=== PATIENT | male | born 1970 | race Caucasian/White ===

== ENCOUNTER 2020-10-07 15:10 | Outpatient (CLI) | payer MEDICARE, MEDICAID, SELFPAY ==
--- NOTE | 2020-10-07 15:31 | XRR_ITS ---
PROCEDURE INFORMATION: Exam: XR Right Hand Exam date and time: 10/07/2020 3:35 PM Age: 49 years old Clinical indication: Pain; Hand; Right; Additional info: Pain RT. Hand TECHNIQUE: Imaging protocol: XR Right hand. Views: 3 or more views. COMPARISON: CR Hand 3 views, RIGHT* [id number] 08/31/2015 8:26 AM FINDINGS: Bones/joints: Negative for acute bony abnormality. Soft tissues: Normal. XR/XR hand RT min 3V* [id number] IMPRESSION: No acute findings.
== END 2020-10-07 15:11 | disposition home or self-care (01) ==
LOC: RAD 15:19
PROVIDERS: PCP Registered Nurse; Visit Provider Registered Nurse
DX: M25.541 Pain in joints of right hand (principal)
CPT/HCPCS: 73130

== ENCOUNTER 2023-01-22 23:33 | Emergency (ER) | payer MEDICARE, MEDICAID, SELFPAY ==
[2023-01-22 23:38] VITALS: BP 165/70; PULSE 87; RESP 18; TEMP 36.6; O2SAT 97; BMI 30.4
--- NOTE | 2023-01-23 00:21 | ED_ITS ---
HPI - Extremity Problem General: Chief complaint: Extremity Injury, Lower Stated complaint: FOOT PAIN Time Seen by Provider: 01/22/23 23:40 History of Present Illness: 52-year-old male patient who is deaf and mute. He is brought in by ambulance due to bilateral foot pain. Police found him around a closed business, and called EMS. He states that he has bilateral foot pain, because he has walked since he got off the [employer] bus in [place] all the way to [place]. No injury. No fever. No chest pain or shortness of breath. No vomiting. MD Complaint: extremity pain and joint pain Onset (ago): hour(s) Pain Consistency: constant Associated symptoms: Deny chest pain or fever(s) Review of Systems Const: Denies: fever(s) Card: Denies: chest pain Resp: Denies: dyspnea or productive cough GI: Denies: abdominal pain or vomiting Physical Exam Const: COMMON NORMALS: no acute distress GENERAL APPEARANCE: cooperative; not ill appearing and not frail appearing HENMT: COMMON NORMALS: normocephalic, atraumatic and Normal external nose present HEAD & SCALP: normocephalic and atraumatic FACE & SINUS: normal facial exam and face symmetric NOSE: Normal external nose present Eye: COMMON NORMALS: Equal, round and reactive pupils present and EOMs intact bilaterally PUPIL: Yes Equal, round and reactive pupils present Neck/C-Spine: GENERAL: Yes trachea midline Chest: CHEST: Yes Symmetrical chest wall rise Resp: COMMON NORMALS: normal respiratory effort, No retractions, No use of acc essory muscles and clear to auscultation bilaterally AUSCULTATION: clear to auscultation bilaterally Cardio: COMMON NORMALS: regular rate and regular rhythm RATE: regular rate RHYTHM: regular rhythm GI: COMMON NORMALS: Normal to inspection, nondistended, normoactive bowel sounds present Extremity: COMMON NORMALS: no pedal edema NARRATIVE EXTREMITY EXAM: Examination of bilateral feet reveals bilateral feet tenderness diffusely. No deformities. Skin changes related to moisture on the plantar surfaces. No significant ulcerations. Neuro: BRITTNEE COMA SCALE: document GCS findings [place] coma scale eye opening: Spontaneous Brittnee coma scale verbal response: Orientated [place] coma scale motor response: Obey commands [place] coma scale total score: 15 SENSORY EXAM: Yes extremities (intact) Psych: COMMON NORMALS: speech normal SPEECH: Yes normal speech Skin: COMMON NORMALS: no rashes or lesions noted GENERAL SKIN EXAM: no rashes or lesions noted Course Vital Signs: Vital signs: Vital Signs Temperature 98 F 01/22/23 23:38 Pulse Rate 72 01/23/23 01:52 Respiratory Rate 18 01/23/23 01:52 Blood Pressure 145/74 01/23/23 01:52 Pulse Oximetry 95 01/23/23 01:52 Oxygen Delivery Me thod Room Air 01/23/23 01:11 MDM - Extremity (Nontraumatic) Medical Decision Making This gentleman's only complaint is bilateral foot pain. There is no significant swelling or deformity to the bilateral feet. He states that his feet hurt because he walked from [place], approximately 80 miles or so. He apparently has family in the area that could come get him. He will be allowed discharge. Discharge Plan Discharge Patient Disposition: Home Clinical Impression: Bilateral foot pain Condition: Stable Prescriptions: New ketorolac 10 mg tablet 10 mg PO TID PRN (Reason: pain) Qty: 10 0RF Discharge Orders: Discharge ED (Routine); Ordered 01/23/23 Ordered By: Mayo Mcmahon Referrals: Kaila Franz FNP [Primary Care Provider] - 4-7 days Patient Instructions: Metatarsalgia (DC), Pain Management Activity Restrictions/Additional Instructions: Rest with your feet elevated. Keep them clean and dry. Ice will help with pain as well. See your doctor next week. Coding Level of Care Code ED Executive Associate for Eugenio Stone
[2023-01-23] MEDS: oxyCODONE-APAP 5-325 mg Tablet 1 TAB PO (01:09)
[2023-01-23 01:11] VITALS: BP 147/70; PULSE 83; RESP 16; O2SAT 97
[2023-01-23 01:52] VITALS: BP 145/74; PULSE 72; RESP 18; O2SAT 95
== END 2023-01-23 01:51 | disposition home or self-care (01) ==
PROVIDERS: Emergency Provider Emergency Medicine; PCP Registered Nurse
DX: M79.672 Pain in left foot (principal); M79.671 Pain in right foot
CPT/HCPCS: 99283

== ENCOUNTER → 2023-03-10 08:39 | Outpatient (BNVA) | payer MEDICARE, MEDICAID, SELFPAY | PROVIDERS: PCP Registered Nurse; Visit Provider Clinical Nurse Specialist Adult Health | DX: E11.9 Type 2 diabetes mellitus without complications (principal) | CPT/HCPCS: 80053; 80061; 83036; 85025 ==

== ENCOUNTER → 2023-06-11 09:39 | Outpatient (BNVA) | payer MEDICARE, MEDICAID, SELFPAY | PROVIDERS: PCP Clinical Nurse Specialist Adult Health; Visit Provider Clinical Nurse Specialist Adult Health | DX: E11.9 Type 2 diabetes mellitus without complications (principal); Z79.4 Long term (current) use of insulin | CPT/HCPCS: 83036 ==

== ENCOUNTER 2023-08-06 17:00 | Emergency (ER) | payer MEDICARE, MEDICAID, SELFPAY ==
--- NOTE | 2023-08-06 17:09 | XRR_ITS ---
PROCEDURE INFORMATION: Exam: XR Left Hand Exam date and time: 08/06/2023 5:28 PM Age: 52 years old Clinical indication: Injury or trauma; Fall; Other: Swelling; Patient HX: PT arrives via EMS with chief complaint of left hand injury. EMS states PT tripped over a stick in the yard and fell forward, attempted to catch self with hands. Obvious deformity to 3 fingers on left hand. TECHNIQUE: Imaging protocol: Radiologic exam of the left hand. Views: 3 or more views. COMPARISON: No relevant prior studies available. FINDINGS: Bones/joints: No fracture. Dislocation of the 3rd 4th and 5th digits at the PIP joint Soft tissues: No acute findings. XR/XR hand LT min 3V* [id number] IMPRESSION: 3-5 digits PIP joint dislocations. No fracture.
--- NOTE | 2023-08-06 17:11 | ED_ITS ---
HPI - Extremity Injury (Upper) General: Chief Complaint: Extremity Injury, Upper Stated Complaint: fall Time Seen by Provider: 08/06/23 17:05 Source: patient Mode of arrival: ambulatory Limitations: no limitations History of Present Illness: 52-year-old male who was walking tripped and fell he landed on his left hand and injured his pinky ring and middle finger on the left hand appears to dislocated all 3 fingers. No lacerations he did receive pain medicine and route his pain is currently a 5 out of 10. Associated symptoms: Denies neck pain Review of Systems Const: Denies: fever(s), chills, body aches or change in appetite ENMT: Denies: throat pain or dental pain Card: Denies: chest pain Resp: Denies: dyspnea GI: Denies: abdominal pain, nausea, vomiting or diarrhea Musc: Reports: extremity pain; Denies: neck pain or back pain Skin/Breast: Denies: rash Neuro: Denies: headache(s) PFS ED PFSH: Medical History Muteness Bilateral hearing loss Generalized anxiety disorder Mild intermittent asthma Essential hypertension Type 2 diabetes mellitus without complications Surgical History Hx of tonsillectomy 2004 History of cochlear implant lost his device. follows with someone in [facility]. History of surgical procedure on mouth reports history of tongue surgery Family History Mother Diabetes Social History Smoking and tobacco/nicotine status: former use of tobacco/nicotine Alcohol intake: never Substance/Drug Use: never Additional social history: living in homeless usp Marital status: Single Highest education level completed: 12th Grade, No Diploma Current occupational status: disabled Physical Exam Const: COMMON NORMALS: no acute distress, patient oriented x3 and healthy appearing HENMT: COMMON NORMALS: normocephalic HEAD & SCALP: normocephalic Neck/C-Spine: COMMON NORMALS: full ROM and supple Chest: COMMONS NORMALS: normal inspection of the chest Resp: COMMON NORMALS: normal respiratory effort Cardio: COMMON NORMALS: regular rate, regular rhythm and No murmurs present (Cardio) RATE: regular rate RHYTHM: regular rhythm Extremity: COMMON NORMALS: full ROM NARRATIVE EXTREMITY EXAM: Dislocations noted to pinky ring and middle finger on the left hand Neuro: COMMON NORMALS: patient oriented x3, moves all extremities and no focal motor deficits Psych: COMMON NORMALS: mental status grossly normal, Normal thought process present and cooperative THOUGHT PROCESS: Normal thought process present Skin: COMMON NORMALS: no rashes or lesions noted and no wounds GENERAL SKIN EXAM: no rashes or lesions noted Procedures Orthopedic Joint Reduction Joint #1: Time Out Performed: Yes Side: left Joint Reduction Location: finger Technique used: traction/counter-traction Post-reduction neuro exam: intact Post-reduction vascular: intact Post Reduction X-Ray Obtained: Yes Post Reduction X-Ray Results: reduced Course Vital Signs: Vital signs: Vital Signs Pulse Rate 83 08/06/23 17:27 Respiratory Rate 15 08/06/23 17:27 Blood Pressure 121/62 08/06/23 17:27 Pulse Oximetry 92 08/06/23 17:27 Oxygen Delivery Me thod Room Air 08/06/23 17:27 MDM - Extremity Injury (Upper) Medical Decision Making Patient presents here with dislocation to left ring pinky and middle fingers was able to successfully reduce the fingers he is stable for discharge follow-up return if worsening. Medical Records I reviewed the patient's medical records. XR interpretation done by ED provider, pending radiology final review ED provider radiology interpretation(s): xr l hand: finger dislocation of 3-5 fingers Discharge Plan Discharge Patient Disposition: Home Clinical Impression: Dislocation, fingers Qualifiers: Encounter type: initial encounter Qualified Code(s): S63.259A - Unspecified dislocation of unspecified finger, initial encounter Condition: Stable Prescriptions: New Naprosyn 500 mg tablet 500 mg PO BID PRN (Reason: pain) Qty: 20 0RF No Action atorvastatin 10 mg tablet 10 mg PO DAILY Qty: 90 3RF albuterol sulfate 90 mcg/actuation HFA aerosol inhaler 2 puff inhalation Q6H PRN (Reason: shortness of breath or wheezing) Qty: 8.5 5RF metformin 1,000 mg tablet 1,000 mg PO BID Qty: 180 3RF Januvia 100 mg tablet 100 mg PO DAILY Qty: 90 3RF insulin glargine [Lantus Solostar U-100 Insulin] 100 unit/mL (3 mL) insulin pen 11 unit SUBCUT BID Qty: 15 11RF (DME) pen needle, diabetic [TechLITE Pen Needle] 31 gauge x 3/16 needle See Rx Instructions .ROUTE .MEDSUPPLY Qty: 100 5RF Rx Instructions: As directed glipizide 10 mg tablet 10 mg PO DAILY Qty: 90 3RF (DME) Blood Glucose Test Strip See Rx Instructions .MEDSUPPLY Qty: 200 12RF Rx Instructions: Use TID as directed with glucometer to check blood sugar (DME) lancets Misc See Rx Instructions .MEDSUPPLY Qty: 200 12RF Rx Instructions: Use as directed to prick skin for blood sugar checks alcohol swabs Pads, Medicated 1 pad topical DIRECTED Qty: 200 12RF Rx Instructions: Use as directed to clean skin prior to finger stick or medication injection (DME) OneTouch Verio test strips Strip See Rx Instructions .ROUTE .MEDSUPPLY Qty: 100 3RF Rx Instructions: As directed (DME) 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 meter Misc See Rx Instructions .MEDSUPPLY Qty: 1 0RF Rx Instructions: Use as directed for checking blood sugar fluticasone propionate [Flovent HFA] 110 mcg/actuation HFA aerosol inhaler 1 puff inhalation BID Qty: 12 11RF olmesartan 20 mg tablet 20 mg PO DAILY Qty: 90 3RF Discharge Orders: Discharge ED (Routine); Ordered 08/06/23 Ordered By: Cheli Marinelli Referrals: Emma Huitron MD [Physician] - 1-3 days Goerge Gupta NP [Primary Care Provider] - 1-3 days Discharge Diet: Advance as tolerated Discharge Activity: Resume usual activity Patient Instructions: Finger Dislocation (ED) Coding Level of Care Code ED Search Specialist for Eugenio Stone
[2023-08-06 17:12] VITALS: BP 121/62; PULSE 85; RESP 16; O2SAT 94
[2023-08-06 17:22] VITALS: RESP 16; O2SAT 93
[2023-08-06] MEDS: morphine 4 mg/mL SDV 1 mL IVP (17:22)
[2023-08-06] MEDS: lidocaine 1% INJ 10 mL (per mL) INJECTION (17:23)
[2023-08-06 17:27] VITALS: BP 121/62; PULSE 83; RESP 15; O2SAT 92
--- NOTE | 2023-08-06 17:39 | XRR_ITS ---
PROCEDURE INFORMATION: Exam: XR Left Hand Exam date and time: 08/06/2023 5:44 PM Age: 52 years old Clinical indication: Patient HX: Lt hand post reduction TECHNIQUE: Imaging protocol: Radiologic exam of the left hand. Views: 3 or more views. COMPARISON: CR (UP EXM, ) 08/06/2023 5:28 PM FINDINGS: Bones/joints: Third, 4th and 5th proximal interphalangeal joints demonstrate normal anatomic alignment. Soft tissues: Normal. XR/XR hand LT 2V [id number] IMPRESSION: Third, 4th and 5th proximal interphalangeal joints demonstrate normal anatomic alignment.
--- NOTE | 2023-08-06 18:16 | PC.NURSE ---
discharge delayed d/t medicaid ride
[2023-08-06 19:58] VITALS: BP 121/62; PULSE 83; RESP 15; O2SAT 92
--- NOTE | 2023-08-09 08:12 | DCPLANNER ---
Message was sent to ortho on 08/06/23 at 0812. Clinic to contact patient.
== END 2023-08-06 19:30 | disposition home or self-care (01) ==
PROVIDERS: Emergency Provider Emergency Medicine; PCP Clinical Nurse Specialist Adult Health
DX: S63.287A Dislocation of proximal interphalangeal joint of left little finger, initial encounter (principal); S63.283A Dislocation of proximal interphalangeal joint of left middle finger, initial encounter; S63.285A Dislocation of proximal interphalangeal joint of left ring finger, initial encounter; W01.0XXA Fall on same level from slipping, tripping and stumbling without subsequent striking against object, initial encounter; I10 Essential (primary) hypertension; E11.9 Type 2 diabetes mellitus without complications; Z87.891 Personal history of nicotine dependence
CPT/HCPCS: 26770; 73120; 73130; 96374; 99284; J2270

== ENCOUNTER 2024-04-09 09:13 | Emergency (ER) | payer MEDICARE, MEDICAID, SELFPAY ==
[2024-04-09 10:11] VITALS: BP 127/62; PULSE 100; RESP 17; TEMP 37.5; O2SAT 97
--- NOTE | 2024-04-09 12:18 | W.ED.SKABFB ---
HPI - Skin/Abscess/Foreign Bdy General: Chief complaint: Skin/Abscess/Foreign Body Stated complaint: spider bite lt arm Time Seen by Provider: 04/09/24 12:18 History of Present Illness: This patient is a deaf gentleman who presents with what he suspects is a spider bite on his left arm. He is homeless and says that [place] in the park when he felt a bite. He is diabetic and is on oral treatment for that. He does have a primary care doctor here in [place]. The bite occurred about 4 days ago. It has gotten more red and painful. He denies fever. He does not feel well in general. Related Data Previous Rx's Medication Instructions Recorded albuterol sulfate 90 mcg/actuation 2 puff inhalation Q6H PRN 03/10/23 aerosol inhaler shortness of breath or wheezing #8.5 grams atorvastatin 10 mg tablet 10 mg PO DAILY #90 tabs 03/10/23 metformin 1,000 mg tablet 1,000 mg PO BID #180 tabs 03/10/23 sitagliptin phosphate 100 mg 100 mg PO DAILY #90 tabs 03/10/23 tablet (Januvia) blood sugar diagnostic (Blood #200 ea 06/11/23 Glucose Test strips) glipizide 10 mg tablet 10 mg PO DAILY #90 tabs 06/11/23 insulin glargine 100 unit/mL (3 11 unit (0.11 mL) SUBCUT BID #15 mL 06/11/23 mL) subcutaneous pen (Lantus Solostar U-100 Insulin) lancets #200 ea 06/11/23 pen needle, diabetic 31 gauge x #100 ea 06/11/23 3/16 (TechLITE Pen Needle) alcohol swabs 1 pad topical DIRECTED #200 ea 07/06/23 blood sugar diagnostic (OneTouch #100 ea 07/06/23 Verio test strips) 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 meter #1 ea 07/06/23 fluticasone propionate 110 1 puff inhalation BID #12 grams 07/06/23 mcg/actuation HFA aerosol inhaler (Flovent HFA) olmesartan 20 mg tablet 20 mg PO DAILY #90 tabs 07/06/23 naproxen 500 mg tablet (Naprosyn) 500 mg PO BID PRN pain #20 tabs 08/06/23 doxycycline hyclate 100 mg capsule 100 mg PO BID 10 days #20 caps 04/09/24 hydrocodone 5 mg-acetaminophen 325 1 tab PO Q6H PRN pain #10 tabs 04/09/24 mg tablet Allergies Allergy/AdvReac Type Severity Reaction Status Date / Time insulin glargine Allergy Unknown Verified 08/06/23 17:20 [From Lantus U-100 Insulin] metformin Allergy Unknown Verified 08/06/23 17:20 sitagliptin [From Januvia] Allergy Unknown Verified 08/06/23 17:20 PFSH ED PFSH: Medical History Muteness Bilateral hearing loss Generalized anxiety disorder Mild intermittent asthma Essential hypertension Type 2 diabetes mellitus without complications Surgical History Hx of tonsillectomy 2004 History of cochlear implant lost his device. follows with someone in [facility]. History of surgical procedure on mouth reports history of tongue surgery Family History Mother Diabetes Social History Smoking and tobacco/nicotine status: former use of tobacco/nicotine Alcohol intake: never Substance/Drug Use: never Additional social history: living in homeless halfway Marital status: Single Highest education level completed: 12th Grade, No Diploma Current occupational status: disabled Physical Exam Const: COMMON NORMALS: no acute distress, no limitations and alert GENERAL APPEARANCE: cooperative and comfortable HENMT: HEAD & SCALP: normal to inspection FACE & SINUS: normal facial exam Eye: GENERAL EYE: appearance normal, both eyes and all related structures Neck/C-Spine: COMMON NORMALS: supple, no meningeal signs and no JVD Chest: COMMONS NORMALS: normal inspection of the chest Resp: COMMON NORMALS: normal respiratory effort, No use of accessory muscles and clear to auscultation bilaterally AUSCULTATION: clear to auscultation bilaterally Cardio: COMMON NORMALS: no JVD, regular rate, regular rhythm and No murmurs present (Cardio) RATE: regular rate RHYTHM: regular rhythm Extremity: COMMON NORMALS: normal to inspection Neuro: COMMON NORMALS: no focal motor deficits SENSORIUM/ORIENTATION: Yes alert MENINGEAL SIGNS: Yes no meningeal signs Psych: COMMON NORMALS: mental status grossly normal, cooperative and normal affect Skin: COMMON NORMALS: turgor normal NARRATIVE SKIN EXAM: On the left upper arm just proximal to the olecranon there is a approximately 1 cm eschar. There is surrounding erythema. No fluctuance. No involvement of the joint. Distal neurovascular function is normal. GENERAL SKIN EXAM: turgor normal Course Vital Signs: Vital signs: Vital Signs Temperature 99.5 F 04/09/24 10:11 Pulse Rate 98 04/09/24 12:55 Respiratory Rate 17 04/09/24 10:11 Blood Pressure 131/72 04/09/24 12:55 Pulse Oximetry 99 04/09/24 12:55 Oxygen Delivery Me thod Room Air 04/09/24 10:11 MDM - Skin/Abscess/Foreign Bdy Medicial Decision Making It is entirely possible that this could be a brown recluse bite. It does appear to be infected with cellulitis and will be treated with doxycycline. The patient does have a low-grade fever of 99.5. He is diabetic but seems to control his blood sugars quite well. He understands the need for follow-up. He understands return precautions. No radiology studies performed this visit Discharge Plan Discharge Patient Disposition: Home Clinical Impression: Muteness, Cellulitis Type 2 diabetes mellitus without complications Qualifiers: Diabetes mellitus penitentiary insulin use: with electronic warfare technical use Qualified Code(s): E11.9 - Type 2 diabetes mellitus without complications Bilateral hearing loss Qualifiers: Hearing loss type: unspecified Qualified Code(s): H91.93 - Unspecified hearing loss, bilateral Brown recluse spider bite Qualifiers: Encounter type: initial encounter Condition: Stable Prescriptions: New hydrocodone-acetaminophen 5-325 mg tablet 1 tab PO Q6H PRN (Reason: pain) Qty: 10 0RF doxycycline hyclate 100 mg capsule 100 mg PO BID 10 Days Qty: 20 0RF No Action atorvastatin 10 mg tablet 10 mg PO DAILY Qty: 90 3RF albuterol sulfate 90 mcg/actuation HFA aerosol inhaler 2 puff inhalation Q6H PRN (Reason: shortness of breath or wheezing) Qty: 8.5 5RF metformin 1,000 mg tablet 1,000 mg PO BID Qty: 180 3RF Januvia 100 mg tablet 100 mg PO DAILY Qty: 90 3RF insulin glargine [Lantus Solostar U-100 Insulin] 100 unit/mL (3 mL) insulin pen 11 unit SUBCUT BID Qty: 15 11RF (DME) pen needle, diabetic [TechLITE Pen Needle] 31 gauge x 3/16 needle See Rx Instructions .ROUTE .MEDSUPPLY Qty: 100 5RF Rx Instructions: As directed glipizide 10 mg tablet 10 mg PO DAILY Qty: 90 3RF (DME) Blood Glucose Test Strip See Rx Instructions .MEDSUPPLY Qty: 200 12RF Rx Instructions: Use TID as directed with glucometer to check blood sugar (DME) lancets Misc See Rx Instructions .MEDSUPPLY Qty: 200 12RF Rx Instructions: Use as directed to prick skin for blood sugar checks alcohol swabs Pads, Medicated 1 pad topical DIRECTED Qty: 200 12RF Rx Instructions: Use as directed to clean skin prior to finger stick or medication injection (DME) OneTouch Verio test strips Strip See Rx Instructions .ROUTE .MEDSUPPLY Qty: 100 3RF Rx Instructions: As directed (DME) 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 meter Misc See Rx Instructions .MEDSUPPLY Qty: 1 0RF Rx Instructions: Use as directed for checking blood sugar fluticasone propionate [Flovent HFA] 110 mcg/actuation HFA aerosol inhaler 1 puff inhalation BID Qty: 12 11RF olmesartan 20 mg tablet 20 mg PO DAILY Qty: 90 3RF Naprosyn 500 mg tablet 500 mg PO BID PRN (Reason: pain) Qty: 20 0RF Discharge Orders: Discharge ED (Routine); Ordered 04/09/24 Ordered By: Gema Pastrana Referrals: George Gupta WAISTBAND SETTER LOCKSTITCH [Primary Care Provider] - Discharge Diet: Usual diet Discharge Activity: Resume usual activity Patient Instructions: Opioid Safety, Pain Management Coding Level of Care Code ED Outdoor Adventure Guides for Eugenio Stone
[2024-04-09 12:55] VITALS: BP 131/72; PULSE 98; O2SAT 99
[2024-04-09] MEDS: doxycycline 100 mg Tablet PO (12:56)
[2024-04-09] MEDS: HYDROcodone-acetaminophen 5-325 mg Tablet 1 TAB PO (12:56)
== END 2024-04-09 12:56 | disposition home or self-care (01) ==
PROVIDERS: Emergency Provider Emergency Medicine; PCP Clinical Nurse Specialist Adult Health
DX: T63.331A Toxic effect of venom of brown recluse spider, accidental (unintentional), initial encounter (principal); H91.93 Unspecified hearing loss, bilateral; E11.9 Type 2 diabetes mellitus without complications; R47.01 Aphasia; Z79.84 Long term (current) use of oral hypoglycemic drugs; Z79.4 Long term (current) use of insulin; L03.114 Cellulitis of left upper limb; Z59.02 Unsheltered homelessness
CPT/HCPCS: 99283

== ENCOUNTER → 2024-05-10 11:53 | Outpatient (BNVA) | payer MEDICARE, MEDICAID, SELFPAY | PROVIDERS: PCP Clinical Nurse Specialist Adult Health; Visit Provider Family Medicine | DX: Z13.220 Encounter for screening for lipoid disorders (principal); Z51.81 Encounter for therapeutic drug level monitoring; E53.8 Deficiency of other specified B group vitamins; E11.9 Type 2 diabetes mellitus without complications; E55.9 Vitamin D deficiency, unspecified | CPT/HCPCS: 80053; 80061; 82306; 82607; 83036; 85025 ==

== ENCOUNTER 2024-07-17 08:56 | Outpatient (CLI) | payer MEDICARE, MEDICAID, SELFPAY ==
[2024-07-17 09:03] VITALS: BMI 33.7
--- NOTE | 2024-07-17 09:04 | ECG_ITS ---
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 Interpretive Statements Lung unchanged pre/post procedure; Intraprocedure shortess of breath; Symptoms resoled by discharge PROCEDURE: At the baseline, the EKG revealed normal sinus rhythm with a poor R wave progression. Diffuse nonspecific T wave changes. Minimal left axis deviation.. The baseline heart was 76 bpm with a blood pressue of 98/69 mm of Hg Lexiscan was infused over a period of 20 seconds. A total of 0.4 milligrams of Lexiscan was infused. The stress phase was continued for a total of 5 minutes. Heart rate at the end of the stress phase was 82 bpm with a blood pressure 96/64 mm of Hg. The EKG at the peak infusion revealed no significant changes. Sestamibi was injected 20 seconds after the Lexiscan infusion. Heart rate at the end of the recovery phase was 80 bpm with a blood pressure of 95/65 mm of Hg. CONCLUSION: 1. No significant EKG changes with the LexiScan infusion 2. No LexiScan induced chest pain or cardiac arrhythmia 3. Normal blood pressure and heart rate response 4. Sestamibi/sestamibi perfusion scan pending; see separate report. Electronically Signed On 07-17-2024 17:49:11 INVENTORY ASSISTANT by He Knight M.D. [email or web address]
--- NOTE | 2024-07-17 09:04 | NMCV_ITS ---
NM bry perf SPECT r/s* [id number] Cristian Kowalski Age: 53 Gender: M : 1970 Exam Date: 07/17/2024 10:17 Ordering Phys: Braulio Hollins MD Technologist: ROME De Leon Exam Location: [facility] Indications: cp STRESS TEST Please see separate stress test report in [facility] for full findings IMAGE PROTOCOL Rest/Stress 1 Lexiscan Day Radiopharmaceutical Dose (mCi) Administration Site Administered by Rest: Tc-99m 10.8 IV ROME De Leon Sestamibi Stress:Tc-99m 33 IV ROME Mcdonald Sestamibi Rest: 17-Jul-2024 60 Discovery 630 Stress: 17-Jul-2024 30 Discovery 630 0.4mg Lexiscan. Images obtained in supine and prone position. SPECT RESULTS Technical Quality: Good Raw Data Analysis: Normal Image Corrections: No attenuation or motion correction applied Summed Stress Score: 22 Summed Rest Score: 17 Summed Difference Score: 5 PERFUSION FINDINGS Moderate to large area of moderate to severely decreased tracer uptake were noted involving all apical segments, basal and mid inferior, mid inferolateral, mid anterior and mid anteroseptal segments. Some reversibility was noted in the apical, inferior and anterior segments FUNCTIONAL RESULTS (calculated via Gated SPECT) Stress Image LV EF (%): 54 Stress EDV (mL):127 TID: 1.06 Stress ESV (mL):59 FUNCTIONAL FINDINGS: Segmental wall motion analysis revealed mild hypokinesis of the LV apex. IMPRESSIONS 1. Myocardial perfusion imaging revealing moderate to large area of moderate to severely decreased tracer uptake involving the anterior, anteroseptal, inferior, inferolateral and all the apical segments with some reversibility suggesting myocardial scarring with ischemia in the distribution of the left anterior descending artery and right coronary artery. The summed stress score was 22 with a difference score of 5 2. Normal LV ejection fraction 54%. 3. Wall motion abnormality as mentioned above. 4. Mildly dilated LV cavity. No similar previous studies are available for comparison Dr He Knight MD FAC (Electronically Signed) Final Date: 17 July 2024 14:03 S
[2024-07-17] MEDS: regadenoson 0.4 Mg/5 ml Syringe IVP (11:28)
[2024-07-17 11:50] VITALS: BP 96/65; PULSE 84
== END 2024-07-17 08:57 | disposition home or self-care (01) ==
PROVIDERS: PCP Family Medicine; Visit Provider Family Medicine
DX: R07.9 Chest pain, unspecified (principal); R94.39 Abnormal result of other cardiovascular function study; I51.7 Cardiomegaly
CPT/HCPCS: 36415; 78452; 93017; 96374; A9500; J2785

== ENCOUNTER → 2024-08-03 12:02 | Outpatient (BNVA) | payer MEDICARE, MEDICAID, SELFPAY | PROVIDERS: PCP Family Medicine; Referring Provider Family Medicine; Visit Provider Internal Medicine Cardiovascular Disease | DX: R07.9 Chest pain, unspecified (principal); R94.39 Abnormal result of other cardiovascular function study | CPT/HCPCS: 99204 ==

== ENCOUNTER 2024-08-17 07:14 | Outpatient (CLI) | payer MEDICARE, MEDICAID, SELFPAY ==
[2024-08-17] VITALS (18 sets, daily range): BP systolic 98–134; BP diastolic 61–80; PULSE 60–74; RESP 10–16; TEMP 37; O2SAT 94–98; BMI 37.0
[2024-08-17 08:16] LABS: Basophils # 0.1 10^3/uL (0.0-0.1); Basophils % 0.8 %; Eosinophils # 0.3 10^3/uL (0.0-0.8); Eosinophils % 3.5 %; Hematocrit 41.3 % (37-53); Lymphocytes # 2.1 10^3/uL (0.8-4.8); Lymphocytes % 27.7 %; Mean Corpuscular HGB Conc 33.9 g/dL (30-55); Mean Corpuscular Hemoglobin 29.2 pg (27-33); Mean Platelet Volume 10.4 fL (7.4-10.4); Monocytes # 0.8 10^3/uL (0.2-0.9); Monocytes % 10.2 %; Neutrophils # 4.43 10^3/uL (1.8-7.7); Neutrophils % 57.4 %; Nucleated Red Blood Cells % 0 %; Platelet Count 196 10^3/cmm (157-399); Red Cell Distribution Width 12.6 % (12.1-15.1); White Blood Count 7.72 10^3/uL (3.29-11.43)
[2024-08-17] MEDS: diphenhydrAMINE 50 mg Capsule PO (08:25)
[2024-08-17] MEDS: aspirin 325 mg Tablet PO (08:25)
[2024-08-17 08:26] LABS: Anion Gap 16.1 (5-19); Blood Urea Nitrogen 20 mg/dL (6-20); Calcium 8.7 mg/dL (8.5-10.5); Carbon Dioxide 26 mmol/L (22-29); Chloride 103 mmol/L (98-107); Glomerular Filtration Rate 100.7 mL/min (90-130); Glucose 163 mg/dL (65-115); Osmolality Calculated 298 mOsm/kg (285-295); Potassium 4.1 mmol/L (3.5-5.1); Sodium 141 mmol/L (136-145)
--- NOTE | 2024-08-17 08:30 | XACV_ITS ---
Exam Room: 2 Ht: 173 cm Wt: 111 kg BSA: 2.35 m2 Gender: Male : 1970 Any Known Allergies: No known allergies Exam Priority: Routine Procedure(s): Procedure Description: Diagnostic procedure Procedure Description: PCI procedure Procedure Description: Left Heart Catheterization Procedure Description: Drug Eluting Coronary Stent Procedure Description: PTCA Procedure Description: Miscellaneous Procedure Description: ACT [facility] Cath Status: Elective Diagnostic Findings * Left Main has no disease. * Circumflex has no disease. * Mid Left Anterior Descending to Distal Left Anterior Descending: subtotal occlusion, MARINO: 1 flow. * Distal Left Anterior Descending: severe 90% stenosis, MARINO: 3 flow. * Mid Right Coronary Artery to Distal Right Coronary Artery: severe 90% stenosis, MARINO: 3 flow. * Distal Right Coronary Artery: severe 90% stenosis, MARINO: 3 flow. * 1st Diagonal: significant 80% stenosis, MARINO: 3 flow. * Coronary angiography shows right dominance. PCI Status: Elective PCI Indication: New Onset Angina <= 2 months Interventional Findings * Mid Left Anterior Descending to Distal Left Anterior Descendin% stenosis treated with a AB MINI TREK 2.00X30 RX BALLOON, MDT R BERNARDO 2.25X30 KENISHA, and MDT NC EUPHORA RX [id number] BALLOON. 0% residual stenosis, MARINO: 3 flow. * Distal Left Anterior Descendin% stenosis treated with a AB MINI TREK 2.00X30 RX BALLOON. 20% residual stenosis, MARINO: 3 flow. * Mid Right Coronary Artery to Distal Right Coronary Artery: 90% stenosis treated with a MDT R BERNARDO 3.0X38 KENISHA, MDT NC EUPHORA RX 3.00Y79FE BALLOON, and MDT NC EUPHORA RX [id number] BALLOON. 0% residual stenosis, MARINO: 3 flow. * Distal Right Coronary Artery: 90% stenosis treated with a AB MINI TREK 2.00X25 RX BALLOON, and MDT R BERNARDO 2.5X30 KENISHA. 0% residual stenosis, MARINO: 3 flow. Conclusions 1. Mid Left Anterior Descending to Distal Left Anterior Descending was treated with a Balloon, Drug Eluting Stent, and Balloon. 2. Distal Left Anterior Descending was treated with a Balloon. 3. Mid Right Coronary Artery to Distal Right Coronary Artery was treated with a Drug Eluting Stent, Balloon, and Balloon. 4. Distal Right Coronary Artery was treated with a Balloon, and Drug Eluting Stent. 5. There is subtotal occlusion coronary artery disease with two vessel disease. Recommendations * 1-Return to inpatient for close monitoring and routine cath care 2-Risk factor modification for secondary prevention 3-Statin and aspirin 81 mg life-long, if tolerated 4-Patient was pre-loaded with 600 mg of Plavix, continue Plavix 75mg p.o. daily for at least one year. We will assess at the end of one year again to continue if further or not 5-Continue optimal medical management 6-Follow up with Dr. Christopher in four weeks and your primary care in 10 days. Interventional RX Recommendation: PCI w/o planned CABG Diagnostic RX Recommendation: PCI w/o planned CABG Pressures Phase:Rest AO : 119 / 72 ( 92 ) @ 11:10:00 AM 117 / 70 ( 92 ) @ 11:10:00 AM 115 / 69 ( 89 ) @ 11:25:00 AM 111 / 67 ( 86 ) @ 11:38:00 AM 105 / 74 ( 89 ) @ 11:47:00 AM 118 / 72 ( 93 ) @ 12:18:00 PM LV : 123 / 6 / 23 @ 11:10:00 AM 124 / 3 / 21 @ 11:10:00 AM Valves Phase:DefaultPhase AV : 0.0 @ 12:41:00 PM 0.0 @ 12:41:00 PM AV Mean Gradient: 0.0 @ 12:41:00 PM Clinical Evaluation EBL: 5mL-10mL Procedural Details Procedure Consent Obtained. Pre-Procedure Time Out. Identified patient by full name and date of as verbalized by the patient/guarantor. Does the consent match the physician's order: Yes. Accurate & Complete Informed Consent: Yes. Inpatient/Outpatient History & Physical on Chart: Yes. If H&P is completed, is and addenduem needed: No. Visualize and Verify Site with Patient/Guarantor: N/A. Relevant Radiology Images available: Yes. The risks, benefits, and alternatives of sedation and/or procedure were discussed by physician. The patient agrees to continue. Procedure started. [facility] Clinical Fraility Score: 3: Managing Well. Vet Tech Indications: Worsening Angina/Unstable angina/Abnormal stress test. Chest Pain Symptom Assessment: Typical Angina Symptoms. Cardiovascular Instability: No. Correct patient, site and procedure confirmed by cath team. PERRLA. Strong, equal hand supervisor plate forming bilaterally. Lungs clear x 5 lobes. IV Site on Arrival: 20 gauge in the left anticubital. IV Fluids: 0.9% NaCl at KVO. 0 mL infused prior to cardiac cath rn. Pre Procedural Pulses: bilateral dorsalis pedis was 1+. Pre Procedural Pulses: bilateral posterior tibial was 1+. Pre Procedural Pulses: bilateral radial was 3+. Oxygen started at 2liters/min via nasal canula. right groin was prepped with chloroprep then draped in the usual sterile fashion. right radial was prepped with chloroprep then draped in the usual sterile fashion. Physician notified. Baseline sample Acquired. HR: 63 BPM. Patient's family unavailable. Equipment: 6F - Radial. Cardiac Cath Pack. ACIST Manifold Kit Model BT 2000. Heparinized Saline (2 units/mL), 1000 mL bag. Physician arrived. Physician scrubbed in. Immediate Pre-Procedure Time Out. Correct Patient: Yes; Correct Procedure: Yes; Correct Site: Yes; Correct Patient Position: Yes; Correct Supplies: Yes; Dried Flammable Prep: Yes; Blood Products Available: N/A;. Lidocaine 1% infiltrated to the right radial. Arterial access obtained. A 5 new zealander Mane catheter in over the exchange J wire. EDP Sample taken: LV 123/6,23; HR: 56 BPM; SpO2: 100%. Pullback taken: LV 124/3,21; AO 119/72(92); Mean: 0mmHg, Peak to Peak: 0mmHg, SEP: 4sec/min; HR: 62 BPM; SpO2: 100%. Catheter removed over the exchange J wire. A 5 new zealander JR4 catheter in over the exchange J wire. Exchange J wire out. 0.035 x 260cm stiff angled glidewire in. Glidewire out. Multiple views taken of right coronary artery. A 5 new zealander JL4 catheter in over the exchange J wire. Catheter removed over the exchange J wire. 6 new zealander XB 3.5 guide catheter was inserted over the exchange J wire. Multiple views taken of left coronary artery. Runthrough guidewire was advanced through the guide catheter to lesion in the mid LAD. ACT drawn. Results 261 seconds. Therapeutic limits - pre-heparin administration 90-150 seconds and monitoring heparin during a vascular procedure >250 seconds. Inflation number : 1 A AB MINI TREK 2.00X30 RX BALLOON was prepped and advanced across the Dist LAD , then inflated to 8 MIGUEL for 0:14 seconds. Inflation number: 1 The AB MINI TREK 2.00X30 RX BALLOON was reinflated across the Mid LAD, to 10 MIGUEL for 0:21 seconds. Inflation number: 2 The AB MINI TREK 2.00X30 RX BALLOON was reinflated across the Mid LAD, to 12 MIGUEL for 0:22 seconds. Inflation number: 3 The AB MINI TREK 2.00X30 RX BALLOON was reinflated across the Mid LAD, to 14 MIGUEL for 0:28 seconds. Inflation number: 4 The AB MINI TREK 2.00X30 RX BALLOON was reinflated across the Mid LAD, to 14 MIGUEL for 0:13 seconds. Balloon out. Results checked. Inflation Number : 5 A MDT R BERNARDO 2.25X30 KENISHA -Lot Number #[id number] prepped and advanced across the Mid LAD. The stent was deployed at 14 MIGUEL for 0:23 seconds. Exp. 2026.11.26. Stent balloon out over wire. Inflation number : 6 A MDT NC EUPHORA RX 2.31Y81PO BALLOON was prepped and advanced across the Mid LAD , then inflated to 12 MIGUEL for 0:16 seconds. Inflation number: 7 The MDT NC EUPHORA RX 2.60Y43DR BALLOON was reinflated across the Mid LAD, to 16 MIGUEL for 0:18 seconds. Inflation number: 8 The MDT NC EUPHORA RX 2.67J44PL BALLOON was reinflated across the Mid LAD, to 14 MIGUEL for 0:21 seconds. Balloon out. Results checked. Wire out. Guide catheter out over the exchange J wire. 6 new zealander AL 0.75 SH guide catheter was inserted over the exchange J wire. ACT drawn. Results 370 seconds. Therapeutic limits - pre-heparin administration 90-150 seconds and monitoring heparin during a vascular procedure >250 seconds. Runthrough guidewire was advanced through the guide catheter to lesion in the distal RCA. Inflation number : 1 A AB MINI TREK 2.00X25 RX BALLOON was prepped and advanced across the Dist RCA , then inflated to 12 MIGUEL for 0:14 seconds. Inflation number: 2 The AB MINI TREK 2.00X25 RX BALLOON was reinflated across the Dist RCA, to 16 MIGUEL for 0:12 seconds. Inflation number: 3 The AB MINI TREK 2.00X25 RX BALLOON was reinflated across the Dist RCA, to 18 MIGUEL for 0:15 seconds. Inflation number: 4 The AB MINI TREK 2.00X25 RX BALLOON was reinflated across the Dist RCA, to 18 MIGUEL for 0:00 seconds. Inflation number: 5 The AB MINI TREK 2.00X25 RX BALLOON was reinflated across the Dist RCA, to 18 MIGUEL for 0:15 seconds. Inflation number: 6 The AB MINI TREK 2.00X25 RX BALLOON was reinflated across the Dist RCA, to 18 MIGUEL for 0:18 seconds. Balloon out. Inflation Number : 7 A MDT R BERNARDO 2.5X30 KENISHA -Lot Number# [id number] was prepped and advanced across the Dist RCA. The stent was deployed at 14 MIGUEL for 0:21 seconds. Exp. . Stent balloon out over wire. Inflation Number : 1 A MDT R BERNARDO 3.0X38 KENISHA -Lot Number# [id number] prepped and advanced across the Mid RCA. The stent was deployed at 14 MIGUEL for 0:19 seconds. Exp. . Stent balloon out over wire. Inflation number : 2 A MDT NC EUPHORA RX [id number] BALLOON was prepped and advanced across the Mid RCA , then inflated to 14 MIGUEL for 0:22 seconds. Inflation number: 3 The MDT NC EUPHORA RX 3.55J05IK BALLOON was reinflated across the Mid RCA, to 14 MIGUEL for 0:22 seconds. Inflation number: 4 The MDT NC EUPHORA RX 3.80O71WM BALLOON was reinflated across the Mid RCA, to 14 MIGUEL for 0:17 seconds. Balloon out. Inflation number : 5 A MDT NC EUPHORA RX 3.61G97VL BALLOON was prepped and advanced across the Mid RCA , then inflated to 12 MIGUEL for 0:08 seconds. Balloon out. ACT drawn. Results 315 seconds. Therapeutic limits - pre-heparin administration 90-150 seconds and monitoring heparin during a vascular procedure >250 seconds. Results checked. Wire out. Guide catheter out. Dr. Christopher scrubbed out. A TR Band was successful obtaining hemostatsis at the Right Radial artery insertion site. Post Procedure: Pulses reassessed and unchanged. PERRLA. Strong, equal hand supervisor plate forming bilaterally. No VTE prophylaxis required. Medication's Wasted: Lidocaine 1% = 18 mL. Medication's Wasted: Nitro = 49.0 mg. Medication's Wasted: Other = Versed 1 mg. Medication's Wasted: Other = Aggrastat 45 mL. Total IV fluids: 150 mL. PCI Indication: CAD (without ischemic symptoms). Post-op diagnosis: PCI of the mid and distal LAD x 1 KENISHA/PCI of the mid and distal RCA x 2 KENISHA. Complications: none. Estimated blood loss: 5mL-10mL. Responsiveness - Normal response to verbal stimuli; alert and oriented, PERRLA. Airway - Unaffected, no intervention required; spontaneous ventilation. Circulation: W/N/L, pulses unchanged. Procedure completed. Nausea/Vomiting: No. Patient transferred by wheelchair to CPRU. Vital chart was stopped. Access Site Site: Right Radial artery Sheath Size: 6 Fr Hemostasis Method: TR Band Hemostasis Success: Successful Procedure Medications Start: 11:01 AM Stop: : AM Medication: Versed Amount: 1 mg Route: I.V. Start: 11:01 AM Stop: : AM Medication: Fentanyl Amount: 50 mcg Route: I.V. Start: 11:03 AM Stop: :03 AM Medication: Nitrogylcerin Amount: 200 mcg Route: I.A. Start: 11:04 AM Stop: :04 AM Medication: Versed Amount: 1 mg Route: I.V. Start: 11:09 AM Stop: 11:09 AM Medication: Heparin Amount: 5000 units Route: I.V. Start: 11:36 AM Stop: 11:36 AM Medication: Heparin Amount: 3000 units Route: I.V. Start: 11:38 AM Stop: 11:38 AM Medication: Nitrogylcerin Amount: 200 mcg Route: I.C. Start: 11:45 AM Stop: 11:45 AM Medication: Aggrastat 12.5 mg/250 mL Amount: 55 ml Route: I.V. bolus Start: 11:47 AM Stop: 11:47 AM Medication: Nitrogylcerin Amount: 200 mcg Route: I.C. Start: 11:50 AM Stop: 11:50 AM Medication: Versed Amount: 1 mg Route: I.V. Start: 11:50 AM Stop: 11:50 AM Medication: Fentanyl Amount: 25 mcg Route: I.V. Start: 12:21 PM Stop: 12:21 PM Medication: Nitrogylcerin Amount: 200 mcg Route: I.C. Start: 12:29 PM Stop: 12:29 PM Medication: Plavix Amount: 600 mg Route: P.O. I, the attending physician, have reviewed and verified all procedure medications. Yes, all medications given per verbal order History/Risk Factors Hypertension: Yes Dyslipidemia: No Peripheral Arterial Disease (PAD): No Myocardial Infarction (DC): No Obesity: Yes Renal Disease: No Tobacco Use: Former Prior Interventions PCI: No CABG: No Valve Surgery: No Report Signatures Interventional Workflow Finalized by Deon Christopher MD on 08/26/2024 06:15 PM Diagnostic Workflow Finalized by Deon Christopher MD on 08/26/2024 06:15 PM
--- NOTE | 2024-08-17 10:24 | P.HP_ITS ---
Same Day Surgery H&P Indication for Procedure/HPI DATE OF PROCEDURE: August 17, 2024 CHIEF COMPLAINT/INDICATIONFOR SURGICAL PROCEDURE: Abnormal stress test Chest pain suggestive of angina pectoris PREOP DIAGNOSIS: Abnormal stress test chest PLANNED PROCEDURE: Operation Date: 08/17/24 08:30 Proposed Procedures p Cardiac Catheterization - [facility] w/wo LV & Coros(Left) - Deon Christopher MD 53-year-old male with hearing deficiency was seen by me in the clinic on 03 August 2024. Patient was complaining of worsening of chest pain along with shortness of breath. Stress test was performed which showed ischemia in LAD and RCA territory patient never had any angiogram or invasive test before. He was started on guideline medical therapy for ischemia. Since he continues to have chest pressure and because of fact stress test was abnormal we decided to bring patient to the Equal Opportunity Counselor. Informed consent was obtained all risk-benefit and alternative for the procedure including 2% risk of stroke major bleed urgent emergent bypass surgery vascular surgery contrast induced nephropathy hematoma were discussed with the patient he would like to proceed with it. Medications/Allergies* Allergies/Adverse Reactions Allergy/AdvReac Type Severity Reaction Status Date / Time No Known Allergies Allergy Verified 08/17/24 08:34 Current Medications: Generic Name Dose Route Start Last Admin Trade Name Freq PRN Reason Stop Dose Admin Sodium Chloride 1,000 mls @ 50 mls/hr 08/17/24 07:30 08/17/24 08:33 Sodium Chloride 0.9% IV 08/18/24 03:29 Not Given .Q20H ONE Pertinent History/Comorbid Conditions* Medical History (Updated 07/31/24 @ 21:01 by Braulio Hollins MD) Muteness Bilateral hearing loss Generalized anxiety disorder Mild intermittent asthma Essential hypertension Type 2 diabetes mellitus without complications Surgical History (Updated 03/10/23 @ 13:12 by George Gupta NP) Hx of tonsillectomy 2003 History of cochlear implant lost his device. follows with someone in [facility]. History of surgical procedure on mouth reports history of tongue surgery Family History (Updated 03/10/23 @ 13:13 by George Gupta NP) Mother, etoh Diabetes Mother Social History Smoking and tobacco/nicotine status: former use of tobacco/nicotine Quit status (tobacco/nicotine): has quit using Year quit tobacco: 1998 Former quit date comment: 03/1999 Alcohol intake: former Year of sobriety/quit date alcohol: 2021 Former alcohol use details: He quit 2 years after his mom Substance/Drug Use: never Additional social history: living in homeless snf Marital status: Single Highest education level completed: 12th Grade, No Diploma Current occupational status: disabled Pertinent Exam Findings alert, oriented x 3, clear to auscultation bilaterally, regular rate & rhythm and operative site marked Conscious Sedation Assessment PATIENT ASSESSED PRIOR TO SEDATION, WITH NO CHANGE NOTED: Yes AIRWAY EVAL/ANESTHESIA PLAN: ASA II, Risks, benefits & alternatives of sedation and/or procedure discussed and Patient agrees to continue as planned Recommendations Surgery/Procedure today Coding Level of Care Code Acute Code for [facility] Fwd
--- NOTE | 2024-08-17 12:32 | P.PCN_ITS ---
Procedure Note: Date of procedure: 08/17/24 Pre-procedure diagnosis: Abnormal stress test/status post PCI to mid LAD and mid and distal RCA Procedure: Left heart catheterization: Subtotally occluded mid and distal LAD with MARINO I flow, high-grade mid and distal RCA long stenosis Status post balloon angioplasty followed by PCI postdilated with noncompliant balloon to mid LAD with excellent angiographic result and tenriism of MARINO-3 flow. Status post balloon angioplasty and 2 overlapping stent placement in mid and distal RCA postdilated noncompliant balloon. Excellent angiographic result with MARINO-3 flow was noted. Due to extreme tortuosity of the right subclavian vessel were not able to perform the LV gram however LVEDP was 26 mmHg (using Mane catheter) Plan: Admit patient for overnight observation Continue aspirin statin Plavix. Patient was loaded with 60 mg Plavix in the Nut Tightener. Cardiac diet. IV fluid 100 mL/h for next 10 hours Radial band as per protocol Full note to be dictated Coding Level of Care Code Acute Code for Eugen[facility] Stone
--- NOTE | 2024-08-17 12:44 | SUR.PHASEI ---
POST CATH NOTE Received patient from mill laborer. Status post peripheral angiogram via the right radial approach.TR Band in place to the radial access site. They are hemostatic and free of hematoma formation or s/s of active bleeding. Verbal post cath instructions went over with the patient. He understood well. Call light in reach. Informed to call for needs. Vitals and assessments per flowsheet.
--- NOTE | 2024-08-17 12:47 | SUR.PHASEI ---
IV FLUIDS IV fluids set at 100 ml/hr post cath as per verbal order from DR Christopher.
--- NOTE | 2024-08-17 15:21 | PC.NURSE ---
Patient transferred to CSU from clinical laboratory medical director with a right radial TR-Band at 1515.
[2024-08-17 17:12] LABS: Glucose Point of Care 172 mg/dL (70-110)
--- NOTE | 2024-08-17 19:21 | PC.NURSE ---
Patient's right radial TR-band is removed. Air is removed slowly 2ml's at a time. A dressing of 2x2 and tegaderm is applied. Patient is reeducated to not use his right hand/wrist for the next 24 hours. Patient wrote understanding.
[2024-08-17] MEDS: atorvastatin 40 mg Tablet PO (20:06)
[2024-08-17 20:52] LABS: Glucose Point of Care 141 mg/dL (70-110)
[2024-08-18 04:13] VITALS: BP 110/64; PULSE 68; RESP 15; O2SAT 95
[2024-08-18 05:34] LABS: Basophils # 0.1 10^3/uL (0.0-0.1); Basophils % 0.7 %; Eosinophils # 0.3 10^3/uL (0.0-0.8); Eosinophils % 2.8 %; Hematocrit 42.3 % (37-53); Lymphocytes # 2.3 10^3/uL (0.8-4.8); Lymphocytes % 22.8 %; Mean Corpuscular HGB Conc 33.1 g/dL (30-55); Mean Corpuscular Hemoglobin 29.2 pg (27-33); Mean Corpuscular Volume 88.1 fl (82-101); Mean Platelet Volume 10.2 fL (7.4-10.4); Monocytes # 0.9 10^3/uL (0.2-0.9); Monocytes % 9.1 %; Neutrophils # 6.33 10^3/uL (1.8-7.7); Neutrophils % 64.1 %; Nucleated Red Blood Cells % 0 %; Platelet Count 176 10^3/cmm (157-399); Red Cell Distribution Width 12.7 % (12.1-15.1); White Blood Count 9.88 10^3/uL (3.29-11.43)
[2024-08-18 06:00] VITALS: PULSE 66
[2024-08-18 06:01] LABS: Anion Gap 14.2 (5-19); Blood Urea Nitrogen 16 mg/dL (6-20); Calcium 8.3 mg/dL (8.5-10.5); Carbon Dioxide 27 mmol/L (22-29); Chloride 102 mmol/L (98-107); Glomerular Filtration Rate 117.5 mL/min (90-130); Glucose 111 mg/dL (65-115); Osmolality Calculated 290 mOsm/kg (285-295); Potassium 4.2 mmol/L (3.5-5.1); Sodium 139 mmol/L (136-145)
[2024-08-18 06:25] LABS: Glucose Point of Care 111 mg/dL (70-110)
[2024-08-18 08:17] VITALS: BP 134/73; PULSE 70; RESP 12; TEMP 36.6; O2SAT 96
[2024-08-18] MEDS: aspirin 81 mg EC Tablet PO (08:44)
[2024-08-18] MEDS: clopidogrel 75 mg Tablet PO (08:44)
--- NOTE | 2024-08-18 09:34 | USCV_ITS ---
Cristian Kowalski Age: 53 Gender: M : 1970 Exam Date: 08/18/2024 10:59 Ordering Phys: Stephanie Samson NP Technologist: Luis Daniel Steve [place] [facility] [place]: nstemi BP: 134 / 73 HR: 72 Rhythm: Sinus Technical Quality: Adequate MEASUREMENTS (Male / Female) Normal Values 2D ECHO LV Diastolic Diameter PLAX 5.4 cm 4.2 - 5.9 / 3.9 - 5.3 cm IVS Diastolic Thickness 1.2 cm 0.6 - 1.0 / 0.6 - 0.9 cm IVS Systolic Thickness 1.6 cm LVPW Diastolic Thickness 1.5 cm 0.6 - 1.0 / 0.6 - 0.9 cm LVPW Systolic Thickness 2.1 cm LVOT Diameter 2.0 cm LV Ejection Fraction 2D Teich 59.1 % LV Ejection Fraction MOD 4C 62.7 % LV Ejection Fraction MOD 2C 60.9 % LV Ejection Fraction 2C AL 61.7 % LA Diameter 3.0 cm RA Systolic Volume 4C AL 42.4 ml RA Systolic Volume 4C MOD 41.2 ml LA Sys Volume AL 49.1 cm cubed LA Sys Volume Index AL 20.8 cm cubed/m squared Aorta at Sinotubular Diameter 2.8 cm IVC Diameter 1.7 cm M-MODE LA Ao Ratio MM 1.2 AV Cusp Separation MM 1.3 cm DOPPLER AV Peak Velocity 127.7 cm/s LVOT Peak Velocity 107.0 cm/s AV Area Cont Eq vti 3.4 cm squared AV Area Cont Eq pk 2.7 cm squared MV Peak Velocity 96.0 cm/s MV Area PHT 5.2 cm squared Mitral E to A Ratio 0.9 TV Peak Velocity 266.0 cm/s TR Peak Velocity 281.0 cm/s TR Peak Gradient 31.6 mmHg TR Mean Velocity 240.0 cm/s TR Mean Gradient 24.7 mmHg TR Velocity Time Integral 67.9 cm PV Peak Velocity 118.0 cm/s RV Ejection Time 0.3 s FINDINGS Left Ventricle Normal left ventricular size, systolic function and wall thickness, with no regional wall motion abnormalities. Left ventricular ejection fraction is estimated at 60 %. Grade I/IV diastolic dysfunction (abnormal relaxation filling pattern), normal to mildly elevated filling pressures. Right Ventricle The right ventricle is normal in size and function. Right Atrium The right atrium is normal in size. Left Atrium The left atrium is normal in size. Mitral Valve Mildly thickened mitral valve. No mitral valve stenosis. Mild mitral valve regurgitation. Aortic Valve Mild aortic valve calcification. No aortic valve stenosis. Trace aortic valve regurgitation. Tricuspid Valve Structurally normal tricuspid valve without significant stenosis or regurgitation. Pulmonic Valve Structurally normal pulmonic valve without significant stenosis. There is no pulmonic regurgitation. Pericardium Normal pericardium without effusion. Aorta Normal ascending aorta dimension. IVC The inferior vena cava appears normal. CONCLUSIONS Normal left ventricular size, systolic function and wall thickness, with no regional wall motion abnormalities. Left ventricular ejection fraction is estimated at 60 %. Grade I/IV diastolic dysfunction (abnormal relaxation filling pattern), normal to mildly elevated filling pressures. There is no pericardial effusion. No significant valve abnormalities. Right atrial pressure is around 5 mm of mercury. Deon Christopher MD (Electronically Signed) Final Date: 19 August 2024 19:49 S
[2024-08-18 11:30] LABS: Glucose Point of Care 174 mg/dL (70-110)
[2024-08-18 12:21] VITALS: BP 137/76; PULSE 72; RESP 15; TEMP 36.6; O2SAT 96
--- NOTE | 2024-08-18 13:12 | P.DS_ITS ---
<Statement entered by Deon Christopher MD - 08/18/24 19:06> Patient was evaluated and cared for in conjunction with an advanced practice practitioner. I personally examined the patient and reviewed the chart and all pertinent data including imaging, telemetry, and laboratory results. I discussed the patient in detail with the advanced practice practitioner. Please see their note for complete H&P testing result and agreed upon plan of care for the patient. Patient denies any complaint. All conversation was performed with the patient in writing in order for comprehension GENERAL: Patient is alert, awake and oriented x3. HEART: Regular S1 and S2. No murmur, rub or gallop. LUNGS: Clear to auscultate bilaterally. CENTRAL NERVOUS SYSTEM: Grossly nonfocal. EXTREMITIES: Lower extremities with out edema bilaterally. Assessment and plan Coronary artery disease status post drug-eluting stent to mid LAD and mid to distal RCA for abnormal stress test Hypertension Hyperlipidemia Continue dual antiplatelet therapy statin beta-katharina. Patient has been explained in detail necessity of using dual antiplatelet therapy for at least 1 year preferably 2. Patient has been advised to follow-up in the clinic Discharge Providers Date of Admission: 08/17/2024 Date of Discharge: August 18, 2024 Attending Provider at Admission: Dr. Christopher Attending Provider at Discharge: Deon Christopher MD Primary Care Provider: Braulio Hollins MD Reason for Visit Reason for Visit: I20.0 Brief History: This is a 53-year-old male with hearing deficiency was seen by Dr. Christopher in the clinic on 03 August 2024. Patient was complaining of worsening of chest pain along with shortness of breath. Stress test was performed which showed ischemia in LAD and RCA territory patient never had any angiogram or invasive test before. He was started on guideline medical therapy for ischemia. Since he continues to have chest pressure and because of fact stress test was abnormal we decided to bring patient to the [facility]. Informed consent was obtained all risk-benefit and alternative for the procedure including 2% risk of stroke major bleed urgent emergent bypass surgery vascular surgery contrast induced nephropathy hematoma were discussed with the patient he would like to proceed Hospital Course Hospital Course Status post balloon angioplasty followed by PCI postdilated with noncompliant balloon to mid LAD with excellent angiographic result and mormon of MARINO-3 flow. Status post balloon angioplasty and 2 overlapping stent placement in mid and distal RCA postdilated noncompliant balloon. Excellent angiographic result with MARINO-3 flow was noted. Patient tolerated procedure well w/o complications. Post cath echo preliminary showed good ejection fraction. Physical Exam Narrative: General: No apparent distress, healthy appearing, well nourished HENMT: chronic hearing deficit noted Muskuloskeletal: Full ROM Lymphatic: no lymphedema noted Respiratory: Normal respiratory effort, clear to auscultation bilaterally throughout all lung patrick, no use of accessory muscles Cardio: No JVD, regular rate, regular rhythm, S1 S2 normal, no murmurs, pe ripheral pulses 2+ radial palpated bilatearlly GI: Normal to inspection, nondistended Extremities: Full ROM, normal, normal capillary refill, no cyanosis or edema Neuro: Alert and oriented x4, no focal motor deficits Psych: Affect normal, denies suicidal ideation, mental status grossly normal Skin: right wrist cath site clean, dry, intact no s/s of hematoma, no bruising, full function Discharge Data Studies Completed and Pending Pending at discharge Category Date Time Status 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 echo complete* [id number] Routine Ultrasound 08/18/24 09:34 Taken Laboratory Results WBC 9.88 10^3/uL (3.29-11.43) 08/18/24 04:39 RBC 4.80 10^6/uL (3.85-5.65) 08/18/24 04:39 Hgb 14.00 g/dL (11.27-16.99) 08/18/24 04:39 Hct 42.3 % (37-53) 08/18/24 04:39 MCV 88.1 fl (82-101) 08/18/24 04:39 MCH 29.2 pg (27-33) 08/18/24 04:39 MCHC 33.1 g/dL (30-55) 08/18/24 04:39 RDW 12.7 % (12.1-15.1) 08/18/24 04:39 Plt Count 176 10^3/cmm (157-399) 08/18/24 04:39 MPV 10.2 fL (7.4-10.4) 08/18/24 04:39 Neut % (Auto) 64.1 % 08/18/24 04:39 Lymph % (Auto) 22.8 % 08/18/24 04:39 [place] % (Auto) 9.1 % 08/18/24 04:39 Eos % (Auto) 2.8 % 08/18/24 04:39 Baso % (Auto) 0.7 % 08/18/24 04:39 Neut # (Auto) 6.33 10^3/uL (1.8-7.7) 08/18/24 04:39 Lymph # (Auto) 2.3 10^3/uL (0.8-4.8) 08/18/24 04:39 [place] # (Auto) 0.9 10^3/uL (0.2-0.9) 08/18/24 04:39 Eos # (Auto) 0.3 10^3/uL (0.0-0.8) 08/18/24 04:39 Baso # (Auto) 0.1 10^3/uL (0.0-0.1) 08/18/24 04:39 Nucleated RBC % (auto) 0 % 08/18/24 04:39 Nucleated RBCs # 0.0 /100WBC 08/18/24 04:39 Sodium 139 mmol/L (136-145) 08/18/24 04:39 Potassium 4.2 mmol/L (3.5-5.1) 08/18/24 04:39 Chloride 102 mmol/L (98-107) 08/18/24 04:39 Carbon Dioxide 27 mmol/L (22-29) 08/18/24 04:39 Anion Gap 14.2 (5-19) 08/18/24 04:39 BUN 16 mg/dL (6-20) 08/18/24 04:39 Creatinine 0.7 mg/dL (0.7-1.2) 08/18/24 04:39 GFR Calculation 117.5 mL/min (90-130) 08/18/24 04:39 Glucose 111 mg/dL (65-115) 08/18/24 04:39 POC Glucose 174 mg/dL (70-110) H 08/18/24 11:05 Calculated Osmolality 290 mOsm/kg (285-295) 08/18/24 04:39 Calcium 8.3 mg/dL (8.5-10.5) L 08/18/24 04:39 Procedures Performed Status post balloon angioplasty followed by PCI postdilated with noncompliant balloon to mid LAD with excellent angiographic result and mormon of MARINO-3 flow. Status post balloon angioplasty and 2 overlapping stent placement in mid and distal RCA postdilated noncompliant balloon. Excellent angiographic result with MARINO-3 flow was noted. Vitals Last Vital Signs Temp 97.8 F 08/18/24 12:21 Pulse 72 08/18/24 12:21 Resp 15 08/18/24 12:21 BP 137/76 08/18/24 12:21 Pulse Ox 96 08/18/24 12:21 O2 Del Method Room Air 08/18/24 12:21 Discharge Plan Discharge Patient Disposition: Home Prescriptions: New clopidogrel [Plavix] 75 mg tablet 75 mg PO DAILY Qty: 90 3RF aspirin 81 mg capsule 81 mg PO DAILY 90 Days Qty: 90 3RF atorvastatin [Lipitor] 80 mg tablet 80 mg PO DAILY 30 Days Qty: 30 0RF Continued albuterol sulfate 90 mcg/actuation HFA aerosol inhaler 2 puff inhalation Q6H PRN (Reason: shortness of breath or wheezing) Qty: 8.5 5RF (DME) lancets Misc See Rx Instructions .MEDSUPPLY Qty: 200 12RF Rx Instructions: Use as directed to prick skin for blood sugar checks fluticasone propionate 110 mcg/actuation HFA aerosol inhaler 1 puff inhalation BID Qty: 12 11RF glipizide 10 mg tablet 10 mg PO DAILY Qty: 90 3RF hydrocodone-acetaminophen 5-325 mg tablet 1 tab PO Q6H PRN (Reason: pain) 5 Days Qty: 10 0RF Naprosyn 500 mg tablet 500 mg PO BID PRN (Reason: pain) Qty: 20 0RF Januvia 100 mg tablet 100 mg PO DAILY Qty: 90 3RF olmesartan 20 mg tablet 20 mg PO DAILY Qty: 90 3RF (DME) Dexcom G6 Sensor Device See Rx Instructions .ROUTE .MEDSUPPLY Qty: 3 6RF Rx Instructions: As directed (DME) Dexcom G6 Digital Court Reporter Misc See Rx Instructions .ROUTE .MEDSUPPLY Qty: 1 0RF Rx Instructions: As directed (DME) Dexcom G6 Transmitter Device See Rx Instructions .ROUTE .MEDSUPPLY Qty: 1 2RF Rx Instructions: As directed (DME) pen needle, diabetic [TechLITE Pen Needle] 31 gauge x 3/16 needle See Rx Instructions .ROUTE .MEDSUPPLY Qty: 100 5RF Rx Instructions: As directed nitroglycerin 0.4 mg tablet, sublingual 0.4 mg sublingual Q5M PRN (Reason: chest pain) Qty: 25 2RF Rx Instructions: do not exceed 3 doses per episode metoprolol succinate 25 mg tablet extended release 24 hr 12.5 mg PO DAILY Qty: 90 3RF alcohol swabs Pads, Medicated 1 pad topical DIRECTED Qty: 200 12RF Rx Instructions: Use as directed to clean skin prior to finger stick or medication injection (DME) OneTouch Verio test strips Strip See Rx Instructions .ROUTE .MEDSUPPLY Qty: 100 3RF Rx Instructions: As directed (DME) Blood Glucose Test Strip See Rx Instructions .MEDSUPPLY Qty: 200 12RF Rx Instructions: Use TID as directed with glucometer to check blood sugar (DME) 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 meter Misc See Rx Instructions .MEDSUPPLY Qty: 1 0RF Rx Instructions: Use as directed for checking blood sugar (DME) FreeStyle Surekha 2 Sensor Kit See Rx Instructions .ROUTE .MEDSUPPLY Qty: 1 6RF Rx Instructions: As directed (DME) FreeStyle Surekha 2 [place] Misc See Rx Instructions .ROUTE .MEDSUPPLY Qty: 1 2RF Rx Instructions: As directed cholecalciferol (vitamin D3) 50 mcg (2,000 unit) capsule 50 mcg PO DAILY Qty: 30 6RF insulin glargine [Lantus Solostar U-100 Insulin] 100 unit/mL (3 mL) insulin pen 15 unit SUBCUT BID Qty: 15 11RF (DME) Diabetic shoes See Rx Instructions .Route .MEDSUPPLY Qty: 2 2RF Rx Instructions: As directed Held metformin 1,000 mg tablet 1,000 mg PO BID Qty: 180 3RF Hold Instructions: Resume on 08/21/24. Discontinued atorvastatin 40 mg tablet 40 mg PO DAILY Qty: 30 6RF Discharge Orders: Discharge Order (Routine); Ordered 08/18/24 Ordered By: Stephanie Samson Referrals: Noy Moreno FNP [Nurse Practitioner] - 7-10 days (We have notified your physician's clinic of the need for a follow-up appointment to be scheduled. If you have not heard from them within the next 2 business days, please call them directly. ) Diet: Advance as tolerated and Diabetic Activity: Resume usual activity Patient Instructions: Aspirin (By mouth), Atorvastatin (By mouth), Clopidogrel (By mouth) (Plavix), Coronary Angioplasty (DC), Post Angiogram Home Care Instructions Activity Restrictions/Additional Instructions: Discussed with patient no heavy lifting more than a gallon of milk. No driving for 3 days. Monitor for and report signs or symptoms of bleeding. Monitor for and report s/s of infection such as fever 101 or greater, swelling, redness or pain to the wrist. Continue dual antiplatelet therapy for 1 year will increase statin to 80 mg as previous LDL was above 100 follow-up with the clinic in 1 week for site check as well as labs Print Language: Moldovan Discharge Attestations Time Spent in Discharge Care*: less than 30 min Quality Metrics Clinical Quality Measures [ No reported AMI, CVA or VTE this stay] Coding Level of Care Code Acute Code for Eugenio Fwchandni
--- NOTE | 2024-08-18 14:20 | PC.NURSE ---
Patient is educated about his discharge paperwork, writing back and forth. Patient writes understanding about his discharge paperwork. Patient is wheeled out of the hospital and SMT picked him up to take him home.
== END 2024-08-18 14:17 | disposition home or self-care (01) ==
LOC: CCL 07:16 → CSU 20:34
PROVIDERS: PCP Family Medicine; Visit Provider Internal Medicine Cardiovascular Disease
DX: I25.110 Atherosclerotic heart disease of native coronary artery with unstable angina pectoris (principal); I25.84 Coronary atherosclerosis due to calcified coronary lesion; I10 Essential (primary) hypertension; E66.9 Obesity, unspecified; Z68.37 Body mass index [BMI] 37.0-37.9, adult; Z87.891 Personal history of nicotine dependence; E11.9 Type 2 diabetes mellitus without complications
CPT/HCPCS: 36415; 36416; 80048; 82962; 85025; 85347; 93306; 93458; 96374; 96375; 96376; 99152; 99153; C1725; C1769; C1874; C1887; C1894; C9600; C9601; J1644; J2250; J3010; J3490; J7030; Q0163; Q9967

== ENCOUNTER 2024-09-01 09:10 | Emergency (ER) | payer MEDICARE, MEDICAID, SELFPAY ==
[2024-09-01 09:27] VITALS: BP 110/66; PULSE 80; RESP 18; TEMP 36.6; O2SAT 98
--- NOTE | 2024-09-01 09:35 | PC.PHAR ---
trace koch [employer]DER - changed atorvastatin dosage to 80mg daily
--- NOTE | 2024-09-01 11:25 | W.ED.EYEPROB ---
HPI - Eye Problem General: Chief complaint: Eye Problems Stated complaint: eyes painful,crusty Time Seen by Provider: 09/01/24 09:39 Source: patient Mode of arrival: ambulatory Limitations: language barrier History of Present Illness: Patient is a 53-year-old male here for bilateral eye redness, crusting, discharge. Patient is deaf and communicates via writing board. He tells me he began noticing drainage from the right eye approximately 3 days ago. He states yesterday he began having drainage from the left eye. He states his eyes are matted in the morning. He states they are red and uncomfortable. No foreign body sensations. No injury or trauma. No visual loss. No severe headache or fevers. He arrives in no acute distress with stable vital signs. He does wear reading glasses. No contacts. chief complaint: eye redness and other (eye discharge) Onset (ago): day(s) Onset description: gradual Duration: constant Location: both eyes Eye Symptoms: burning, redness and discharge Place: home Mechanism: none Severity: moderate Associated symptoms: Reports no associated symptoms; Denies fever(s), headache(s), nausea, neck pain or vomiting Treatments Prior to Arrival: none Related Data Home Medications ?Medication ?Instructions ?Recorded ?Confirmed insulin glargine 100 unit/mL (3 11 unit SUBCUT BID 09/01/24 09/01/24 mL) subcutaneous pen (Lantus Solostar U-100 Insulin) Previous Rx's ?Medication ?Instructions ?Recorded albuterol sulfate 90 mcg/actuation 2 puff inhalation Q6H PRN 03/10/23 aerosol inhaler shortness of breath or wheezing #8.5 grams fluticasone propionate 110 1 puff inhalation BID #12 grams 05/10/24 mcg/actuation HFA aerosol inhaler glipizide 10 mg tablet 10 mg PO DAILY #90 tabs 05/10/24 metformin 1,000 mg tablet 1,000 mg PO BID #180 tabs 05/10/24 Held on 08/18/24. Instructions: Resume on 08/21/24. olmesartan 20 mg tablet 20 mg PO DAILY #90 tabs 05/10/24 sitagliptin phosphate 100 mg 100 mg PO DAILY #90 tabs 05/10/24 tablet (Januvia) cholecalciferol (vitamin D3) 50 50 mcg PO DAILY #30 caps 06/05/24 mcg (2,000 unit) capsule metoprolol succinate 25 mg 12.5 mg (1/2 x 25 mg) PO DAILY #90 08/03/24 tablet,extended release 24 hr tabs nitroglycerin 0.4 mg sublingual 0.4 mg sublingual Q5M PRN chest 08/03/24 tablet pain #25 tabs aspirin 81 mg capsule 81 mg PO DAILY 90 days #90 caps 08/18/24 atorvastatin 80 mg tablet (Lipitor) 80 mg PO DAILY 30 days #30 tabs 08/18/24 clopidogrel 75 mg tablet (Plavix) 75 mg PO DAILY #90 tabs 08/18/24 polymyxin B sulfate 10,000 1 drp ophthalmic (eye) Q3H 7 days 09/01/24 unit-trimethoprim 1 mg/mL eye drops #10 mL Allergies Allergy/AdvReac Type Severity Reaction Status Date / Time No Known Allergies Allergy Verified 08/17/24 08:34 Review of Systems Const: Denies: fever(s), chills, body aches, fatigue or malaise Eyes: Reports: eye discomfort, eye discharge and eye redness; Denies: change in vision, floaters or seeing flashes ENMT: Denies: throat pain, odynophagia, nasal discharge, nasal congestion or sinus pain GI: Denies: nausea or vomiting Musc: Denies: neck pain Skin/Breast: Denies: rash Neuro: Denies: headache(s) [facility] PFSH: Medical History Muteness Bilateral hearing loss Generalized anxiety disorder Mild intermittent asthma Essential hypertension Type 2 diabetes mellitus without complications Surgical History Hx of tonsillectomy 2004 History of cochlear implant lost his device. follows with someone in [facility]. History of surgical procedure on mouth reports history of tongue surgery Family History Mother , etoh Diabetes Social History Smoking and tobacco/nicotine status: former use of tobacco/nicotine Quit status (tobacco/nicotine): has quit using Year quit tobacco: 1998 Former quit date comment: 03/1999 Alcohol intake: former Year of sobriety/quit date alcohol: 2021 Former alcohol use details: He quit 2 years after his mom Substance/Drug Use: never Additional social history: living in homeless nursing home Marital status: Single Highest education level completed: 12th Grade, No Diploma Current occupational status: disabled Physical Exam Const: COMMON NORMALS: no acute distress, average body habitus, no limitations, healthy appearing, alert and well nourished GENERAL APPEARANCE: cooperative HENMT: COMMON NORMALS: normocephalic, atraumatic, external ears normal and Normal external nose present HEAD & SCALP: normal to inspection, normocephalic and atraumatic FACE & SINUS: normal facial exam, sinuses nontender and face symmetric NOSE: Normal external nose present EXTERNAL EAR: Yes external ears normal MOUTH: Normal oral and palatal mucosa present and lip normal THROAT: posterior oropharynx normal and tonsils normal Eye: COMMON NORMALS: Equal, round and reactive pupils present, EOMs intact bilaterally and no scleral icterus GENERAL EYE: normal light reflex VISUAL ACUITY: Yes acuity normal CONJUNCTIVA: Yes conjunctival abnormal positive bilateral conjunctival injection and discharge purulent SCLERA: sclerae normal CORNEA: Yes corneas normal PUPIL: Yes Equal, round and reactive pupils present DIRECT OPHTHALMOSCOPY: Yes normal light reflex OTHER: bilateral purulent discharge/crusting Neck/C-Spine: COMMON NORMALS: full ROM and no meningeal signs Extremity: GENERAL: Yes normal exam except as noted Neuro: COMMON NORMALS: CN's II-XII intact bilaterally SENSORIUM/ORIENTATION: Yes alert MENINGEAL SIGNS: Yes no meningeal signs Skin: COMMON NORMALS: no rashes or lesions noted GENERAL SKIN EXAM: no rashes or lesions noted Course Vital Signs: Vital signs: Vital Signs Temperature 97.8 F 09/01/24 09:27 Pulse Rate 80 09/01/24 09:27 Respiratory Rate 18 09/01/24 09:27 Blood Pressure 110/66 09/01/24 09:27 Pulse Oximetry 98 09/01/24 09:27 Oxygen Delivery Me thod Room Air 09/01/24 09:27 MDM - Eye Problem Medical Decision Making Patient will be treated for bacterial conjunctivitis. Return to ED precautions discussed. Otherwise he can follow-up with primary care if symptoms or not improving. Differential Diagnosis Likely conjunctivitis Medical Records I reviewed the patient's medical records. No radiology studies performed this visit Discharge Plan Discharge Patient Disposition: Home Clinical Impression: Bacterial conjunctivitis Condition: Stable Prescriptions: New polymyxin B sulf-trimethoprim 10,000 unit- 1 mg/mL drops 1 drp ophthalmic (eye) Q3H 7 Days Qty: 10 0RF Rx Instructions: while awake; do not exceed 6 doses in 24 hours No Action albuterol sulfate 90 mcg/actuation HFA aerosol inhaler 2 puff inhalation Q6H PRN (Reason: shortness of breath or wheezing) Qty: 8.5 5RF fluticasone propionate 110 mcg/actuation HFA aerosol inhaler 1 puff inhalation BID Qty: 12 11RF glipizide 10 mg tablet 10 mg PO DAILY Qty: 90 3RF metformin 1,000 mg tablet 1,000 mg PO BID Qty: 180 3RF Januvia 100 mg tablet 100 mg PO DAILY Qty: 90 3RF olmesartan 20 mg tablet 20 mg PO DAILY Qty: 90 3RF nitroglycerin 0.4 mg tablet, sublingual 0.4 mg sublingual Q5M PRN (Reason: chest pain) Qty: 25 2RF Rx Instructions: do not exceed 3 doses per episode metoprolol succinate 25 mg tablet extended release 24 hr 12.5 mg PO DAILY Qty: 90 3RF cholecalciferol (vitamin D3) 50 mcg (2,000 unit) capsule 50 mcg PO DAILY Qty: 30 6RF clopidogrel [Plavix] 75 mg tablet 75 mg PO DAILY Qty: 90 3RF aspirin 81 mg capsule 81 mg PO DAILY 90 Days Qty: 90 3RF atorvastatin [Lipitor] 80 mg tablet 80 mg PO DAILY 30 Days Qty: 30 0RF insulin glargine [Lantus Solostar U-100 Insulin] 100 unit/mL (3 mL) insulin pen 11 unit SUBCUT BID Discharge Orders: Discharge ED (Routine); Ordered 09/01/24 Ordered By: Stephanie Goodrich Referrals: Braulio Hollins MD [Primary Care Provider] - Patient Instructions: Conjunctivitis (ED) Activity Restrictions/Additional Instructions: Apply antibiotic drops in both eyes as prescribed over the next week. You need to follow-up with your primary care provider if symptoms do not improve over the next 3 to 4 days. You need to return to the emergency department for worsening pain, visual loss, fevers, severe headache, or any other concerns you may have. Print Language: Icelandic Coding Level of Care Code ED Family Law Attorney for Chg Fwd
== END 2024-09-01 11:57 | disposition home or self-care (01) ==
PROVIDERS: Emergency Provider Physician Assistant; PCP Family Medicine
DX: H10.89 Other conjunctivitis (principal); Z79.82 Long term (current) use of aspirin; Z79.4 Long term (current) use of insulin; Z79.84 Long term (current) use of oral hypoglycemic drugs; Z87.891 Personal history of nicotine dependence; E11.9 Type 2 diabetes mellitus without complications; I10 Essential (primary) hypertension
CPT/HCPCS: 99283

== ENCOUNTER 2024-11-04 13:38 | Emergency (ER) | payer MEDICARE, MEDICAID, SELFPAY ==
[2024-11-04 13:39] VITALS: BP 140/86; PULSE 74; RESP 16; TEMP 36.5; O2SAT 98
--- NOTE | 2024-11-04 14:24 | W.ED.CHESTPA ---
HPI - Chest Pain General: Chief Complaint: Chest Pain Stated Complaint: chest pain Time Seen by Provider: 11/04/24 13:44 History of Present Illness: 54-year-old male presents to the emergency room with complaint of right-sided chest pain. Goes into his back. Patient is deaf and mute is unable to communicate except by writing we communicated via writing for his history. Pain does not radiate into his neck or arms he has been somewhat short of breath more because it is painful to take a deep breath. He denies any fever sweats chills does have a little bit of dysuria denies abdominal pain has known history of coronary artery disease although this feels different than when he had his heart attack Associated symptoms: Deny abdominal pain, dyspnea or fever(s) Related Data Home Medications ?Medication ?Instructions ?Recorded ?Confirmed atorvastatin 80 mg tablet 80 mg PO DAILY 11/04/24 11/04/24 insulin glargine 100 unit/mL (3 15 unit SUBCUT BID 11/04/24 11/04/24 mL) subcutaneous pen (Lantus Solostar U-100 Insulin) metformin 1,000 mg tablet 1,000 mg PO BID 11/04/24 11/04/24 naproxen 500 mg tablet 500 mg PO BID PRN Pain 11/04/24 11/04/24 Previous Rx's ?Medication ?Instructions ?Recorded fluticasone propionate 110 1 puff inhalation BID #12 grams 05/10/24 mcg/actuation HFA aerosol inhaler glipizide 10 mg tablet 10 mg PO DAILY #90 tabs 05/10/24 olmesartan 20 mg tablet 20 mg PO DAILY #90 tabs 05/10/24 sitagliptin phosphate 100 mg 100 mg PO DAILY #90 tabs 05/10/24 tablet (Januvia) cholecalciferol (vitamin D3) 50 50 mcg PO DAILY #30 caps 06/05/24 mcg (2,000 unit) capsule metoprolol succinate 25 mg 12.5 mg (1/2 x 25 mg) PO DAILY #90 08/03/24 tablet,extended release 24 hr tabs nitroglycerin 0.4 mg sublingual 0.4 mg sublingual Q5M PRN chest 08/03/24 tablet pain #25 tabs aspirin 81 mg capsule 81 mg PO DAILY 90 days #90 caps 08/18/24 clopidogrel 75 mg tablet (Plavix) 75 mg PO DAILY #90 tabs 08/18/24 flash glucose sensor (FreeStyle #2 ea 10/04/24 Surekha 2 Sensor kit) diclofenac sodium 75 mg 75 mg PO Q12H PRN pain #20 tabs 11/04/24 tablet,delayed release Allergies Allergy/AdvReac Type Severity Reaction Status Date / Time No Known Allergies Allergy Verified 08/17/24 08:34 Review of Systems Const: Denies: fever(s) or chills Card: Reports: chest pain and dyspnea on exertion; Denies: swelling of feet/ankles Resp: Denies: dyspnea GI: Denies: abdominal pain : Reports: dysuria; Denies: urinary frequency or urinary urgency Skin/Breast: Denies: rash PFSH ED PFSH: Medical History Muteness Bilateral hearing loss Generalized anxiety disorder Mild intermittent asthma Essential hypertension Type 2 diabetes mellitus without complications Surgical History Hx of tonsillectomy 2004 History of cochlear implant lost his device. follows with someone in [facility]. History of surgical procedure on mouth reports history of tongue surgery Family History Mother , etoh Diabetes Social History Smoking and tobacco/nicotine status: former use of tobacco/nicotine Quit status (tobacco/nicotine): has quit using Year quit tobacco: 1998 Former quit date comment: 03/1999 Alcohol intake: former Year of sobriety/quit date alcohol: 2021 Former alcohol use details: He quit 2 years after his mom Substance/Drug Use: never Additional social history: living in homeless jail Marital status: Single Highest education level completed: 12th Grade, No Diploma Current occupational status: disabled Physical Exam Const: GENERAL APPEARANCE: cooperative ORIENTATION/CONSCIOUSNESS: Yes awake HENMT: COMMON NORMALS: normocephalic, atraumatic and hearing grossly normal bilaterally HEAD & SCALP: normocephalic and atraumatic Resp: COMMON NORMALS: normal respiratory effort, No retractions, No use of accessory muscles and clear to auscultation bilaterally AUSCULTATION: clear to auscultation bilaterally Cardio: COMMON NORMALS: regular rate, regular rhythm and No murmurs present (Cardio) RATE: regular rate RHYTHM: regular rhythm GI: COMMON NORMALS: Soft to palpation and No hepatosplenomegaly present AUSCULTATION: Yes normoactive bowel sounds PALPATION: Yes Soft to palpation, No Tenderness to palpation present (GI), No Guarding due to palpation present (GI) and Yes No hepatosplenomegaly present Extremity: COMMON NORMALS: normal to inspection, capillary refill normal, no clubbing, cyanosis or edema, no calf tenderness and no pedal edema Skin: COMMON NORMALS: no rashes or lesions noted GENERAL SKIN EXAM: no rashes or lesions noted Course Vital Signs: Vital signs: Vital Signs Temperature 97.7 F 11/04/24 13:39 Pulse Rate 68 11/04/24 15:23 Respiratory Rate 16 11/04/24 13:39 Blood Pressure 124/80 11/04/24 15:23 Pulse Oximetry 98 11/04/24 15:23 Oxygen Delivery Me thod Room Air 11/04/24 15:23 MDM - Chest Pain Medical Decision Making Chest x-ray EKG troponins all unremarkable. Description of the pain seems more musculoskeletal start him on anti-inflammatory return if he has further problems Medical Records I reviewed the patient's medical records. Lab Data I reviewed the patient's lab results. 11/04/24 13:55 11/04/24 13:55 Radiology Impressions Chest X-Ray 11/04/24 14:37 IMPRESSION: No acute cardiopulmonary process. Laboratory Results WBC 5.90 10^3/uL (3.29-11.43) 11/04/24 13:55 RBC 4.76 10^6/uL (3.85-5.65) 11/04/24 13:55 Hgb 13.90 g/dL (11.27-16.99) 11/04/24 13:55 Hct 42.3 % (37-53) 11/04/24 13:55 MCV 88.9 fl (82-101) 11/04/24 13:55 MCH 29.2 pg (27-33) 11/04/24 13:55 MCHC 32.9 g/dL (30-55) 11/04/24 13:55 RDW 12.8 % (12.1-15.1) 11/04/24 13:55 Plt Count 229 10^3/cmm (157-399) 11/04/24 13:55 MPV 10.1 fL (7.4-10.4) 11/04/24 13:55 Neut % (Auto) 58.2 % 11/04/24 13:55 Lymph % (Auto) 28.3 % 11/04/24 13:55 [place] % (Auto) 10.0 % 11/04/24 13:55 Eos % (Auto) 2.4 % 11/04/24 13:55 Baso % (Auto) 0.8 % 11/04/24 13:55 Neut # (Auto) 3.43 10^3/uL (1.8-7.7) 11/04/24 13:55 Lymph # (Auto) 1.7 10^3/uL (0.8-4.8) 11/04/24 13:55 [place] # (Auto) 0.6 10^3/uL (0.2-0.9) 11/04/24 13:55 Eos # (Auto) 0.1 10^3/uL (0.0-0.8) 11/04/24 13:55 Baso # (Auto) 0.1 10^3/uL (0.0-0.1) 11/04/24 13:55 Nucleated RBC % (auto) 0 % 11/04/24 13:55 Nucleated RBCs # 0.0 /100WBC 11/04/24 13:55 Sodium 137 mmol/L (136-145) 11/04/24 13:55 Potassium 4.1 mmol/L (3.5-5.1) 11/04/24 13:55 Chloride 102 mmol/L (98-107) 11/04/24 13:55 Carbon Dioxide 26 mmol/L (22-29) 11/04/24 13:55 Anion Gap 13.1 (5-19) 11/04/24 13:55 BUN 10 mg/dL (6-20) 11/04/24 13:55 Creatinine 0.6 mg/dL (0.7-1.2) L 11/04/24 13:55 GFR Calculation 139.9 mL/min (90-130) H 11/04/24 13:55 Glucose 260 mg/dL (65-115) H 11/04/24 13:55 Calculated Osmolality 292 mOsm/kg (285-295) 11/04/24 13:55 Calcium 8.2 mg/dL (8.5-10.5) L 11/04/24 13:55 Total Bilirubin 0.5 mg/dL (0.15-1.2) 11/04/24 13:55 AST 20 U/L (0-40) 11/04/24 13:55 ALT 25 U/L (0-41) 11/04/24 13:55 Alkaline Phosphatase 74 U/L (40-130) 11/04/24 13:55 Troponin T Baseline 23 ng/L (0-15) H 11/04/24 13:55 Troponin T 120 Minute 20.28 ng/L (0-15) H 11/04/24 15:41 Delta Troponin T -2.72 ABS# (0-10) L 11/04/24 15:41 Total Protein 5.9 g/dL (6.6-8.7) L 11/04/24 13:55 Albumin 3.8 g/dL (3.5-5.2) 11/04/24 13:55 Globulin 2.1 g/dL (1.3-4.6) 11/04/24 13:55 All radiology interpretation(s) finalized by discharge EKG Data EKG 1: Interpretation: EKG 11/04/2024 1340 sinus rhythm no acute ST changes noted. Rate 73 DC interval 151 EKG 2: Interpretation: EKG 11/04/2024 1502 normal sinus rhythm no acute EKG changes noted no ST elevation rate of 66 DC interval 176. Discharge Plan Discharge Patient Disposition: Home Clinical Impression: Right-sided chest wall pain Condition: Stable Prescriptions: New diclofenac sodium 75 mg tablet,delayed release (DR/EC) 75 mg PO Q12H PRN (Reason: pain) Qty: 20 0RF No Action fluticasone propionate 110 mcg/actuation HFA aerosol inhaler 1 puff inhalation BID Qty: 12 11RF glipizide 10 mg tablet 10 mg PO DAILY Qty: 90 3RF Januvia 100 mg tablet 100 mg PO DAILY Qty: 90 3RF olmesartan 20 mg tablet 20 mg PO DAILY Qty: 90 3RF nitroglycerin 0.4 mg tablet, sublingual 0.4 mg sublingual Q5M PRN (Reason: chest pain) Qty: 25 2RF Rx Instructions: do not exceed 3 doses per episode metoprolol succinate 25 mg tablet extended release 24 hr 12.5 mg PO DAILY Qty: 90 3RF cholecalciferol (vitamin D3) 50 mcg (2,000 unit) capsule 50 mcg PO DAILY Qty: 30 6RF (DME) FreeStyle Surekha 2 Sensor Kit See Rx Instructions .Route Qty: 2 12RF Rx Instructions: As directed for Diabetes Type 2 clopidogrel [Plavix] 75 mg tablet 75 mg PO DAILY Qty: 90 3RF aspirin 81 mg capsule 81 mg PO DAILY 90 Days Qty: 90 3RF metformin 1,000 mg tablet 1,000 mg PO BID atorvastatin 80 mg tablet 80 mg PO DAILY naproxen 500 mg tablet 500 mg PO BID PRN (Reason: Pain) insulin glargine [Lantus Solostar U-100 Insulin] 100 unit/mL (3 mL) insulin pen 15 unit SUBCUT BID Discharge Orders: Discharge ED (Routine); Ordered 11/04/24 Ordered By: Jamal Trevizo Referrals: Braulio Hollins MD [Primary Care Provider] - Discharge Diet: Usual diet Discharge Activity: Resume usual activity Patient Instructions: Opioid Safety, Pain Management Activity Restrictions/Additional Instructions: Thank you for choosing [facility] for your healthcare needs today. It is very important that you follow up as instructed or that you return to the Emergency Department should you have concerns or if your condition changes or worsens in any way. You were seen in the emergency room with a complaint of right-sided chest pain EKGs and cardiac enzymes were normal. Based on the description of your symptoms to us this appears to be more musculoskeletal in nature you can use diclofenac as needed follow-up with your primary care doctor as needed Print Language: Indonesian Coding Level of Care Code ED Inspector Balance Bridge for Eugenio Stone
--- NOTE | 2024-11-04 14:37 | XRR_ITS ---
PROCEDURE INFORMATION: Exam: XR Chest Exam date and time: 11/04/2024 2:38 PM Age: 54 years old Clinical indication: Chest pressure; Chest pain TECHNIQUE: Imaging protocol: Radiologic exam of the chest. Views: 1 view. COMPARISON: CR XR chest 1V [id number] 12/08/2017 7:29 PM FINDINGS: Lungs: Unremarkable. No consolidation. Pleural spaces: Unremarkable. No pleural effusion. No pneumothorax. Heart/Mediastinum: Unremarkable. No cardiomegaly. Bones/joints: Mild degenerative disease of bilateral acromioclavicular joints. The thoracic spine demonstrates mild degenerative changes at multiple levels. XR/XR chest 1V portable [id number] IMPRESSION: No acute cardiopulmonary process.
--- NOTE | 2024-11-04 14:37 | ECG_ITS ---
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
[2024-11-04 14:42] LABS: Basophils # 0.1 10^3/uL (0.0-0.1); Basophils % 0.8 %; Eosinophils # 0.1 10^3/uL (0.0-0.8); Eosinophils % 2.4 %; Hematocrit 42.3 % (37-53); Lymphocytes # 1.7 10^3/uL (0.8-4.8); Lymphocytes % 28.3 %; Mean Corpuscular HGB Conc 32.9 g/dL (30-55); Mean Corpuscular Hemoglobin 29.2 pg (27-33); Mean Corpuscular Volume 88.9 fl (82-101); Mean Platelet Volume 10.1 fL (7.4-10.4); Monocytes # 0.6 10^3/uL (0.2-0.9); Neutrophils # 3.43 10^3/uL (1.8-7.7); Neutrophils % 58.2 %; Nucleated Red Blood Cells % 0 %; Platelet Count 229 10^3/cmm (157-399); Red Blood Count 4.76 10^6/uL (3.85-5.65); Red Cell Distribution Width 12.8 % (12.1-15.1)
[2024-11-04 14:54] LABS: Troponin(5th) Baseline 23 ng/L (0-15)
[2024-11-04 14:55] LABS: Alanine Aminotransferase 25 U/L (0-41); Albumin Level 3.8 g/dL (3.5-5.2); Alkaline Phosphatase 74 U/L (40-130); Anion Gap 13.1 (5-19); Aspartate Amino Transferase 20 U/L (0-40); Blood Urea Nitrogen 10 mg/dL (6-20); Calcium 8.2 mg/dL (8.5-10.5); Carbon Dioxide 26 mmol/L (22-29); Chloride 102 mmol/L (98-107); Creatinine Clr Calc Pharmacy 159.2884; Globulin 2.1 g/dL (1.3-4.6); Glomerular Filtration Rate 139.9 mL/min (90-130); Glucose 260 mg/dL (65-115); Osmolality Calculated 292 mOsm/kg (285-295); Potassium 4.1 mmol/L (3.5-5.1); Sodium 137 mmol/L (136-145); Total Bilirubin 0.5 mg/dL (0.15-1.2); Total Protein 5.9 g/dL (6.6-8.7)
[2024-11-04] MEDS: aspirin 81 mg Chew Tablet 324 MG PO (14:58)
--- NOTE | 2024-11-04 15:02 | ECG_ITS ---
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
[2024-11-04 15:23] VITALS: BP 124/80; PULSE 68; O2SAT 98
[2024-11-04 16:02] LABS: Troponin 5 2HR 20.28 ng/L (0-15); Troponin 5 2HR Delta -2.72 ABS# (0-10)
[2024-11-04 17:34] VITALS: BP 150/74; PULSE 76; O2SAT 100
[2024-11-04 19:07] VITALS: BP 133/62; PULSE 69; O2SAT 98
== END 2024-11-04 19:09 | disposition home or self-care (01) ==
PROVIDERS: Emergency Provider Family Medicine; PCP Family Medicine
DX: R07.89 Other chest pain (principal); Z79.02 Long term (current) use of antithrombotics/antiplatelets; Z79.82 Long term (current) use of aspirin; Z79.84 Long term (current) use of oral hypoglycemic drugs; Z87.891 Personal history of nicotine dependence; E11.9 Type 2 diabetes mellitus without complications; I10 Essential (primary) hypertension
CPT/HCPCS: 36415; 71045; 80053; 84484; 85025; 93005; 99285; J9999

== ENCOUNTER 2025-01-10 09:29 | Emergency (ER) | payer MEDICARE, MEDICAID, SELFPAY ==
[2025-01-10 09:30] VITALS: BP 110/56; PULSE 57; RESP 15; TEMP 36.4; O2SAT 98; BMI 24.3
--- NOTE | 2025-01-10 09:32 | ECG_ITS ---
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 Measurements Intervals [place] Rate: 58 P: 58 [place]: 162 QRS: -15 QRSD: 105 T: 18 QT: 444 QTc: 440 Interpretive Statements SINUS BRADYCARDIA Compared to ECG 11/04/2024 15:02:13 Sinus rhythm no longer present Myocardial infarct finding no longer present Electronically Signed On 01-11-2025 08:56:32 CDT by Walter Rankin M.D. [email or web address] [id number]
--- NOTE | 2025-01-10 09:32 | XR_ITS ---
WS: [id number] XR chest 1V portable [id number] REASON FOR EXAM: cp FINDINGS: Chest is unchanged compared to 11/04/2024. The heart and the mediastinum are within normal limits. Calcified granulomatous disease bilaterally. No pulmonary parenchymal or pleural abnormality. Mild to moderate degenerative spondylosis in the mid and lower thoracic spine. Moderate osteoarthritis of both shoulder joints. XR/XR chest 1V portable [id number] IMPRESSION: Stable chest with no acute abnormality.
--- NOTE | 2025-01-10 09:36 | ED_ITS ---
HPI - Chest Pain 2 General: Chief Complaint: Chest Pain Stated Complaint: Chest Pain Time Seen by Provider: 01/10/25 09:31 Source: patient and EMS Mode of arrival: EMS Limitations: no limitations History of Present Illness: 54-year-old male states he been having c hest pain since this morning. Sharp pain in the center of his chest came by ambulance they did give him aspirin his pain is improved denies any nausea vomiting or diaphoresis. Denies any worse improved factors. Associated symptoms: Deny abdominal pain, dyspnea, fever(s), nausea or vomiting Related Data Home Medications ?Medication ?Instructions ?Recorded ?Confirmed atorvastatin 80 mg tablet 80 mg PO DAILY 11/04/24 07/09/05 insulin glargine 100 unit/mL (3 15 unit SUBCUT BID 01/10/25 mL) subcutaneous pen (Lantus Solostar U-100 Insulin) metformin 1,000 mg tablet 1,000 mg PO BID 11/04/2409/05 aspirin 81 mg tablet,delayed 81 mg PO DAILY 01/10/25 0 01/10/25 release Previous Rx's ?Medication ?Instructions ?Recorded fluticasone propionate 110 1 puff inhalation BID #12 g ajit 05/10/24 mcg/actuation HFA aerosol inhaler glipizide 10 mg tablet 10 mg PO DAILY #90 tabs 04/13 olmesartan 20 mg tablet 20 mg PO DAILY #90 tabs 04/13 sitagliptin phosphate 100 mg 100 mg PO DAILY #90 tabs 05/10/24 tablet (Januvia) cholecalciferol (vitamin D3) 50 50 mcg PO DAILY #30 ca ps 06/05/24 mcg (2,000 unit) capsule metoprolol succinate 25 mg 12.5 mg (1/2 x 25 mg) PO DA LUANNE #90 08/03/24 tablet,extended release 24 hr tabs nitroglycerin 0.4 mg sublingual 0.4 mg sublingual Q5M PRN chest 08/03/24 tablet pain #25 tabs clopidogrel 75 mg tablet (Plavix) 75 mg PO DAILY #90 t abs 08/18/24 diclofenac sodium 75 mg 75 mg PO Q12H PRN pain #20 t abs 11/04/24 tablet,delayed release alcohol swabs (Alcohol Prep Pads) 1 pad topical .COMPL EX #200 ea 01/04/25 Allergies Allergy/AdvReac Type Severity Reaction Status Date / Time No Known Allergies Allergy Verified 08/17/24 08:34 Review of Systems 2 Const: Denies: fever(s), chills, body aches or change in appetite ENMT: Denies: throat pain or dental pain Card: Reports: chest pain Resp: Denies: dyspnea GI: Denies: abdominal pain, nausea, vomiting or diarrhea Musc: Denies: neck pain or back pain Skin/Breast: Denies: rash Neuro: Denies: headache(s) PFSH ED 2 PFSH: Medical History Muteness Bilateral hearing loss Generalized anxiety disorder Mild intermittent asthma Essential hypertension Type 2 diabetes mellitus without complications Surgical History Hx of tonsillectomy 2003 History of cochlear implant lost his device. follows with someone in [facility]. History of surgical procedure on mouth reports history of tongue surgery Family History Mother , etoh Diabetes Social History Smoking and tobacco/nicotine status: former use of tobacco/nicotine Quit status (tobacco/nicotine): has quit using Year quit tobacco: 1998 Former quit date comment: 03/1999 Alcohol intake: former Year of sobriety/quit date alcohol: 2021 Former alcohol use details: He quit 2 years after his mom Substance/Drug Use: never Additional social history: living in homeless residential Marital status: Single Highest education level completed: 12th Grade, No Diploma Current occupational status: disabled Physical Exam 2 Const: COMMON NORMALS: patient oriented x3 HENMT: COMMON NORMALS: normocephalic and atraumatic HEAD & SCALP: n ormocephalic and atraumatic Eye: COMMON NORMALS: Equal, round and reactive pupils present and EOMs intact bilaterally PUPIL: Yes Equal, round and reactive pupils present Neck/C-Spine: COMMON NORMALS: full ROM and supple Chest: COMMONS NORMALS: normal inspection of the chest and normal palpation of entire chest wall Resp: COMMON NORMALS: normal respiratory effort, No retractions, No use of accessory muscles and clear to auscultation bilaterally AUSCULTATION: clear to auscultation bilaterally Cardio: COMMON NORMALS: regular rate, regular rhythm and No murmurs present (Cardio) RATE: regular rate RHYTHM: regular rhythm GI: COMMON NORMALS: Normal to inspection, nondistended, normoactive bowel sounds present, Soft to palpation, non-tender and no masses PALPATION: Yes Soft to palpation Extremity: COMMON NORMALS: normal to inspection and full ROM Neuro: COMMON NORMALS: patient oriented x3, moves all extremities and no focal motor deficits Psych: COMMON NORMALS: mental status grossly normal, Normal thought process present and cooperative THOUGHT PROCESS: Normal thought process present Skin: COMMON NORMALS: no rashes or lesions noted and no wounds GENERAL SKIN EXAM: no rashes or lesions noted Course 2 Vital Signs: Vital signs: Vital Signs Temperature 97.6 F 01/10/25 09:30 Pulse Rate 53 L 01/10/25 12:08 Respiratory Rate 18 01/10/25 11:15 Blood Pressure 126/71 01/10/25 12:08 Pulse Oximetry 99 01/10/25 12:08 Oxygen Delivery Me thod Room Air 01/10/25 11:15 MDM - Chest Pain Medical Decision Making Patient presents for chest pain is atypical in nature initial repeat troponin here negative no signs of ACS no signs of pulmonary embolism he stable for discharge follow-up PCP return if worsening. Medical Records I reviewed the patient's medical records. Lab Data I reviewed the patient's lab results. 01/10/25 09:35 01/10/25 09:35 Radiology Impressions Chest X-Ray 01/10/25 09:32 IMPRESSION: Stable chest with no acute abnormality. Laboratory Results WBC 8.86 10^3/uL (3.29-11.43) 01/10/25 09:35 RBC 4.98 10^6/uL (3.85-5.65) 01/10/25 09:35 Hgb 14.80 g/dL (11.27-16.99) 01/10/25 09:35 Hct 43.9 % (37-53) 01/10/25 09:35 MCV 88.2 fl (82-101) 01/10/25 09:35 MCH 29.7 pg (27-33) 01/10/25 09:35 MCHC 33.7 g/dL (30-55) 01/10/25 09:35 RDW 12.7 % (12.1-15.1) 01/10/25 09:35 Plt Count 179 10^3/cmm (157-399) 01/10/25 09:35 MPV 10.5 fL (7.4-10.4) H 01/10/25 09:35 Neut % (Auto) 71.1 % 01/10/25 09:35 Lymph % (Auto) 18.7 % 01/10/25 09:35 [place] % (Auto) 8.0 % 01/10/25 09:35 Eos % (Auto) 0.9 % 01/10/25 09:35 Baso % (Auto) 0.7 % 01/10/25 09:35 Neut # (Auto) 6.30 10^3/uL (1.8-7.7) 01/10/25 09:35 Lymph # (Auto) 1.7 10^3/uL (0.8-4.8) 01/10/25 09:35 [place] # (Auto) 0.7 10^3/uL (0.2-0.9) 01/10/25 09:35 Eos # (Auto) 0.1 10^3/uL (0.0-0.8) 01/10/25 09:35 Baso # (Auto) 0.1 10^3/uL (0.0-0.1) 01/10/25 09:35 Nucleated RBC % (auto) 0 % 01/10/25 09:35 Nucleated RBCs # 0.0 /100WBC 01/10/25 09:35 PT 14.20 SECONDS (12.1-14.9) 01/10/25 09:35 INR 1.03 (0.8-1.2) 01/10/25 09:35 Sodium 139 mmol/L (136-145) 01/10/25 09:35 Potassium 4.3 mmol/L (3.5-5.1) 01/10/25 09:35 Chloride 105 mmol/L (98-107) 01/10/25 09:35 Carbon Dioxide 19 mmol/L (22-29) L 01/10/25 09:35 Anion Gap 19.3 (5-19) H 01/10/25 09:35 BUN 32 mg/dL (6-20) H 01/10/25 09:35 Creatinine 1.2 mg/dL (0.7-1.2) 01/10/25 09:35 GFR Calculation 62.9 mL/min (90-130) L 01/10/25 09:35 Glucose 94 mg/dL (65-115) 01/10/25 09:35 Calculated Osmolality 295 mOsm/kg (285-295) 01/10/25 09:35 Calcium 8.5 mg/dL (8.5-10.5) 01/10/25 09:35 Total Bilirubin 0.6 mg/dL (0.15-1.2) 01/10/25 09:35 AST 16 U/L (0-40) 01/10/25 09:35 ALT 16 U/L (0-41) 01/10/25 09:35 Alkaline Phosphatase 61 U/L (40-130) 01/10/25 09:35 Troponin T Baseline 20 ng/L (0-15) H 01/10/25 09:35 Troponin T 120 Minute 17.07 ng/L (0-15) H 01/10/25 11:14 Delta Troponin T -2.93 ABS# (0-10) L 01/10/25 11:14 Total Protein 6.7 g/dL (6.6-8.7) 01/10/25 09:35 Albumin 4.1 g/dL (3.5-5.2) 01/10/25 09:35 Globulin 2.6 g/dL (1.3-4.6) 01/10/25 09:35 Lipase 70 U/L (13-60) H 01/10/25 09:35 All radiology interpretation(s) finalized by discharge EKG Data EKG 1: I personally reviewed and interpreted this EKG as follows: EKG interpretation date: 01/10/25 EKG interpretation time: 09:36 Interpretation: sinus darian hr [address] elevation qrs 105 qtc 442 Discharge Plan Discharge Patient Disposition: Home Clinical Impression: Chest pain Condition: Stable Prescriptions: No Action fluticasone propionate 110 mcg/actuation HFA aerosol inhaler 1 puff inhalation BID Qty: 12 11RF glipizide 10 mg tablet 10 mg PO DAILY Qty: 90 3RF Januvia 100 mg tablet 100 mg PO DAILY Qty: 90 3RF olmesartan 20 mg tablet 20 mg PO DAILY Qty: 90 3RF nitroglycerin 0.4 mg tablet, sublingual 0.4 mg sublingual Q5M PRN (Reason: chest pain) Qty: 25 2RF Rx Instructions: do not exceed 3 doses per episode metoprolol succinate 25 mg tablet extended release 24 hr 12.5 mg PO DAILY Qty: 90 3RF cholecalciferol (vitamin D3) 50 mcg (2,000 unit) capsule 50 mcg PO DAILY Qty: 30 6RF alcohol swabs [Alcohol Prep Pads] Pads, Medicated 1 pad topical .COMPLEX Qty: 200 11RF Rx Instructions: 1 pad topically USE ONE PAD TOPICALLY DIRECTED; USE DIRECTED TO CLEAN SKIN PRIOR TO FINGER STICK OR MEDICATION INJECTION; clopidogrel [Plavix] 75 mg tablet 75 mg PO DAILY Qty: 90 3RF metformin 1,000 mg tablet 1,000 mg PO BID atorvastatin 80 mg tablet 80 mg PO DAILY insulin glargine [Lantus Solostar U-100 Insulin] 100 unit/mL (3 mL) insulin pen 15 unit SUBCUT BID diclofenac sodium 75 mg tablet,delayed release (DR/EC) 75 mg PO Q12H PRN (Reason: pain) Qty: 20 0RF aspirin [Aspir-81] 81 mg Tablet,Delayed Release (Dr/Ec) 81 mg PO DAILY Discharge Orders: Discharge ED (Routine); Ordered 01/10/25 Ordered By: Cheli Marinelli Referrals: Braulio Hollins MD [Primary Care Provider, Family Practice] - 4-7 days Discharge Diet: Advance as tolerated Discharge Activity: Resume usual activity Patient Instructions: Chest Pain (ED) Print Language: Qatari Sign Language Coding Level of Care Code ED Kinesiotherapist for Eugenio Stone
--- OUTSIDE RECORDS SUMMARY | 2025-01-10 09:37 | XMS_ITS | Clinical Summary ---
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 Active montelukast (SINGULAIR) 10 mg tabletIndications :Mild intermittent asthma without complication Take 1 Tablet (10 mg) by mouth late in the day. 90 Tablet 3 9 Active carBAMazepine (TEGretol) 200 mg tabletIndications :Bipolar disorder, in partial remission, most recent episode mixed ([facility]) Take 1 Tablet (200 mg) by mouth 2 times daily. 180 Tablet 3 9 Active OneTouch Delica Plus Lancet 33 gauge USE TO CHECK BLOOD SUGAR ONCE DAILY 0 Active albuterol HFA 90 mcg inhalerIndication s:Mild intermittent asthma without complication TAKE 2 PUFFS BY INHALATION EVERY 6 HOURS NEEDED FOR SHORTNESS OF BREATH. 18 Gram 5 0 Active atorvastatin (LIPITOR) 10 mg tablet Take 1 Tablet (10 mg) by mouth daily. 90 Tablet 3 0 Active glipiZIDE (GLUCOTROL) 10 mg tabletIndications :Type 2 diabetes mellitus without complication, without long-term current use of insulin (CMS/HCC) Take 1 Tablet (10 mg) by mouth 2 times daily. 180 Tablet 3 0 Active SITagliptin (Januvia) 100 mg TabletIndications :Type 2 diabetes mellitus without complication, without long-term current use of insulin (CMS/[facility]) Take 1 Tablet (100 mg) by mouth daily with breakfast. 90 Tablet 3 0 Active Lantus Solostar U-100 Insulin 100 unit/mL (3 mL) solution for injection INJECT 25 UNITS SC D. 15 mL 2 0 Active olmesartan (BENICAR) 20 mg tabletIndications :Essential hypertension Take 1 Tablet (20 mg) by mouth daily. 90 Tablet 3 0 Active Blood-Glucose Meter (Blood Glucose Monitoring) KitIndications:Ty pe 2 diabetes mellitus without complication, without long-term current use of insulin ([facility]) Check blood sugars TID. Please provide strips and lancets as well that are covered by insurance. 1 Kit 1 Active blood sugar diagnostic (Blood Glucose Test) StripIndications: Type 2 diabetes mellitus without complication, without long-term current use of insulin ([facility]) Check blood sugar daily 100 Strip 6 1 Active metFORMIN (GLUCOPHAGE) 1,000 mg tabletIndications :Type 2 diabetes mellitus without complication, without long-term current use of insulin ([facility]) TAKE 1 TABLET BY MOUTH 2 TIMES DAILY. 180 Tablet 1 1 Active Flovent HFA 110 mcg/actuation HFA Aerosol InhalerIndication s:Mild intermittent asthma without complication INHALE 2 PUFFS BY MOUTH 2 TIMES DAILY. 12 Gram 11 1 Active empagliflozin (Jardiance) 10 mg tablet TAKE 1 TABLET BY MOUTH DAILY 90 Tablet 4 1 Active Active Problems Problem Noted Date Diagnosed Date Type 2 diabetes mellitus wit hout complication, without long-term current use of insulin 02/01/2019 Essential hypertension 02/01/2019 Bipolar disorder, in partial remission, most recent episode mixed 02/01/2019 Mild intermittent asthma without complication Cochlear implant in place with multiple channels 04/11/1989 Sensory hearing loss, bilateral 07/12/1970 Immunizations Immunization Administration Dates Next Due INFLUENZA VACCINE QUADRIVALENT 3 YR UP [facility] 08/2019 INFLUENZA VACCINE QUADRIVALENT 6 MOS UP [facility] ,03/09/2018 Social History Tobacco Use Types Packs/Day Years Used Date Smoking Tobacco: Never Smokeless Tobacco: Never Alcohol Use Standard Drinks/Week Comments Never 0 (1 standard drink = 0.6 oz pur e alcohol) Sex and Gender Information Value Date Recorded Sex Assigned at Not on file Legal Sex Male 2:18 PM CDT Gender Identity Not on file Sexual Orientation Not on file Last Filed Vital Signs Vital Sign Reading Time Taken Comments Blood Pressure 119/67 11/11/2020 9:18 AM CDT Pulse 95 11/11/2020 9:18 AM CDT Temperature 36.4 C (97.6 F) 11/11/2020 9:18 AM CDT Respiratory Rate 18 08/12/2020 10:0 9 AM 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 95% 11/11/2020 9:18 AM CDT Inhaled Oxygen Concentration - - Weight 113.1 kg (249 lb 6.4 oz) 11/11/2020 9:18 AM CDT Height 172.7 cm (5' 8 ) 11/11/2020 9:18 AM CDT Body Mass Index 37.92 11/11/2020 9:18 AM CDT Plan of Treatment Health Maintenance Due Date Last Done Comments FIT/ DNA Q 3 YEARS (AUTO ORDER) 10/31/1987 FIT/FOBT Q 1 YEAR (AUTO ORDER) 10/31/1987 FLEX SIG/CT COLONOGRAPHY Q 5 YEARS (AUTO ORDER) 10/31/1987 DTAP/TDAP/TD VACCINES (1 - Tdap) 1988 HEPATITIS B VACCINES (1 of 3 - 19+ 3-dose series) 1988 COLORECTAL CANCER SCREENING (AUTO ORDER) 2014 COLORECTAL SCREENING 2014 Colorectal Cancer Screening (AUTO ORDER) 2014 Colorectal Cancer Screening 2014 FIT-DNA Q 3 years 2014 FIT/FOBT Q 1 year 2014 Flex Sig/CT Colonography Q 5 years 2014 ZOSTER VACCINE (1 of 2) 10/31/2019 DIABETES MICROALBUMIN ANNUAL SCREEN 10/11/2020 10/12/2019, 02/01/2019, 03/07/2018 DIABETES ANNUAL FOOT EXAM 04/09/2021 04/09/2020 DIABETES HBA1C Q 6 MONTHS 05/14/20212020, 08/12/2020, 05/10/2020, Additional history exists LDL CHOLESTEROL ANNUAL 11/11/2021 , 05/10/2020, 01/10/2020, Additional history exists DIABETES ANNUAL RETINAL EXAM 08/04/2022, 03/24/2021, 09/18/2020 INFLUENZA VACCINE (#1) 2024 , 03/13/2020, 03/09/2018 [place] ([place]) Preventative Visit/Annual Wellness Visit 07/12/2024 04/09/2020 Procedures Procedure Name Priority Date/Time Associated Diagnosis Comments LIPID PANEL Routine 11/11/2020 9:57 AM CDT Type 2 diabetes mellitus without complication, without long-term current use of insulin ([facility]) HEMOGLOBIN A1C Routine 11/11/2020 9:57 AM CDT Type 2 diabetes mellitus without complication, without long-term current use of insulin ([facility]) DIABETES EYE EXAM Routine 09/18/2020 MICROALBUMIN/CREATIN INE RATIO, RANDOM UR Routine 10/12/2019 from Last 3 Months or Most Recently Relevant to Health Maintenance Results * (ABNORMAL) HEMOGLOBIN A1C (11/11/2020 9:57 AM CDT) HEMOGLOBIN A1C 10.9(H) See Comment % 11/11/2020 8:53 PM CDT [facility] EST. AVG GLUCOSE, A1C 266 mg/dL 11/11/2020 8:53 PM CDT [facility] Blood Venipuncture / Unknown 11/11/2020 9:57 AM CDT 11/11/2020 8:19 PM CDT Narrative [facility] - 11/11/2020 8:53 PM CDT HGB A1C INTERPRETATION NORMAL: <5.7% PRE-DIABETES: 5.7 - 6.4% DIABETES: 6.5% OR GREATER Falsely low A1C measurements can occur when: 1. Anemia and/or hemolytic anemia is present. 2. Hemoglobin variants present. 3. Renal failure. 4. Transfusion of blood product in the last 120 days. We recommend ordering a fructosamine test([id number]) to more accurately assess glycemic status if any of the above conditions are present. us Kaila BOUDREAUXP CHEMISTRY ORDERABLES Final Re sult Performing Organization Address [facility]/ZIP Co de Phone Number [facility] CLIA# [id number] [address] [place] [address] * LIPID PANEL (11/11/2020 9:57 AM CDT) CHOLESTEROL 151 <200 mg/dL 11/11/2020 9:19 PM CDT [facility] TRIGLYCERIDE 115 <150 mg/dL 11/11/2020 9:19 PM CDT [facility] HDL 46 40 - 59 mg/dL 11/11/2020 9:19 PM CDT [facility] LDL CALCULATED 82 <100 mg/dL 11/11/2020 9:19 PM CDT [facility] NON-HDL CHOLESTEROL 105 <130 mg/dL 11/11/2020 9:19 PM CDT [facility] Blood Venipuncture / Unknown 11/11/2020 9:57 AM CDT 11/11/2020 8:18 PM CDT Narrative [facility] - 11/11/2020 9:19 PM CDT TOTAL CHOLESTEROL mg/dL Desirable <200 Borderline high 200-239 High >=240 TRIGLYCERIDES mg/dL Normal <150 Borderline high 150-199 High 200-499 Very high >=500 HDL CHOLESTEROL mg/dL Low <40 Normal 40-59 Desirable >=60 NON HDL CHOLESTEROL mg/dL Optimal <130 Near Optimal 130-159 Borderline High 160-189 Very High >=190 CALCULATED LDL mg/dL LDL <70, OPTIMAL if have Atherosclerotic cardiovascular disease (ASCVD) or intermediate or higher (>7.5%) 10 year risk of ASCVD including most adults with diabetes. LDL <100, Optimal in adult patients with low (<7.5%) 10 year ASCVD risk LDL 100-160, Suboptimal LDL >160, High LDL >190, Very high ATPIII Guidelines Reference Ranges for Lipid Panels (NCEP/AMA) . Kaila Franz [facility] CHEMISTRY ORDERABLES Final Re sult Performing Organization Address City/[facility]/ZIP Co de Phone Number [facility] CLIA# [id number] [address] [place] [address] * DIABETES EYE EXAM (09/18/2020) us Abstract Spg Provider HEALTH MAINTENANCE Final R esult * MICROALBUMIN/CREATININE RATIO, RANDOM UR (10/12/2019) ABSTRACTED MICROALBUMIN,URI NE 5.0 EXTERNAL LAB MICROALBUMIN, URINE EXTERNAL LAB CREATININE, URINE EXTERNAL LAB MICROALBUMIN/CRE AT RATIO, UR EXTERNAL LAB MICROALBUMIN, URINE EXTERNAL LAB CREATININE, URINE EXTERNAL LAB MICROALBUMIN/CRE AT RATIO, UR EXTERNAL LAB Urine URINE SPECIMEN OBTAINED BY CLEAN CATCH PROCEDURE / Unknown 10/12/2019 us Abstract Sp Provider URINE ORDERABLES Final Res ult EXTERNAL LAB from Last 3 Months or Most Recently Relevant to Health Maintenance Insurance MEDICAID [facility] Care Teams Plant Operations Engineer Relationship Specialty Start Date End Date Kimberlee Ward DO [address] [place] [id number] PCP - General Family Practice 02/01/19
[2025-01-10 09:45] VITALS: PULSE 60; RESP 12; O2SAT 99
[2025-01-10 09:45] LABS: Hematocrit 43.9 % (37-53); Hemoglobin 14.80 g/dL (11.27-16.99); Mean Corpuscular HGB Conc 33.7 g/dL (30-55); Mean Corpuscular Hemoglobin 29.7 pg (27-33); Mean Corpuscular Volume 88.2 fl (82-101); Nucleated Red Blood Cells % 0 %; Platelet Count 179 10^3/cmm (157-399); Red Blood Count 4.98 10^6/uL (3.85-5.65); White Blood Count 8.86 10^3/uL (3.29-11.43)
[2025-01-10 09:52] LABS: INR 1.03 (0.8-1.2); Prothrombin Time 14.20 SECONDS (12.1-14.9)
[2025-01-10 09:59] LABS: Troponin(5th) Baseline 20 ng/L (0-15)
[2025-01-10 10:05] LABS: Alanine Aminotransferase 16 U/L (0-41); Albumin Level 4.1 g/dL (3.5-5.2); Alkaline Phosphatase 61 U/L (40-130); Anion Gap 19.3 (5-19); Aspartate Amino Transferase 16 U/L (0-40); Blood Urea Nitrogen 32 mg/dL (6-20); Calcium 8.5 mg/dL (8.5-10.5); Carbon Dioxide 19 mmol/L (22-29); Chloride 105 mmol/L (98-107); Creatinine Clr Calc Pharmacy 68.9346; Globulin 2.6 g/dL (1.3-4.6); Glucose 94 mg/dL (65-115); Lipase 70 U/L (13-60); Osmolality Calculated 295 mOsm/kg (285-295); Potassium 4.3 mmol/L (3.5-5.1); Sodium 139 mmol/L (136-145); Total Protein 6.7 g/dL (6.6-8.7)
--- NOTE | 2025-01-10 10:15 | PC.PHAR ---
Pt states Braulio Small is no longer his pcp. Health records transfered to Sobeida Mccracken at [facility] in [place]. Pt also is in need of an rx for needles so he can continue taking his insulin, he is out.
[2025-01-10 11:15] VITALS: BP 103/43; PULSE 54; RESP 18; O2SAT 99
--- NOTE | 2025-01-10 11:32 | ECG_ITS ---
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 Measurements Intervals [place] Rate: 53 P: 45 MS: 160 QRS: -18 QRSD: 84 T: 9 QT: 429 QTc: 405 Interpretive Statements SINUS BRADYCARDIA LOW QRS VOLTAGE IN PRECORDIAL LEADS [QRS DEFLECTION < 1.0 mV IN CHEST LEADS] SEPTAL MYOCARDIAL INFARCTION , PROBABLY OLD [40+ ms Q WAVE IN V1/V2] Compared to ECG 11/04/2024 15:02:13 Low QRS voltage now present Sinus rhythm no longer present Myocardial infarct finding still present Electronically Signed On 01-11-2025 09:31:04 CDT by Walter Rankin M.D. [email or web address]
[2025-01-10 11:37] LABS: Troponin 5 2HR 17.07 ng/L (0-15)
[2025-01-10 11:45] LABS: Troponin 5 2HR Delta -2.93 ABS# (0-10)
[2025-01-10 12:08] VITALS: BP 126/71; PULSE 53; O2SAT 99
== END 2025-01-10 12:18 | disposition home or self-care (01) ==
PROVIDERS: Emergency Provider Emergency Medicine; PCP Family Medicine
DX: R07.9 Chest pain, unspecified (principal); Z79.02 Long term (current) use of antithrombotics/antiplatelets; Z79.84 Long term (current) use of oral hypoglycemic drugs; Z79.82 Long term (current) use of aspirin; Z87.891 Personal history of nicotine dependence; E11.9 Type 2 diabetes mellitus without complications; I10 Essential (primary) hypertension
CPT/HCPCS: 71045; 80053; 83690; 84484; 85025; 85610; 93005; 99285

== ENCOUNTER 2025-01-27 17:25 | Emergency (ER) | payer MEDICARE, MEDICAID, SELFPAY ==
--- OUTSIDE RECORDS SUMMARY | 2025-01-27 17:30 | XMS_ITS | Clinical Summary ---
Author Organization [facility] Address [address] [place] [address] Care Team Providers Care Cook Fry Name Role Phone Kimberlee Ward Primary Care Provider [phone]- [phone] Allergies No known active allergies Medications peg 400/hypromellose/ glycerin (EYE DROP TEARS OP) by Ophthalmic route. Active montelukast (SINGULAIR) 10 mg tabletIndications :Mild intermittent asthma without complication Take 1 Tablet (10 mg) by mouth late in the day. 90 Tablet 3 9 Active carBAMazepine (TEGretol) 200 mg tabletIndications :Bipolar disorder, in partial remission, most recent episode mixed ([facility]) Take 1 Tablet (200 mg) by mouth [...] complication, without long-term current use of insulin (CMS/[facility]) Take 1 Tablet (100 mg) by mouth [...] complication, without long-term current use of insulin ([facility]) Check blood sugars TID. Please provide strips and lancets as well that are covered by insurance. 1 Kit 1 Active blood sugar diagnostic (Blood Glucose Test) StripIndications: Type 2 diabetes mellitus without complication, without long-term current use of insulin ([facility]) Check blood sugar daily 100 Strip 6 1 Active metFORMIN (GLUCOPHAGE) 1,000 mg tabletIndications :Type 2 diabetes mellitus without complication, without long-term current use of insulin ([facility]) TAKE 1 TABLET BY MOUTH 2 TIMES [...] Due INFLUENZA VACCINE QUADRIVALENT 3 YR UP [facility] 08/2019 INFLUENZA VACCINE QUADRIVALENT 6 MOS UP [facility] ,03/09/2018 Social History Tobacco Use [...] Respiratory Rate 18 08/12/2020 10:0 9 AM 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% 11/11/2020 9:18 AM CDT [...] DIABETES ANNUAL RETINAL EXAM 08/04/2022, 03/24/2021, 09/18/2020 [place] Preventative Visit/Annual Wellness Visit 07/12/2024 04/09/2020 INFLUENZA VACCINE (#1) 2025 0, 03/13/2020, 03/09/2018 Procedures Procedure Name Priority Date/Time Associated Diagnosis Comments LIPID PANEL Routine 11/11/2020 9:57 AM CDT Type 2 diabetes mellitus without complication, without long-term current use of insulin ([facility]) HEMOGLOBIN A1C Routine 11/11/2020 9:57 AM CDT Type 2 diabetes mellitus without complication, without long-term current use of insulin ([facility]) DIABETES EYE EXAM Routine 09/18/2020 MICROALBUMIN/CREATIN INE RATIO, RANDOM UR Routine 10/12/2019 from Last 3 Months or Most Recently Relevant to Health Maintenance Results * (ABNORMAL) HEMOGLOBIN A1C (11/11/2020 9:57 AM CDT) HEMOGLOBIN A1C 10.9(H) See Comment % 11/11/2020 8:53 PM CDT [facility] EST. AVG GLUCOSE, A1C 266 mg/dL 11/11/2020 8:53 PM CDT [facility] Blood Venipuncture / Unknown 11/11/2020 9:57 AM CDT 11/11/2020 8:19 PM CDT Narrative [facility] - 11/11/2020 8:53 PM CDT HGB A1C INTERPRETATION NORMAL: <5.7% PRE-DIABETES: 5.7 - 6.4% DIABETES: 6.5% OR GREATER Falsely low A1C measurements can occur when: 1. Anemia and/or hemolytic anemia is present. 2. Hemoglobin variants present. 3. Renal failure. 4. Transfusion of blood product in the last 120 days. We recommend ordering a fructosamine test([id number]) to more accurately assess glycemic status if any of the above conditions are present. us Kaila BOUDREAUXP CHEMISTRY ORDERABLES Final Re sult Performing Organization Address [facility]/ZIP Co de Phone Number [facility] CLIA# [id number] [address] [place] [address] * LIPID PANEL (11/11/2020 9:57 AM CDT) CHOLESTEROL 151 <200 mg/dL 11/11/2020 9:19 PM CDT [facility] TRIGLYCERIDE 115 <150 mg/dL 11/11/2020 9:19 PM CDT [facility] HDL 46 40 - 59 mg/dL 11/11/2020 9:19 PM CDT [facility] LDL CALCULATED 82 <100 mg/dL 11/11/2020 9:19 PM CDT [facility] NON-HDL CHOLESTEROL 105 <130 mg/dL 11/11/2020 9:19 PM CDT [facility] Blood Venipuncture / Unknown 11/11/2020 9:57 AM CDT 11/11/2020 8:18 PM CDT Narrative [facility] - 11/11/2020 [...] for Lipid Panels (NCEP/AMA) . Kaila Franz [facility] CHEMISTRY ORDERABLES Final Re sult Performing Organization Address City/[facility]/ZIP Co de Phone Number [facility] CLIA# [id number] [address] [place] [address] * DIABETES EYE EXAM (09/18/2020) us Abstract [...] Relevant to Health Maintenance Insurance MEDICAID [facility] Care Teams Cook Fry Relationship Specialty Start Date End Date Kimberlee Ward DO [address] [place] [phone] PCP - General Family Practice 02/01/19
[2025-01-27 17:35] VITALS: BP 136/74; PULSE 88; RESP 16; O2SAT 95; BMI 34.2
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
[2025-01-27] MEDS: HYDROcodone-acetaminophen 5-325 mg Tablet 1 TAB PO (18:00)
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
--- NOTE | 2025-01-27 19:37 | PC.NURSE ---
posterior leg spling with strirrup placed using approx 6 ft of orthoglass and 3 - 3inche shanda wraps to keep in place. pt tolerated procedure well with no difficulties.
[2025-01-27 20:02] VITALS: BP 132/81; PULSE 90; RESP 19; O2SAT 95
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
== END 2025-01-27 20:04 | disposition home or self-care (01) ==
PROVIDERS: Emergency Provider Physician Assistant; PCP Family Medicine
DX: S82.892A Other fracture of left lower leg, initial encounter for closed fracture (principal); Z79.84 Long term (current) use of oral hypoglycemic drugs; Z79.4 Long term (current) use of insulin; Z79.82 Long term (current) use of aspirin; Z87.891 Personal history of nicotine dependence; E11.9 Type 2 diabetes mellitus without complications; I10 Essential (primary) hypertension; V09.9XXA Pedestrian injured in unspecified transport accident, initial encounter
CPT/HCPCS: 29515; 73590; 73610; 73630; 99283; J9999

== ENCOUNTER → 2025-01-30 14:56 | Outpatient (BNVA) | payer MEDICARE, MEDICAID, SELFPAY | PROVIDERS: PCP Family Medicine; Visit Provider Podiatrist Foot & Ankle Surgery | DX: S82.55XA Nondisplaced fracture of medial malleolus of left tibia, initial encounter for closed fracture (principal); V03.10XA Pedestrian on foot injured in collision with car, pick-up truck or van in traffic accident, initial encounter | CPT/HCPCS: 99204 ==

== ENCOUNTER 2025-01-31 08:37 | Day surgery (SDC) | payer MEDICARE, MEDICAID, SELFPAY ==
[2025-01-31] VITALS (12 sets, daily range): BP systolic 93–123; BP diastolic 51–83; PULSE 61–83; RESP 12–18; TEMP 36.2–36.7; O2SAT 94–100; BMI 34.9
--- NOTE | 2025-01-31 | XR_ITS ---
WS: [id number] Left ankle, C-arm fluoroscopy views, 01/31/2025 Clinical Data: OR PICS Comparison: Left ankle, 01/27/2025 Findings: Dr. Sarabia inserted oblique screws to reduce the medial malleolar fracture. XR/XR ankle LT 2V [id number] Impression: Internal fixation of medial malleolar fracture of the left ankle.
--- NOTE | 2025-01-31 11:43 | W.PM.OPSUD ---
Surgery/Procedure H&P Update DATE OF PROCEDURE: January 31, 2025 DATE H&P PERFORMED: 01/30/25 H&P UPDATE INFORMATION: I have reviewed H&P completed within last 30 days, I have examined patient prior to procedure, No changes to prior documentation and Risks and benefits of the procedure reviewed PREOP DIAGNOSIS: Left medial malleolus fracture PLANNED PROCEDURE: Operation Date: 01/31/25 12:10 Proposed Procedures p ORIF Ankle ORIF Medial Malleolus(Left) - Spencer Sarabia DPM
--- NOTE | 2025-01-31 12:15 | P.ANESASSM_ITS ---
Pre-Anesthetic Assessment Height/Weight: Height 1.73 m Weight 104.326 kg Temp Pulse Resp BP Pulse Ox O2 Del Method 98.0 F 73 18 108/51 98 Room Air 01/31/25 11:01/31/25 11:01/31/25 11:01/31/25 11:01/31/25 11:01/31/25 11:26 Preop Diagnosis: Left medial malleolus fracture Operation Date: 01/31/25 12:10 Proposed Procedures p ORIF Ankle ORIF Medial Malleolus(Left) - Spencer Sarabia DPM Familial anesthetic complications: None Was Beta Nilda taken within 24 hours: N/A Was Clonidine taken within 24 hours: N/A Last intake: Intake Last Liquid Date 01/30/25 Last Liquid Time 23:45 Last Solid Date 01/30/25 Last Solid Time 18:00 Social No alcohol and No tobacco Exam alert, oriented x 3, clear to auscultation bilaterally and regular rate & rhythm Airway Mallampati: Class II Dentition: full CV/HEM Coronary Artery Disease (stents) Metabolic Diabetes Mellitus Anesthetic Plan ASA status: 4 Anesthesia: General and Regional (specify below) Other Pertinent Information Patient states to us that he does not take his plavix. At first he didn't recognize the name plavix or clopidogrel. Then when we told him he picked up this medication from the pharmacy on the 2nd of this month he said he doesn't take it because he doesn't want to. Reached out to Dr. Christopher who is out of town. THen reached out to Noy Moreno and cardiology media relations director. in consultation with cardiology and surgeon, Since patient is noncompliant and will continue to be and the broken ankle requires surgery we will proceed today and give him a loading dose orally Medications/Allergies Home Medications ?Medication ?Instructions ?Recorded ?Confirmed ?Last Taken ?Type fluticasone propionate 110 1 puff inhalation BID #12 g ajit 05/10/24 01/31/25 01/30/25 Rx mcg/actuation HFA aerosol inhaler sitagliptin phosphate 100 mg 100 mg PO DAILY #90 tabs 05/10/24 01/31/25 01/30/25 Rx tablet (Januvia) cholecalciferol (vitamin D3) 50 50 mcg PO DAILY #30 ca ps 06/05/24 01/31/25 01/30/25 Rx mcg (2,000 unit) capsule metoprolol succinate 25 mg 12.5 mg (1/2 x 25 mg) PO DA LUANNE #90 08/03/24 01/31/25 01/30/25 Rx tablet,extended release 24 hr tabs nitroglycerin 0.4 mg sublingual 0.4 mg sublingual Q5M PRN chest 08/03/24 01/31/25 01/30/25 Rx tablet pain #25 tabs atorvastatin 80 mg tablet 80 mg PO DAILY 11/04/24 07/10/0301/09/25 History diclofenac sodium 75 mg 75 mg PO Q12H PRN pain #20 t abs 11/04/24 01/31/25 Unknown Rx tablet,delayed release insulin glargine 100 unit/mL (3 15 unit SUBCUT BID 01/31/25 01/31/25 History mL) subcutaneous pen (Lantus Solostar U-100 Insulin) alcohol swabs (Alcohol Prep Pads) 1 pad topical .COMPL EX #200 ea 01/04/25 01/31/25 01/09/25 Rx aspirin 81 mg tablet,delayed 81 mg PO DAILY 01/10/25 0 01/31/25 01/30/25 History release glipizide 10 mg tablet 10 mg PO DAILY #90 tabs 03/0501/31/25 01/30/25 Rx olmesartan 20 mg tablet 20 mg PO DAILY #90 tabs 0703/0501/31/25 Unknown Rx hydrocodone 10 mg-acetaminophen 1 tab PO Q6H PRN pain 7 days #28 01/31/25 Unknown Rx 325 mg tablet tabs metformin 1,000 mg tablet 1,000 mg PO DAILY 01/31/25 0 01/31/25 01/30/25 History Allergies Allergy/AdvReac Type Severity Reaction Status Date / Time No Known Allergies Allergy Verified 01/30/25 15:09 Current Medications Generic Name Dose Route Start Last Admin Trade Name Freq PRN Reason Stop Dose Admin Sodium Chloride 1,000 mls @ 30 mls/hr 01/31/25 10:00 01/31/25 11:17 Sodium Chloride 0.9% IV 02/01/25 09:59 30 mls/hr .Q24H FELY Administration PFSH Anesthesia Medical History Muteness Bilateral hearing loss Generalized anxiety disorder Mild intermittent asthma Essential hypertension Type 2 diabetes mellitus without complications Surgical History Hx of tonsillectomy 2004 History of cochlear implant lost his device. follows with someone in [facility]. History of surgical procedure on mouth reports history of tongue surgery Family History Mother , etoh Diabetes Social History Smoking and tobacco/nicotine status: former use of tobacco/nicotine Quit status (tobacco/nicotine): has quit using Year quit tobacco: 1998 Former quit date comment: 03/1999 Alcohol intake: former Year of sobriety/quit date alcohol: 2021 Former alcohol use details: He quit 2 years after his mom Substance/Drug Use: never Additional social history: living in homeless group home Marital status: Single Highest education level completed: 12th Grade, No Diploma Current occupational status: disabled Data Anesthesia Cardiac Studies: Echocardiogram 08/18/24 Sestamibi Stress Test (Cardiology) 07/17 Anesthesia Procedures Nerve Block Nerve Block 1: Main Anesthesia: general anesthesia Time Out Performed: Yes Consent: requested by attending/covering physician, from patient, from other, risks and benefits reviewed and patient agrees to proceed Nerve block location: popliteal (L) Anesthesia monitors applied: pulse oximetry, EKG, BP cuff and oxygen Nerve block position: supine Anesthetic Used: ropivicaine 0.5% (30 ml) and with decadron (4 mg) Ultrasound used to: recognize landmarks Nerve Stimulator Used?: No Interscalene/Femoral BLK: 4 stimuplex 21 g needle used for position and inplane approach, visualize local anesthetic spread and no vascular puncture identified Injection: neg aspiration of heme Patient Tolerated Procedure: well Complications: none
[2025-01-31] MEDS: ceFAZolin 2,000 mg SDV 2000 MG IVP (12:33)
--- NOTE | 2025-01-31 12:33 | P.OP_ITS ---
Operative Report Date of procedure: January 31, 2025 Pre-op diagnosis: Closed nondisplaced fracture of medial malleolus of left tibia, initial encounter S82.55XA Post-op diagnosis: Closed nondisplaced fracture of medial malleolus of left tibia, initial encounter S82.55XA Post-op findings: None Procedure done: Open reduction internal fixation left medial malleolus. CPT code 96604. Implants: [place] 4 mm headed screw times 50 mm x 2. 4-0 nylon Specimens removed/disposition: None Pathology: None Surgeon: Spencer Sarabia DPM Solar Project Coordination Specialist: Jonnie Estimated blood loss: 1 10 IV fluids: See intraoperative documentation Urine output: None Complications: No complications Brief History: Patient examined and evaluated, findings and treatment options discussed with patient at length. He has a fracture across the medial malleolus extending proximal to the mortise with less than 2 mm of displacement seen on AP oblique and lateral views of left ankle fracture taken 01/27/2025 no other acute osseous injury. He has old age-indeterminate avulsion fracture of the medial malleolus and posterior malleolus. Discussed conservative versus surgical management, patient would like to proceed with surgery as a means of internal fixation and early range of motion and anatomic reduction of the fracture fragment. I reviewed at length with the patient, the risks, potential complications, benefits, alternatives, expectations, and typical outcomes associated with the surgery. The risks and potential complications were explained in detail, including but not limited to infection, wound dehiscence or soft tissue complications, bleeding and hematoma, chronic edema, neuritis or nerve damage producing numbness or chronic pain, CRPS, failure to relieve pain or worsening pain, thick / painful / unsightly scar, limited motion / stiffness, malposition, delayed union, malunion, or nonunion, fracture, reaction to implants, anesthetic complications, venous thromboembolism, and deformity recurrence. I discussed the notion of no regrets with the patient as it pertains to complications and outcomes. The patient seemed to understand the nature of the proposed care and required convalescence. They asked appropriate questions, answered to their satisfaction. They are aware no guarantees can be made as to a satisfactory outcome and they understand there may be other possible unforeseen complications or outcomes not listed here that will be treated accordingly if they arise. There were no written or implied guarantees given to the patient. They gave informed consent to proceed. Patient is currently not taking Plavix. Patient will requires contract graphic designer. Scheduled for outpatient surgery 01/31/2025, will arrive at 10:30 AM Procedure: Under mild sedation the patient was brought to the operating room and remained on the gurney in supine position. A timeout was performed. Anesthesia was then administered by the anesthesia service. Left popliteal block performed per anesthesia service preoperatively. Well-padded pneumatic tourniquet applied to the left high ankle. The left lower extremity was then scrubbed, prepped and draped utilizing normal aseptic technique. The left foot and ankle were exanguinated with an Esmarch bandage and tourniquet inflated to 250 mmHg. Attention was directed to the medial malleolus of the left ankle, skin incision was performed at the medial malleolus with dissection carried down sharply and bluntly to the level of periosteum and the medial malleolus was reduced manually and fixated utilizing standard AO technique with parallel screws these were [place] 4 mm screws cannulated partially-threaded headed screws with excellent bony apposition compression noted and complete reduction of the medial malleolar fracture and congruent ankle mortise appreciated on the AP, oblique and lateral view of the left ankle with intraoperative C arm. The ankle joint had smooth range of motion with 8 degrees of dorsiflexion and 35 degrees of plantarflexion without crepitus at the left ankle intraoperatively. The incision was irrigated with copious amounts of sterile saline solution and closed with 4-0 nylon. The incision was dressed with Xeroform, sterile 4 x 4 gauze, Kerlix and Jonathon wrap followed by application of a cam boot to the left lower extremity. Tourniquet was deflated and a prompt hyperemic response is noted to the distal digits of the left foot. Patient tolerated the procedure and anesthesia well and was transferred to the PACU with vital signs stable and vascular status intact. Following a period of postoperative monitoring he will be discharged home without home care instructions and scheduled follow-up.
--- NOTE | 2025-01-31 12:33 | W.PM.BPON ---
Date of Procedure: 09/24/23 Surgeon: Spencer Sarabia DPM Sterilization Specialist(s): Jonnie Procedure(s) performed: Open reduction internal fixation left medial malleolus fracture. Findings of the procedure(s): None Estimated blood loss: 1 mL Specimen(s) removed: No specimens Post-operative diagnosis: left medial malleolus fracture
[2025-01-31] MEDS: HYDROcodone-acetaminophen 10-325 mg Tablet 1 TAB PO (13:55)
--- NOTE | 2025-01-31 14:08 | P.CONIM_ITS ---
<Statement entered by Evangelist Guadalupe MD - 01/31/25 16:19> Patient was evaluated and cared for in conjunction with an advanced practice practitioner.? I personally examined the patient and reviewed the chart and all pertinent data including imaging, telemetry, and laboratory results.? I discussed the patient in detail with the advanced practice practitioner.? Please see? their note for complete consult note, testing results and agreed upon plan of care for the patient. GENERAL: Patient is alert, awake and oriented x3. NECK: No JVD or carotid bruit HEART: Regular S1 and S2, no murmur LUNGS: Clear to auscultation bilaterally. EXTREMITIES: Lower extremities with out edema bilaterally. No need to resume antiplatelet medications presurgery due to the patient not being on this medication for several months. We do feel that the patient is stable to undergo his ankle surgery at this time. No preoperative cardiac testing needed at this time such as stress testing. Patient without cardiac symptoms. We recommend starting Plavix 600 mg x 24 hours after his ankle surgery followed by 75 mg daily thereafter. The importance of staying on this medication to prevent acute coronary syndrome was discussed with the patient using the art appraiser and sign speech and language tutor. The patient showed understanding. We made sure he was also aware of his upcoming follow-up appointment with Dr. Christopher on February 08 at 2 PM. Providers/Reason For Consult Consulting Physician/Specialty*: Dr Guadalupe, cardiology Reason for Consult*: antiplatelet recommendation Requesting Physician: Dr Cuevas, anesthesiology Attending Physician: Spencer Sarabia DPM Primary Care Provider: Sobeida Mccracken NP History of Present Illness History of Present Illness Cristian Kowalski Jr is a 54 year old male with past medical history of CAD status post stent to the mid LAD and mid to distal RCA 08/17/2024, hypertension, hyperlipidemia. He is also deaf and mute. We spoke with the patient via A/V communication with a instructional design specialist. He was in the outpatient surgery department preparing for ORIF of left medial malleolus due to fracture. It was found that he had not been taking Plavix, or had only been taking it intermittently since his stents were placed in August. Consult was requested for recommendation on antiplatelet in the perioperative period. He has not been having any chest pain or worsening shortness of breath, no lower extremity edema, orthopnea, PND. Review of Systems Const: Denies: fever(s), chills, change in weight, fatigue or diaphoresis Eyes: Denies: change in vision ENMT: Denies: epistaxis Card: Denies: chest pain, palpitations, irregular heart rhythm, edema, syncope, pre-syncope, dyspnea on exertion, orthopnea or leg pain with exertion Resp: Denies: dyspnea, productive cough or wheezing GI: Denies: nausea, vomiting, hematemesis, hematochezia or melena : Denies: hematuria Musc: Reports: extremity pain Timur/Lymph: Denies: easy bruising or easy bleeding Medications/Allergies Home Medications ?Medication ?Instructions ?Recorded ?Confirmed ?Last Taken ?Type fluticasone propionate 110 1 puff inhalation BID #12 g ajit 05/10/24 01/31/25 01/30/25 Rx mcg/actuation HFA aerosol inhaler sitagliptin phosphate 100 mg 100 mg PO DAILY #90 tabs 05/10/24 01/31/25 01/30/25 Rx tablet (Januvia) cholecalciferol (vitamin D3) 50 50 mcg PO DAILY #30 ca ps 06/05/24 01/31/25 01/30/25 Rx mcg (2,000 unit) capsule metoprolol succinate 25 mg 12.5 mg (1/2 x 25 mg) PO DA LUANNE #90 08/03/24 01/31/25 01/30/25 Rx tablet,extended release 24 hr tabs nitroglycerin 0.4 mg sublingual 0.4 mg sublingual Q5M PRN chest 08/03/24 01/31/25 01/30/25 Rx tablet pain #25 tabs atorvastatin 80 mg tablet 80 mg PO DAILY 11/04/24 07/10/0301/09/25 History diclofenac sodium 75 mg 75 mg PO Q12H PRN pain #20 t abs 11/04/24 01/31/25 Unknown Rx tablet,delayed release insulin glargine 100 unit/mL (3 15 unit SUBCUT BID 01/31/25 01/31/25 History mL) subcutaneous pen (Lantus Solostar U-100 Insulin) alcohol swabs (Alcohol Prep Pads) 1 pad topical .COMPL EX #200 ea 01/04/25 01/31/25 01/09/25 Rx aspirin 81 mg tablet,delayed 81 mg PO DAILY 01/10/25 0 01/31/25 01/30/25 History release glipizide 10 mg tablet 10 mg PO DAILY #90 tabs 03/0501/31/25 01/30/25 Rx olmesartan 20 mg tablet 20 mg PO DAILY #90 tabs 03/0501/31/25 Unknown Rx clopidogrel 75 mg tablet (Plavix) 75 mg PO DAILY #90 t abs 01/31/25 Unknown Rx clopidogrel 75 mg tablet (Plavix) 600 mg (8 x 75 mg) P O ONCE #8 tabs 01/31/25 Unknown Rx hydrocodone 10 mg-acetaminophen 1 tab PO Q6H PRN pain 7 days #28 01/31/25 Unkn own Rx 325 mg tablet tabs metformin 1,000 mg tablet 1,000 mg PO DAILY 01/31/25 0 01/31/25 01/30/25 History Allergies Allergy/AdvReac Type Severity Reaction Status Date / Time No Known Allergies Allergy Verified 01/30/25 15:09 Current Medications Generic Name Dose Route Start Last Admin Trade Name Freq PRN Reason Stop Dose Admin Sodium Chloride 1,000 mls @ 30 mls/hr 01/31/25 10:00 01/31/25 11:17 Sodium Chloride 0.9% IV 02/01/25 09:59 30 mls/hr .Q24H FELY Administration PFSH Acute PFSH: Medical History Muteness Bilateral hearing loss Generalized anxiety disorder Mild intermittent asthma Essential hypertension Type 2 diabetes mellitus without complications Surgical History Hx of tonsillectomy 2003 History of cochlear implant lost his device. follows with someone in [facility]. History of surgical procedure on mouth reports history of tongue surgery Family History Mother , etoh Diabetes Social History Smoking and tobacco/nicotine status: former use of tobacco/nicotine Quit status (tobacco/nicotine): has quit using Year quit tobacco: 1998 Former quit date comment: 03/1999 Alcohol intake: former Year of sobriety/quit date alcohol: 2021 Former alcohol use details: He quit 2 years after his mom Substance/Drug Use: never Additional social history: living in [facility] [place] [facility] Marital status: Single Highest education level completed: 12th Grade, No Diploma Current occupational status: disabled Vitals/I&O/Wt Last Vital Signs Temp 97.2 F L 01/31/25 13:20 Pulse 80 01/31/25 13:20 Resp 17 01/31/25 13:20 BP 116/83 01/31/25 13:20 Pulse Ox 97 01/31/25 13:20 O2 Del Method Room Air 01/31/25 13:20 O2 Flow Rate 6 01/31/25 12:44 01/30/25 01/31/25 01/31/25 22:59 06:59 14:59 Intake Total 100 / 100 Output Total Balance 99 / 99 Weight last 48 hrs Weight 230 lb Physical Exam Const: COMMON NORMALS: no acute distress and patient oriented x3 GENERAL APPEARANCE: cooperative and comfortable ORIENTATION/CONSCIOUSNESS: Yes awake, Yes oriented to person, Yes oriented to place and Yes oriented to time Chest: COMMONS NORMALS: normal inspection of the chest and normal palpation of entire chest wall CHEST: Yes Symmetrical chest wall rise Resp: COMMON NORMALS: normal respiratory effort, No retractions, No use of accessory muscles and clear to auscultation bilaterally EFFORT & INSPECTION: Yes symmetric chest movement AUSCULTATION: clear to auscultation bilaterally Cardio: COMMON NORMALS: regular rate, regular rhythm, S1 normal heart sound present, S2 normal heart sound present, No gallops present (Cardio), No clicks present (Cardio), No murmurs present (Cardio) and No rub (Cardio) RATE: regular rate RHYTHM: regular rhythm HEART SOUNDS: S1 normal heart sound present and S2 normal heart sound present PERIPHERAL PULSES: radial pulses present Extremity: COMMON NORMALS: no pedal edema Neuro: COMMON NORMALS: patient oriented x3 and moves all extremities SENSORIUM/ORIENTATION: Yes oriented to person, Yes oriented to place and Yes oriented to time A&P Assessment and plan 1. Essential hypertension: 2. Type 2 diabetes mellitus without complications: 3. Ankle fracture, left: Plan: Since he has not been taking his antiplatelet therapy there is no need for intravenous antiplatelet in the postoperative period. He can proceed with his planned surgical procedure on the ankle today. Through discussion with Dr. Sarabia we are able to restart aspirin and Plavix in 24 hours. He will require loading with Plavix 600 mg one-time, then the following day can continue Plavix 75 mg daily with aspirin 81 mg daily. We had a discussion with him regarding the importance of taking his medications every day, apparently he has been forgetful. He should follow-up with Dr. Christopher in the office on 02/08/2025 as planned. I have sent the loading dose of Plavix to our pharmacy as well as a refill on his maintenance dose of Plavix. Requested meds to beds so he can take this loading dose tomorrow and will not have to go to the pharmacy to pick it up. PDMP PDMP Reviewed: Not Reviewed Coding Level of Care Code Acute Code for [facility] Fwd Diagnoses Essential hypertension I10 Type 2 diabetes mellitus without complications E11.9 Ankle fracture, left S82.892A
--- NOTE | 2025-01-31 16:00 | ANE.PACU2 ---
Inpatient post-anesthesia follow up: Airway intact: Yes Vital signs: Temperature 97.2 F Pulse Rate 80 Respiratory Rate 18 Blood Pressure 123/82 Pulse Oximetry 98 Oxygen Delivery Me thod Room Air Oxygen Flow Rate 6 Fraction of Inspir ed Oxygen Hydration adequate: Yes Nausea and vomiting: No Pain level: 1 Mental status: Baseline
== END 2025-01-31 16:03 | disposition home or self-care (01) ==
PROVIDERS: PCP Nurse Practitioner Family; Visit Provider Podiatrist Foot & Ankle Surgery
PROC: (CPT 27766; principal; 2025-01-31 12:00)
DX: S82.55XA Nondisplaced fracture of medial malleolus of left tibia, initial encounter for closed fracture (principal); V03.00XA Pedestrian on foot injured in collision with car, pick-up truck or van in nontraffic accident, initial encounter; I25.10 Atherosclerotic heart disease of native coronary artery without angina pectoris; Z95.5 Presence of coronary angioplasty implant and graft; E11.9 Type 2 diabetes mellitus without complications; J45.20 Mild intermittent asthma, uncomplicated; F41.9 Anxiety disorder, unspecified; Z87.891 Personal history of nicotine dependence; Z79.4 Long term (current) use of insulin; Z79.82 Long term (current) use of aspirin; I10 Essential (primary) hypertension; E78.5 Hyperlipidemia, unspecified; Z79.84 Long term (current) use of oral hypoglycemic drugs
CPT/HCPCS: 27766; 36416; 73600; 76000; 82962; C1713; J0690; J1100; J2371; J2405; J2704; J2795; J3010; J7030; J9999

== ENCOUNTER 2025-02-22 17:06 | Emergency (ER) | payer MEDICARE, MEDICAID, SELFPAY ==
--- OUTSIDE RECORDS SUMMARY | 2025-02-22 17:14 | XMS_ITS | Clinical Summary ---
Author Organization [facility] Address [address] [place] [address] Care Team Providers Care Data Communications Engineer Name Role Phone Kimberlee Ward DO Primary Care Provider [phone] Allergies No known active allergies Medications peg 400/hypromellose/ glycerin (EYE DROP TEARS OP) by Ophthalmic route. Active montelukast (SINGULAIR) 10 mg tabletIndications :Mild intermittent asthma without complication Take 1 Tablet (10 mg) by mouth late in the day. 90 Tablet 3 9 Active carBAMazepine (TEGretol) 200 mg tabletIndications :Bipolar disorder, in partial remission, most recent episode mixed ([facility]) Take 1 Tablet (200 mg) by [...] complication, without long-term current use of insulin ([facility]) Take 1 Tablet (100 mg) by [...] complication, without long-term current use of insulin ([facility]) Check blood sugars TID. Please provide strips and lancets as well that are covered by insurance. 1 Kit 1 Active blood sugar diagnostic (Blood Glucose Test) StripIndications: Type 2 diabetes mellitus without complication, without long-term current use of insulin ([facility]) Check blood sugar daily 100 Strip 6 1 Active metFORMIN (GLUCOPHAGE) 1,000 mg tabletIndications :Type 2 diabetes mellitus without complication, without long-term current use of insulin ([facility]) TAKE 1 TABLET BY MOUTH 2 [...] Due INFLUENZA VACCINE QUADRIVALENT [address] [facility] 08/2019 INFLUENZA VACCINE QUADRIVALENT [address] [facility] ,03/09/2018 Social History Tobacco Use [...] Respiratory Rate 18 08/12/2020 10:0 9 AM RN NEW GRADUATE 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 95% 11/11/2020 9:18 AM CDT [...] RETINAL EXAM 08/04/2022, 03/24/2021, 09/18/2020 [place] Preventative Visit/Annual Wellness Visit 07/12/2024 04/09/2020 INFLUENZA VACCINE (#1) 2025 0, 03/13/2020, 03/09/2018 Procedures Procedure Name Priority Date/Time Associated Diagnosis Comments LIPID PANEL Routine 11/11/2020 9:57 AM CDT Type 2 diabetes mellitus without complication, without long-term current use of insulin ([facility]) HEMOGLOBIN A1C Routine 11/11/2020 9:57 AM CDT Type 2 diabetes mellitus without complication, without long-term current use of insulin ([facility]) DIABETES EYE EXAM Routine 09/18/2020 MICROALBUMIN/CREATIN INE RATIO, RANDOM UR Routine 10/12/2019 from Last 3 Months or Most Recently Relevant to Health Maintenance Results * (ABNORMAL) HEMOGLOBIN A1C (11/11/2020 9:57 AM CDT) HEMOGLOBIN A1C 10.9(H) See Comment % 11/11/2020 8:53 PM CDT [facility] EST. AVG GLUCOSE, A1C 266 mg/dL 11/11/2020 8:53 PM CDT [facility] Blood Venipuncture / Unknown 11/11/2020 9:57 AM CDT 11/11/2020 8:19 PM CDT Narrative [facility] - 11/11/2020 8:53 PM CDT HGB A1C INTERPRETATION NORMAL: <5.7% PRE-DIABETES: 5.7 - 6.4% DIABETES: 6.5% OR GREATER Falsely low A1C measurements can occur when: 1. Anemia and/or hemolytic anemia is present. 2. Hemoglobin variants present. 3. Renal failure. 4. Transfusion of blood product in the last 120 days. We recommend ordering a fructosamine test([id number]) to more accurately assess glycemic status if any of the above conditions are present. us Kaila BOUDREAUXP CHEMISTRY ORDERABLES Final Re sult Performing Organization Address [facility]/ZIP Co de Phone Number [facility] CLIA# [id number] [address] [place] [address] * LIPID PANEL (11/11/2020 9:57 AM CDT) CHOLESTEROL 151 <200 mg/dL 11/11/2020 9:19 PM CDT [facility] TRIGLYCERIDE 115 <150 mg/dL 11/11/2020 9:19 PM CDT [facility] HDL 46 40 - 59 mg/dL 11/11/2020 9:19 PM CDT [facility] LDL CALCULATED 82 <100 mg/dL 11/11/2020 9:19 PM CDT [facility] NON-HDL CHOLESTEROL 105 <130 mg/dL 11/11/2020 9:19 PM CDT [facility] Blood Venipuncture / Unknown 11/11/2020 9:57 AM CDT 11/11/2020 8:18 PM CDT Narrative [facility] - 11/11/2020 9:19 PM [...] for Lipid Panels (NCEP/AMA) . Kaila Franz [facility] CHEMISTRY ORDERABLES Final Re sult Performing Organization Address City/[facility]/ZIP Co de Phone Number [facility] CLIA# [id number] [address] [place] [address] * DIABETES EYE EXAM (09/18/2020) us Abstract [...] Relevant to Health Maintenance Insurance MEDICAID [facility] Care Teams Data Communications Engineer Relationship Specialty Start Date End Date Kimberlee Ward DO [address] [place] [id number] PCP - General Family Practice 02/01/19
[2025-02-22 17:35] VITALS: BP 99/62; PULSE 78; RESP 16; TEMP 36.8; O2SAT 99; BMI 33.4
--- NOTE | 2025-02-22 18:27 | XRR_ITS ---
PROCEDURE INFORMATION: Exam: XR Left Ankle Exam date and time: 02/22/2025 6:47 PM Age: 54 years old Clinical indication: Pain; Ankle; Left; Prior surgery; Surgery date: 3-7 days post-operative; Additional info: Pain post op TECHNIQUE: Imaging protocol: Radiologic exam of the left ankle. Views: 3 or more views. COMPARISON: CR (LOW EXM, ) 01/27/2025 5:54 PM FINDINGS: Bones/joints: Interval placement of 2 medial malleolar screws . Fracture fragments at medial malleolus are in anatomic alignment. There is interval minimal change at the medial cortex of medial malleolus with slight discontinuity or erosive change in close proximity to the screw heads on the AP view. Otherwise, no interval bony change. Soft tissues: Mild subcutaneous edema. XR/XR ankle LT min 3V* [id number] IMPRESSION: Minimal bony changes in close proximity to the newly placed medial malleolar screws raising question of postoperative changes or infection.
--- NOTE | 2025-02-22 19:08 | PC.NURSE ---
Pt foot boot removed and assessed by Reji, this nurse redressed pt's ankle with 3in shanda wrap and placed back in boot as previously was. Pt tolerated well.
[2025-02-22] MEDS: HYDROcodone-acetaminophen 5-325 mg Tablet 1 TAB PO (19:22)
[2025-02-22] MEDS: HYDROcodone-acetaminophen 5-325 mg Tablet 2 TAB PO (20:56)
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
== END 2025-02-22 20:58 | disposition home or self-care (01) ==
PROVIDERS: Emergency Provider Physician Assistant; PCP Nurse Practitioner Family
DX: G89.18 Other acute postprocedural pain (principal); Z79.02 Long term (current) use of antithrombotics/antiplatelets; Z79.4 Long term (current) use of insulin; Z79.82 Long term (current) use of aspirin; Z79.84 Long term (current) use of oral hypoglycemic drugs; Z87.891 Personal history of nicotine dependence; E11.9 Type 2 diabetes mellitus without complications; I10 Essential (primary) hypertension; Z98.890 Other specified postprocedural states
CPT/HCPCS: 73610; 99283; J9999

== ENCOUNTER → 2025-02-28 10:57 | Outpatient (BNVA) | payer MEDICARE, MEDICAID, SELFPAY | PROVIDERS: PCP Nurse Practitioner Family; Visit Provider Family Medicine | DX: Z13.6 Encounter for screening for cardiovascular disorders (principal); E11.9 Type 2 diabetes mellitus without complications; Z51.81 Encounter for therapeutic drug level monitoring | CPT/HCPCS: 80053; 80061; 83036; 85025 ==

== ENCOUNTER 2025-03-01 14:12 | Observation (INO) | payer MEDICARE, MEDICAID, SELFPAY ==
[2025-03-01] VITALS (9 sets, daily range): BP systolic 67–124; BP diastolic 39–72; PULSE 68–80; RESP 16–18; O2SAT 97–100
--- NOTE | 2025-03-01 14:16 | ECG_ITS ---
[facility] Test Date: 2025-03-01 Pat Name: Cristian Kowalski Department: Room: 112 Gender: Male Inspector Barrel: : 1970 Requested By: Bri Mccoy Order Number: [id number] Fierro MD: Walter Rankin M.D. Measurements Intervals [place] Rate: 69 P: 54 FL: 155 QRS: -9 QRSD: 88 T: 12 QT: 442 QTc: 474 Interpretive Statements SINUS RHYTHM LOW QRS VOLTAGE IN PRECORDIAL LEADS [QRS DEFLECTION < 1.0 mV IN CHEST LEADS] PROLONGED QT INTERVAL Compared to ECG 01/10/2025 11:07:19 Prolonged QT interval now present Sinus bradycardia no longer present Myocardial infarct finding no longer present Electronically Signed On 03-03-2025 08:45:09 CDT by Walter Rankin M.D. [email or web address]
--- NOTE | 2025-03-01 14:17 | ED_ITS ---
HPI - General Adult 2 General: Chief complaint: General Medical Stated complaint: low blood pressure Time Seen by Provider: 03/01/25 14:14 History of Present Illness: 54-year-old man with a history of being mute and deaf, homeless, anxiety, hypertension and type 2 diabetes who presents to the emergency room after there was a rapid response called to podiatry clinic. He had had surgery on his ankle about a month ago and had been lost to follow-up and had showed up today and when he was there he became very weak and was found to have very low blood pressure and so he was sent to the emergency room. He was family hypotensive on presentation with a blood pressure of 67/39. Related Data Home Medications ?Medication ?Instructions ?Recorded ?Confirmed insulin glargine 100 unit/mL (3 15 unit SUBCUT BID 03/01/25 mL) subcutaneous pen (Lantus Solostar U-100 Insulin) aspirin 81 mg tablet,delayed 81 mg PO DAILY 01/10/25 0 03/01/25 release Previous Rx's ?Medication ?Instructions ?Recorded fluticasone propionate 110 1 puff inhalation BID #12 g ajit 05/10/24 mcg/actuation HFA aerosol inhaler nitroglycerin 0.4 mg sublingual 0.4 mg sublingual Q5M PRN chest 08/03/24 tablet pain #25 tabs diclofenac sodium 75 mg 75 mg PO Q12H PRN pain #20 t abs 11/04/24 tablet,delayed release alcohol swabs (Alcohol Prep Pads) 1 pad topical .COMPL EX #200 ea 01/04/25 atorvastatin 80 mg tablet 80 mg PO DAILY #90 tabs 02/10 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 sensor (Dexcom G6 #3 ea 02/28/25 Sensor device) 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 transmitter (Dexcom #1 ea 02/28/25 G6 Transmitter device) 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,senior software developer,cont #1 ea 02/28/25 (Dexcom G6 Cloud Solutions Architect) clopidogrel 75 mg tablet (Plavix) 75 mg PO DAILY #90 t abs 02/28/25 glipizide 10 mg tablet 10 mg PO DAILY #90 tabs 02/10 metformin 1,000 mg tablet 1,000 mg PO DAILY #180 tabs 02/28/25 metoprolol succinate 25 mg 25 mg PO DAILY #90 tabs tablet,extended release 24 hr olmesartan 20 mg tablet 20 mg PO DAILY #90 tabs 02/10 sitagliptin phosphate 100 mg 100 mg PO DAILY #90 tabs 02/28/25 tablet (Januvia) Allergies Allergy/AdvReac Type Severity Reaction Status Date / Time No Known Allergies Allergy Verified 03/01/25 13:54 Review of Systems 2 Narrative: Constitutional symptoms: Negative except as documented in HPI. Skin symptoms: Negative except as documented in HPI. Eye symptoms: Negative except as documented in HPI. ENMT symptoms: Negative except as documented in HPI. Respiratory symptoms: Negative except as documented in HPI. Cardiovascular symptoms: Negative except as documented in HPI. Gastrointestinal symptoms: Negative except as documented in HPI. Genitourinary symptoms: Negative except as documented in HPI. Musculoskeletal symptoms: Negative except as documented in HPI. Neurologic symptoms: Negative except as documented in HPI. Psychiatric symptoms: Negative except as documented in HPI. Endocrine symptoms: Negative except as documented in HPI. PFSH ED 2 PFSH: Medical History (Updated 03/01/25 @ 17:02 by Bri Hager MD) Muteness Bilateral hearing loss Generalized anxiety disorder Mild intermittent asthma Essential hypertension Type 2 diabetes mellitus without complications Surgical History Ankle fracture, left With surgical fixation - Sarabia Hx of tonsillectomy 2004 History of cochlear implant lost his device. follows with someone in [facility]. History of surgical procedure on mouth reports history of tongue surgery Family History Mother , etoh Diabetes Social History Smoking and tobacco/nicotine status: former use of tobacco/nicotine Quit status (tobacco/nicotine): has quit using Year quit tobacco: 1998 Former quit date comment: 03/1999 Alcohol intake: former Year of sobriety/quit date alcohol: 2021 Former alcohol use details: He quit 2 years after his mom Substance/Drug Use: never Additional social history: living in homeless intermediate Marital status: Single Highest education level completed: 12th Grade, No Diploma Current occupational status: disabled Physical Exam 2 Narrative: EXAM NARRATIVE: General: Alert, no acute distress. Skin: Warm, dry. Head: Normocephalic, atraumatic. Neck: Supple, trachea midline. Eye: Extraocular movements are intact. Ears, nose, mouth and throat: Dry oral mucosa Cardiovascular: Regular, Normal peripheral perfusion. Respiratory: Lungs are clear to auscultation, respirations are non-labored, breath sounds are equal, Symmetrical chest wall expansion. Gastrointestinal: Soft, Nontender, Non distended Musculoskeletal: Normal ROM, no deformity. Neurological: Alert and oriented, No focal neurological deficit observed. Psychiatric: Cooperative, appropriate mood & affect. Course 2 Vital Signs: Vital signs: Vital Signs Pulse Rate 76 03/01/25 16:31 Respiratory Rate 16 03/01/25 16:31 Blood Pressure 124/67 03/01/25 16:31 Pulse Oximetry 99 03/01/25 16:31 Oxygen Delivery Me thod Room Air 03/01/25 16:31 MDM - General Adult Medical Decision Making Medical decision making: Differential diagnosis for patient presenting with generalized weakness including but not limited to and based on the above HPI, review of systems and physical exam: Sepsis. Dehydration. Renal failure. Electrolyte abnormalities. Anemia. Congestive heart failure. Hypotension. Coronary syndrome. Hepatitis. Cirrhosis. Infections such as pneumonia, urinary tract infection, Tick bourne illness, Cellulitis, Viral infections including influenza and Covid-19. Workup: labwork and lab/exam driven imaging ordered to evaluate, rule in and rule out above pathologies. Chest x-ray: No acute process. No infiltrate. No pneumothorax. This was reviewed and interpreted by myself the emergency room physician. I also reviewed the radiology report. X-ray of the left ankle: Stable ORIF. No change. This was reviewed and interpreted by myself the emergency room physician. I also reviewed the radiology report. Lab Review: Laboratory results were reviewed and interpreted by myself the emergency room physician. No leukocytosis. No anemia. Patient does have acute renal insufficiency with a BUN/creatinine of 26 and 1.5. Baseline troponin is 28. Likely secondary to renal insufficiency. Urinalysis positive for 4+ bacteria 0-5 whites but is nitrate positive. I am treating him as if he is septic but I think this is likely just dehydration. It has been very hot outside and he is homeless. I reviewed the patient's medical record. Reexamination: Patient remained stable. No increased work of breathing. No altered mental status. No focal motor deficits. Consultation: I spoke with Dr. Sarabia who is on-call for podiatry and he evaluated the patient in the emergency room. Says ankle looks fine. No postop issues. Consultation: I spoke with the Dr. Osborne hospitalist on-call who has agreed to admission. Assessment and plan: Possible sepsis Urinary tract infection Dehydration Acute renal insufficiency Hypotension ?Urine has 4+ bacteria and is nitrate positive but it only has 0-6 whites. However given a lactic acidosis and hypotension I am treating him for possible sepsis. Ankle was evaluated by podiatry and no signs of infection there. Chest x-ray is clear for infection. -2.5 L normal saline bolus. Fluid volumes based on ideal body weight. -Broad-spectrum antibiotics were administered. Cefepime given -Sepsis quality measures. -Lactic acid with a reflex was ordered. -Blood cultures were ordered. ?I reevaluated the patient's volume status after sepsis fluids were given. -I discussed the patient with the hospitalist on-call who is admitting the patient. - Discussed findings and plan with patient. Answered any questions. - All laboratory values were reviewed and interpreted personally by myself, the ER physician - All imaging was reviewed and interpreted personally by myself, the ER physician. - Evaluation and treatment of this problem were appropriate in the emergency setting Critical Care: -I spent a total of >35 minutes of critical care time managing the patient, independent of any other practitioner. -The time involved in the performance of separately reportable procedures was not counted towards critical care time. Lab Data 03/01/25 14:20 03/01/25 14:20 Radiology Impressions Chest X-Ray 03/01/25 15:20 IMPRESSION: No acute pathology or significant interval change. Ankle X-Ray 03/01/25 15:38 IMPRESSION: Stable ORIF of medial malleolar fracture. Laboratory Results WBC 9.18 10^3/uL (3.29-11.43) 03/01/25 14:20 RBC 4.62 10^6/uL (3.85-5.65) 03/01/25 14:20 Hgb 13.40 g/dL (11.27-16.99) 03/01/25 14:20 Hct 40.3 % (37-53) 03/01/25 14:20 MCV 87.2 fl (82-101) 03/01/25 14:20 MCH 29.0 pg (27-33) 03/01/25 14:20 MCHC 33.3 g/dL (30-55) 03/01/25 14:20 RDW 13.3 % (12.1-15.1) 03/01/25 14:20 Plt Count 230 10^3/cmm (157-399) 03/01/25 14:20 MPV 10.2 fL (7.4-10.4) 03/01/25 14:20 Neut % (Auto) 68.3 % 03/01/25 14:20 Lymph % (Auto) 18.7 % 03/01/25 14:20 [place] % (Auto) 9.2 % 03/01/25 14:20 Eos % (Auto) 2.4 % 03/01/25 14:20 Baso % (Auto) 1.0 % 03/01/25 14:20 Neut # (Auto) 6.27 10^3/uL (1.8-7.7) 03/01/25 14:20 Lymph # (Auto) 1.7 10^3/uL (0.8-4.8) 03/01/25 14:20 [place] # (Auto) 0.8 10^3/uL (0.2-0.9) 03/01/25 14:20 Eos # (Auto) 0.2 10^3/uL (0.0-0.8) 03/01/25 14:20 Baso # (Auto) 0.1 10^3/uL (0.0-0.1) 03/01/25 14:20 Nucleated RBC % (auto) 0 % 03/01/25 14:20 Nucleated RBCs # 0.0 /100WBC 03/01/25 14:20 ESR 5 mm/hr (0-10) 03/01/25 14:20 Sodium 140 mmol/L (136-145) 03/01/25 14:20 Potassium 4.1 mmol/L (3.5-5.1) 03/01/25 14:20 Chloride 101 mmol/L (98-107) 03/01/25 14:20 Carbon Dioxide 19 mmol/L (22-29) L 03/01/25 14:20 Anion Gap 24.1 (5-19) H 03/01/25 14:20 BUN 26 mg/dL (6-20) H 03/01/25 14:20 Creatinine 1.5 mg/dL (0.7-1.2) H 03/01/25 14:20 GFR Calculation 48.6 mL/min (90-130) L 03/01/25 14:20 Glucose 109 mg/dL (65-115) 03/01/25 14:20 Calculated Osmolality 295 mOsm/kg (285-295) 03/01/25 14:20 Lactic Acid 6.5 mmol/L (0.5-2.2) H* 03/01/25 14:20 Calcium 8.8 mg/dL (8.5-10.5) 03/01/25 14:20 Total Bilirubin 0.4 mg/dL (0.15-1.2) 03/01/25 14:20 AST 20 U/L (0-40) 03/01/25 14:20 ALT 18 U/L (0-41) 03/01/25 14:20 Alkaline Phosphatase 77 U/L (40-130) 03/01/25 14:20 Troponin T Baseline 28 ng/L (0-15) H 03/01/25 14:20 C-Reactive Protein 3.0 mg/L (0.0-4.9) 03/01/25 14:20 Total Protein 6.4 g/dL (6.6-8.7) L 03/01/25 14:20 Albumin 4.1 g/dL (3.5-5.2) 03/01/25 14:20 Globulin 2.3 g/dL (1.3-4.6) 03/01/25 14:20 Procalcitonin 0.08 ng/mL (0-0.5) 03/01/25 14:20 Urine Color Dark yellow (Yellow) A 03/01/25 15:30 Urine Appearance Cloudy (CLEAR) A 03/01/25 15:30 Urine pH 5.0 (5-7) 03/01/25 15:30 Ur Specific [place] 1.018 (1.005-1.030) 03/01/25 15:30 Urine Protein 1+ (Negative) A 03/01/25 15:30 Urine Glucose (UA) Trace (Normal) H 03/01/25 15:30 Urine Ketones Negative (Negative) 03/01/25 15:30 Urine Blood Negative (Negative) 03/01/25 15:30 Urine Nitrate Positive (Negative) A 03/01/25 15:30 Urine Bilirubin Negative (Negative) 03/01/25 15:30 Urine Urobilinogen 0.2 mg/dL (Negative) 03/01/25 15:30 Ur Leukocyte Esterase Negative (Negative) 03/01/25 15:30 Urine RBC 0-2 /hpf (0-2) 03/01/25 15:30 Urine WBC 0-5 /hpf (0-5) 03/01/25 15:30 Ur Squamous Epith Cells 6-10 /hpf (0-5) 03/01/25 15:30 Amorphous Sediment Not Reportable 03/01/25 15:30 Urine Bacteria 4+ /hpf (NONE) H 03/01/25 15:30 Hyaline Casts 86.88 /lpf 03/01/25 15:30 Urine Opiates Screen Negative ng/mL (Negative) 03/01/25 15:30 Ur Barbiturates Screen Negative ng/mL (Negative) 03/01/25 15:30 Ur Phencyclidine Scrn Negative ng/mL (Negative) 03/01/25 15:30 Ur Amphetamines Screen Negative ng/mL (Negative) 03/01/25 15:30 U Benzodiazepines Scrn Negative ng/mL (Negative) 03/01/25 15:30 Urine Cocaine Screen Negative ng/mL (Negative) 03/01/25 15:30 U Marijuana (THC) Screen Negative ng/mL (Negative) 03/01/25 15:30 All radiology interpretation(s) finalized by discharge Discharge Plan Discharge Patient Disposition: Admitted As Inpatient Clinical Impression: Acute hypotension, Acute renal failure, Urinary tract infection, Sepsis, Lactic acidosis Condition: Stable Coding Level of Care Code ED News Assignment Editor for Eugenio Sotne
[2025-03-01 14:28] LABS: Hematocrit 40.3 % (37-53); Hemoglobin 13.40 g/dL (11.27-16.99); Mean Corpuscular HGB Conc 33.3 g/dL (30-55); Mean Corpuscular Hemoglobin 29.0 pg (27-33); Mean Corpuscular Volume 87.2 fl (82-101); Nucleated Red Blood Cells % 0 %; Platelet Count 230 10^3/cmm (157-399); Red Blood Count 4.62 10^6/uL (3.85-5.65); White Blood Count 9.18 10^3/uL (3.29-11.43)
[2025-03-01 14:41] LABS: Troponin(5th) Baseline 28 ng/L (0-15)
[2025-03-01 14:53] LABS: Alanine Aminotransferase 18 U/L (0-41); Albumin Level 4.1 g/dL (3.5-5.2); Alkaline Phosphatase 77 U/L (40-130); Anion Gap 24.1 (5-19); Aspartate Amino Transferase 20 U/L (0-40); Blood Urea Nitrogen 26 mg/dL (6-20); Calcium 8.8 mg/dL (8.5-10.5); Carbon Dioxide 19 mmol/L (22-29); Chloride 101 mmol/L (98-107); Globulin 2.3 g/dL (1.3-4.6); Glucose 109 mg/dL (65-115); Osmolality Calculated 295 mOsm/kg (285-295); Potassium 4.1 mmol/L (3.5-5.1); Sodium 140 mmol/L (136-145); Total Protein 6.4 g/dL (6.6-8.7)
[2025-03-01 14:54] LABS: Lactic Sepsis W/Reflex 6.5 mmol/L (0.5-2.2)
[2025-03-01 15:00] LABS: Procalcitonin 0.08 ng/mL (0-0.5)
[2025-03-01 15:13] LABS: Reflex Lactate Order REFLEX LACTIC ORDERD
--- NOTE | 2025-03-01 15:20 | XRR_ITS ---
PROCEDURE INFORMATION: Exam: XR Chest Exam date and time: 03/01/2025 3:21 PM Age: 54 years old Clinical indication: Other: Weakness TECHNIQUE: Imaging protocol: Radiologic exam of the chest. Views: 1 view. COMPARISON: CR XR chest 1V portable [id number] 01/10/2025 9:36 AM FINDINGS: Lungs: No acute pulmonary pathology. Pleural spaces: No pleural effusion. Heart/Mediastinum: Cardiomediastinal contours within normal limits. Diaphragm: Mildly elevated right hemidiaphragm. Bones/joints: No significant bony pathology. XR/XR chest 1V portable [id number] IMPRESSION: No acute pathology or significant interval change.
--- NOTE | 2025-03-01 15:38 | XRR_ITS ---
PROCEDURE INFORMATION: Exam: XR Left Ankle Exam date and time: 03/01/2025 4:05 PM Age: 54 years old Clinical indication: Screening exam; Postop; Additional info: Post op TECHNIQUE: Imaging protocol: Radiologic exam of the left ankle. Views: 3 or more views. COMPARISON: CR (LOW EXM, ) 02/22/2025 6:47 PM FINDINGS: Bones/joints: Two medial malleolar screws are again seen. Screws traverse a fracture of the medial malleolus which is still visible as a lucency. No evidence of displacement and no evidence of complication. Corticated bony fragments inferior to the medial malleolus again seen. Moderate plantar calcaneal enthesophyte. Calcaneal Achilles insertional enthesophyte. Soft tissues: Interval decrease in medial soft tissue swelling. XR/XR ankle LT min 3V* [id number] IMPRESSION: Stable ORIF of medial malleolar fracture.
--- NOTE | 2025-03-01 15:38 | PM.CONSULT ---
Providers/Reason For Consult Consulting Physician/Specialty*: Spencer Sarabia D.P.M./podiatry Reason for Consult*: Left ankle Primary Care Provider: Sobeida Mccracken NP History of Present Illness History of Present Illness Cristian Kowalski Jr is a 54 year old male with with history of left medial malleolar fracture, patient is hearing impaired and is mute. Utilize design quality engineer for the entire encounter. States that his right ankle is doing well. Sutures were removed when he was in [place]. He is able to bear weight and denies instability or weakness to the left ankle. Review of Systems General: Reports: 10 or more systems reviewed and unremarkable except in HPI and below Const: Denies: fever(s) or chills Eyes: Denies: change in vision Card: Denies: chest pain or palpitations Resp: Denies: dyspnea or productive cough GI: Denies: abdominal pain, nausea or vomiting : Denies: flank pain Musc: Denies: extremity pain or extremity swelling Skin/Breast: Denies: rash Neuro: Denies: numbness in extremities, sensory changes or frequent falls Psych: Denies: suicidal ideation Timur/Lymph: Denies: easy bruising Medications/Allergies Home Medications ?Medication ?Instructions ?Recorded ?Confirmed ?Last Taken ?Type fluticasone propionate 110 1 puff inhalation BID #12 grams 05/10/24 03/01/25 01/30/25 Rx mcg/actuation HFA aerosol inhaler nitroglycerin 0.4 mg sublingual 0.4 mg sublingual Q5M PRN chest 08/03/24 03/01/25 01/30/25 Rx tablet pain #25 tabs insulin glargine 100 unit/mL (3 15 unit SUBCUT BID 11/04/24 03/01/25 01/31/25 History mL) subcutaneous pen (Lantus Solostar U-100 Insulin) alcohol swabs (Alcohol Prep Pads) 1 pad topical .COMPLEX #200 ea 01/04/25 03/01/25 01/09/25 Rx aspirin 81 mg tablet,delayed 81 mg PO DAILY 01/10/25 03/01/25 01/30/25 History release atorvastatin 80 mg tablet 80 mg PO DAILY #90 tabs 02/28/25 03/01/25 Unknown Rx 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 sensor (Dexcom G6 #3 ea 02/28/25 03/01/25 Unknown Rx Sensor device) 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 transmitter (Dexcom #1 ea 02/28/25 03/01/25 Unknown Rx G6 Transmitter device) 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,tanker service attendant,cont #1 ea 02/28/25 03/01/25 Unknown Rx (Dexcom G6 Stage Electrician Helper) clopidogrel 75 mg tablet (Plavix) 75 mg PO DAILY #90 tabs 02/28/25 03/01/25 Unknown Rx metoprolol succinate 25 mg 25 mg PO DAILY #90 tabs 02/28/25 03/01/25 Unknown Rx tablet,extended release 24 hr olmesartan 20 mg tablet 20 mg PO DAILY #90 tabs 02/28/25 03/01/25 Unknown Rx sitagliptin phosphate 100 mg 100 mg PO DAILY #90 tabs 02/28/25 03/01/25 Unknown Rx tablet (Januvia) Allergies Allergy/AdvReac Type Severity Reaction Status Date / Time No Known Allergies Allergy Verified 03/01/25 13:54 Current Medications Generic Name Dose Route Start Last Admin Trade Name Freq PRN Reason Stop Dose Admin Sodium Chloride 1,000 mls @ 999 mls/hr 03/01/25 14:58 03/01/25 15:17 Sodium Chloride 0.9% IV 03/01/25 15:58 999 mls/hr .Q1H1M ONE Administration PFSH Acute PFSH: Medical History (Updated 03/02/25 @ 00:00 by KASSANDRA Leija) CAD (coronary artery disease) Muteness Bilateral hearing loss Generalized anxiety disorder Mild intermittent asthma Essential hypertension Type 2 diabetes mellitus without complications Surgical History (Updated 03/12/25 @ 08:50 by Spencer Sarabia DPM) History of coronary artery stent placement 09/05?KENISHA to mid RCA balloon angioplasty of LAD to D1, distal LAD, Ankle fracture, left With surgical fixation - Hx of tonsillectomy 2003 History of cochlear implant lost his device. follows with someone in [facility]. History of surgical procedure on mouth reports history of tongue surgery Family History Mother , etoh Diabetes Social History Smoking and tobacco/nicotine status: former use of tobacco/nicotine Quit status (tobacco/nicotine): has quit using Year quit tobacco: 1998 Former quit date comment: 03/1999 Alcohol intake: former Year of sobriety/quit date alcohol: 2021 Former alcohol use details: He quit 2 years after his mom Substance/Drug Use: never Additional social history: living in homeless assisted Marital status: Single Highest education level completed: 12th Grade, No Diploma Current occupational status: disabled Vitals/I&O/Wt Last Vital Signs Pulse 80 03/01/25 15:30 Resp 16 03/01/25 15:30 BP 111/65 03/01/25 15:30 Pulse Ox 97 03/01/25 15:30 O2 Del Method Room Air 03/01/25 15:30 03/01/25 03/01/25 03/01/25 06:59 14:59 22:59 Intake Total 1000 / 1000 Balance 1000 / 1000 Physical Exam Narrative: GENERAL: Patient is alert and oriented ?3 and in no acute distress. The following is a focused bilateral lower extremity exam. VASCULAR: Dorsalis pedis and posterior tibial arteries palpable +2. Capillary refill time less than 3 seconds to the distal hallux bilaterally. Calf is supple and nontender proximally and distally. No pedal edema appreciated. Pedal hair growth present. NEUROLOGICAL: Epicritic and protopathic sensations grossly intact to the lower extremities. +2 Achilles tendon reflex noted bilaterally. Negative Tinel sign upon percussion of lower extremity nerves. DERMATOLOGICAL: Well-healed cicatrix right medial malleolus. No open wounds to the lower extremities. MUSCULOSKELETAL: Smooth range of motion left ankle without pain to palpation. No palpable mass along the course of the plantar fascia appreciated. No pain to palpation along the course of the bilateral Achilles tendon. No pain to palpation along the course posterior tibial tendon or peroneal tendons. No pain with [id number] compression of calcaneus, bilaterally. Muscle strength is 5/5 in all 3 cardinal planes pain-free without guarding to the foot and ankle, bilaterally. Data 03/02/25 04:30 03/02/25 04:30 Micro: Microbiology 03/01/25 14:48 Blood Culture - Preliminary Blood SPECIMEN COLLECTED 03/01/25 14:46 Blood Culture - Preliminary Blood SPECIMEN COLLECTED A&P Assessment and plan 1. Closed fracture of left ankle, initial encounter: Plan: X-ray left ankle 3 view shows intact hardware and healed medial malleolar fracture. Advised patient to wear the boot for an additional 2 weeks and then transition to supportive tennis shoe. Patient is in agreements. Denies any other complaints in regards to his lower extremities. PDMP PDMP Reviewed: Not Reviewed Coding Level of Care Code Acute Code for Chg Fwd Diagnoses Closed fracture of left ankle, initial encounter S82.892A Encounter type: initial encounter Fracture type: closed
[2025-03-01 15:48] LABS: Glucose Urine UA Trace (Normal); Nitrate Urine Positive (Negative); Specific Gravity, Urine 1.018 (1.005-1.030)
[2025-03-01 15:53] LABS: PCP Screen Urine Negative (Negative)
[2025-03-01] MEDS: cefepime 2,000 mg SDV 2000 MG IVP (17:14)
[2025-03-01 17:17] LABS: Troponin 5 2HR 21.70 ng/L (0-15)
[2025-03-01 17:18] LABS: Troponin 5 2HR Delta -6.30 ABS# (0-10)
[2025-03-01 17:19] LABS: Lactic Acid level (Lactate) 3.1 mmol/L (0.5-2.2)
--- NOTE | 2025-03-01 17:45 | CTR_ITS ---
PROCEDURE INFORMATION: Exam: CT Abdomen And Pelvis With Contrast Exam date and time: 03/01/2025 6:43 PM Age: 54 years old Clinical indication: Abnormal findings; Abnormal lab test; Other: Gianluca, elevated lactic acid TECHNIQUE: Imaging protocol: Computed tomography of the abdomen and pelvis with contrast. Radiation optimization: All CT scans at this facility use at least one of these dose optimization techniques: automated exposure control; mA and/or kV adjustment per patient size (includes targeted exams where dose is matched to clinical indication); or iterative reconstruction. Contrast material: OMNI 350; Contrast volume: 100 ml; Contrast route: INTRAVENOUS (IV); COMPARISON: CR (CHEST, ) 03/01/2025 3:21 PM RADIATION DOSE METRICS: Total DLP (mGy-cm): 976.16 FINDINGS: Lungs: No significant basilar pulmonary pathology. Coronary arteries: Coronary artery calcifications are present. Liver: No significant liver pathology. Gallbladder and biliary ducts: No significant gallbladder pathology. No biliary dilatation. Pancreas: No significant pancreatic pathology. Spleen: No significant splenic pathology. Adrenal glands: No significant adrenal pathology. Kidneys and ureters: No significant renal pathology. Stomach and bowel: Colonic diverticulosis without evidence of focal inflammatory change. Appendix: Appendix within normal limits. Intraperitoneal space: No ascites. Vasculature: No abdominal aortic aneurysm. Lymph nodes: No evidence of lymphadenopathy. Urinary bladder: Mild urinary bladder wall thickening. Reproductive: No significant prostate pathology. Bones/joints: Mild levocurvature of the lumbar spine. Features of prior spine trauma noted with left lateral compression fracture deformity of the L3 vertebral body and partial bony fusion with L4. Degenerative changes also present in the lumbar spine. There is a mild anterolisthesis of L5 with respect to both L4 and S1 with bilateral pars defects. Marked degenerative change of the lower lumbar spine facet joints. Mild bilateral hip DJD. Soft tissues: Tiny fat containing umbilical hernia. Small fat containing right paramedian ventral hernia. CT/CT abdomen pelvis w con* [id number] IMPRESSION: No acute pathology seen. Multiple minor findings described above including colonic diverticulosis, urinary bladder wall thickening and features of remote spine trauma.
--- NOTE | 2025-03-01 17:47 | PM.HP ---
Providers/Chief Complaint Primary Care Provider: Sobeida Mccracken NP Chief Complaint: low blood pressure History of Present Illness Cristian Kowalski Jr is a 54 year old male with past history of type 2 diabetes mellitus, hypertension, CAD post PCI and balloon angioplasty, hypertension, mute, recently homeless with last echocardiogram showing diastolic dysfunction with a normal EF was sent into the ER from podiatry clinic as a rapid response where he was found to be hypotensive with blood pressures down to 55 systolic. Blood pressures improved after receiving fluid boluses in the ER and currently on examination up to 101 systolics. Patient underwent ORIF of the ankle for traumatic fracture 1 month ago and was seen by podiatry team in the ER. On review of chart it seems patient had seen his PCP Dr. Hollins on 02/28 when he was found to have stable blood pressure stable type 2 diabetes mellitus and did not have any new complaints. Patient was also seen by cardiology team yesterday. Patient is not able to communicate only through writing. He denies any active complaints. States has been noncompliant with his medications total time today morning and started feeling dizzy while being in podiatry office. Denies any nausea, vomiting, headache, chest pain, difficulty in breathing. Review of Systems General: Reports: 10 or more systems reviewed and unremarkable except in HPI and below Const: Denies: fever(s), chills, body aches, change in appetite, change in weight, malaise, night sweats, diaphoresis, change in sleep pattern, daytime sleepiness or snoring Eyes: Denies: change in vision, blurry vision, photophobia, eye discomfort or eye discharge ENMT: Denies: throat pain, enlarged tonsils, hoarseness, mouth pain, oral sores, dry mouth, tinnitus, nasal congestion or post nasal drip Card: Denies: chest pain, palpitations, irregular heart rhythm, edema, swelling of feet/ankles, lightheadedness, syncope, pre-syncope, dyspnea on exertion, orthopnea, leg pain with exertion or acrocyanosis Resp: Denies: dyspnea, productive cough, non-productive cough, wheezing, stridor, pain on inspiration, change in phlegm color, hemoptysis or chest congestion GI: Denies: abdominal pain, nausea, vomiting, hematemesis, coffee ground emesis, dysphagia, heartburn, diarrhea, constipation, bloating, GI cramping, change in bowel habits, pain on defecation, hematochezia or melena : Denies: flank pain, difficulty urinating, dysuria, urinary frequency, urinary urgency, urinary hesitancy, urinary dribbling, difficulty starting urination, change in urine stream, nocturia or hematuria Musc: Denies: neck pain, back pain, extremity pain, joint pain, joint swelling, joint redness, joint stiffness or limited range of motion Neuro: Denies: headache(s), numbness in extremities, weakness in extremities, sensory changes, lack of coordination, difficulty walking, frequent falls, dizziness, vertigo, confusion, Slurred speech present, difficulty communicating thoughts or seizure-like activity Psych: Denies: anxiety, depression, mood swings, panic attacks, hopelessness or irritability Endo: Denies: polyuria, polydipsia, tired all the time, cold intolerance, excessive sweating, flushing or heat intolerance Timur/Lymph: Denies: easy bruising or easy bleeding All/Imm: Denies: tongue swelling, facial swelling or acute wheezing Medications/Allergies Home Medications ?Medication ?Instructions ?Recorded ?Confirmed ?Last Taken ?Type fluticasone propionate 110 1 puff inhalation BID #12 grams 05/10/24 03/01/25 01/30/25 Rx mcg/actuation HFA aerosol inhaler nitroglycerin 0.4 mg sublingual 0.4 mg sublingual Q5M PRN chest 08/03/24 03/01/25 01/30/25 Rx tablet pain #25 tabs insulin glargine 100 unit/mL (3 15 unit SUBCUT BID 11/04/24 03/01/25 01/31/25 History mL) subcutaneous pen (Lantus Solostar U-100 Insulin) alcohol swabs (Alcohol Prep Pads) 1 pad topical .COMPLEX #200 ea 01/04/25 03/01/25 01/09/25 Rx aspirin 81 mg tablet,delayed 81 mg PO DAILY 01/10/25 03/01/25 01/30/25 History release atorvastatin 80 mg tablet 80 mg PO DAILY #90 tabs 02/28/25 03/01/25 Unknown Rx 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 sensor (Dexcom G6 #3 ea 02/28/25 03/01/25 Unknown Rx Sensor device) 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 transmitter (Dexcom #1 ea 02/28/25 03/01/25 Unknown Rx G6 Transmitter device) 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,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,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 02/28/25 03/01/25 Unknown Rx (Dexcom G6 Front Facer) clopidogrel 75 mg tablet (Plavix) 75 mg PO DAILY #90 tabs 02/28/25 03/01/25 Unknown Rx metoprolol succinate 25 mg 25 mg PO DAILY #90 tabs 02/28/25 03/01/25 Unknown Rx tablet,extended release 24 hr olmesartan 20 mg tablet 20 mg PO DAILY #90 tabs 02/28/25 03/01/25 Unknown Rx sitagliptin phosphate 100 mg 100 mg PO DAILY #90 tabs 02/28/25 03/01/25 Unknown Rx tablet (Januvia) Allergies Allergy/AdvReac Type Severity Reaction Status Date / Time No Known Allergies Allergy Verified 03/01/25 13:54 PFSH Acute PFSH: Medical History (Updated 03/02/25 @ 00:00 by KASSANDRA Leija) CAD (coronary artery disease) Muteness Bilateral hearing loss Generalized anxiety disorder Mild intermittent asthma Essential hypertension Type 2 diabetes mellitus without complications Surgical History (Updated 03/01/25 @ 17:51 by Arnaud Osborne MD) History of coronary artery stent placement 09/05?KENISHA to mid RCA balloon angioplasty of LAD to D1, distal LAD, Ankle fracture, left With surgical fixation - [place] Hx of tonsillectomy 2003 History of cochlear implant lost his device. follows with someone in [facility]. History of surgical procedure on mouth reports history of tongue surgery Family History Mother , etoh Diabetes Social History Smoking and tobacco/nicotine status: former use of tobacco/nicotine Quit status (tobacco/nicotine): has quit using Year quit tobacco: 1998 Former quit date comment: 03/1999 Alcohol intake: former Year of sobriety/quit date alcohol: 2021 Former alcohol use details: He quit 2 years after his mom Substance/Drug Use: never Additional social history: living in homeless long-term Marital status: Single Highest education level completed: 12th Grade, No Diploma Current occupational status: disabled Vitals/I&O/Wt Last Vital Signs Pulse 76 03/01/25 16:31 Resp 16 08/21/25 16:31 BP 124/67 03/01/25 16:31 Pulse Ox 99 03/01/25 16:31 O2 Del Method Room Air 03/01/25 16:31 03/01/25 03/01/25 03/01/25 06:59 14:59 22:59 Intake Total 2500 / 2500 Balance 2500 / 2499 Physical Exam Narrative: General: No acute distress, AO x3 HEENT: PERRLA, pupils bilaterally equal and reactive Chest: Normal vesicular breath sounds, no added sounds, equal good air entry bilaterally CVS: S1-S2 regular, no murmurs, no tachycardia, no gallops, no rubs Abdomen: Soft, nontender, no organomegaly, bowel sounds present Neuro: No focal deficits, no facial deformity, AO x3, power 5/5 in all limbs Data 03/02/25 04:30 03/02/25 04:30 Micro: Microbiology 03/01/25 14:48 Blood Culture - Preliminary Blood SPECIMEN COLLECTED 03/01/25 14:46 Blood Culture - Preliminary Blood SPECIMEN COLLECTED A&P Assessment and plan 1. Acute renal failure: Most likely in setting of dehydration or heat exhaustion. Cannot rule out in setting of sepsis. Patient recently homeless. Also supposed to be on ARB's and metformin at home. Urinalysis, urine tox, urine creatinine, CPK. Strict input of charting, daily weights. Finish sepsis bolus. Continue NS at 75 cc/h. Monitor BMP daily. Monitor electrolytes. Currently anion gap metabolic acidosis most likely in setting of CHRISTINA and lactic acidosis. Check CT abdomen pelvis without contrast to rule out obstructive nephropathy 2. Lactic acidosis: Monitor. Repeat in AM. IV fluid as above. 3. Urinary tract infection: UA consistent with some features of UTI. Cannot gather complete history from patient given patient being mute. Follow-up blood culture, urine culture. Empirically start on IV Zosyn. 4. Sepsis: SIRS: Tachycardic, Febrile, Leukocytosis Source: Dog bite/cellulitis End organ damage: Acute infectious encephalopathy Lactic acid within normal limits Patient did not receive full 30 mL/kg BW as to not further worsen edema of RUE d/t risk of compartment syndrome Monitor blood pressures. Keep mean artery pressure 65 mmHg. Blood culture, urine culture, MRSA swab, procalcitonin, urine Legionella, bacterial antigen. De-escalate antibiotics as per culture results. 5. High anion gap metabolic acidosis: 6. Essential hypertension: Goal blood pressure less than 140/90 mmHg . Patient hypotensive on presentation to the ER. Hold off on home dose of metoprolol, olmesartan. 7. Acute hypotension: 8. CAD (coronary artery disease): Denies any active chest pain. Troponins cycled in 2 hours so far negative. Continue to monitor. Continue with aspirin, statin. Check echocardiogram. Appreciate recent A1c, lipid panel. 9. History of coronary artery stent placement: 10. Type 2 diabetes mellitus without complications: Recent A1c of 7.9. Continue with home dose of Lantus 15 units twice daily. Hold off on OHA. Sliding scale at low-dose protocol. 11. Muteness: 12. Bilateral hearing loss: Plan: Full code Carb consistent diet Lovenox for DVT prophylaxis Protonix for PUD prophylaxis PDMP PDMP Reviewed: Not Reviewed Attestations Medical Necessity Statement*: [place] for more than 2 midnights for management of acute kidney injury, anion gap metabolic acidosis in setting of elevated lactate, concern for UTI, sepsis Diagnoses Acute renal failure N17.9 Lactic acidosis E87.20 Urinary tract infection N39.0 Sepsis A41.9 High anion gap metabolic acidosis E87.29 Essential hypertension I10 Acute hypotension I95.9 CAD (coronary artery disease) I25.10 History of coronary artery stent placement Z95.5 Type 2 diabetes mellitus without complications E11.9 Muteness R47.01 Bilateral hearing loss H91.93
[2025-03-01 18:29] LABS: Potassium, Radom Urine 47 mmol/L; Urine Random Chloride 36 mmol/L; Urine Random Sodium 32 mmol/L
[2025-03-01 18:43] LABS: Procalcitonin 0.08 ng/mL (0-0.5)
[2025-03-01] MEDS: iohexol 350 mg/mL 500 mL Btl (per mL) IV (18:46)
--- NOTE | 2025-03-01 20:16 | ECG_ITS ---
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 Measurements Intervals Tarrs Rate: 66 P: 60 OK: 163 QRS: -17 QRSD: 86 T: 22 QT: 419 QTc: 439 Interpretive Statements SINUS RHYTHM LOW QRS VOLTAGE IN PRECORDIAL LEADS [QRS DEFLECTION < 1.0 mV IN CHEST LEADS] Compared to ECG 03/01/2025 14:19:40 Prolonged QT interval no longer present Electronically Signed On 03-03-2025 09:40:12 CDT by Walter Rankin M.D. [email or web address]
[2025-03-01 20:27] LABS: Troponin 5 6HR 18.64 ng/L (0-15)
[2025-03-01 20:30] LABS: Troponin 5 6HR Delta -9.36 ng/L (0-12)
--- NOTE | 2025-03-01 20:50 | USCV_ITS ---
Cristian Kowalski Age: 54 Gender: M : 1970 Exam Date: 03/01/2025 22:08 Ordering Phys: Arnaud Osborne MD Technologist: JAMIR Exam Location: [facility] [place] Indication: sepsis, hx CAD s/p PCI, DM2, HTN BP: 113 / 72 HR: 63 Rhythm: Sinus Technical Quality: Adequate MEASUREMENTS (Male / Female) Normal Values 2D ECHO LV Diastolic Diameter PLAX 4.2 cm 4.2 - 5.9 / 3.9 - 5.3 cm IVS Diastolic Thickness 1.9 cm 0.6 - 1.0 / 0.6 - 0.9 cm IVS Systolic Thickness 2.2 cm LVPW Diastolic Thickness 1.3 cm 0.6 - 1.0 / 0.6 - 0.9 cm LVPW Systolic Thickness 1.9 cm LVOT Diameter 2.0 cm LV Ejection Fraction 2D Teich 66.4 % LV Ejection Fraction MOD 4C 57.6 % LV Ejection Fraction MOD 2C 63.4 % LV Ejection Fraction 2C AL 64.7 % LA Diameter 3.5 cm Aorta at Sinotubular Diameter 2.9 cm IVC Diameter 1.4 cm M-MODE LA Ao Ratio MM 1.4 AV Cusp Separation MM 1.9 cm DOPPLER AV Peak Velocity 146.0 cm/s LVOT Peak Velocity 141.0 cm/s AV Area Cont Eq vti 3.2 cm squared AV Area Cont Eq pk 3.0 cm squared MV Peak Velocity 96.0 cm/s MV Area PHT 2.8 cm squared Mitral E to A Ratio 1.0 TR Peak Velocity 192.0 cm/s TR Peak Gradient 14.7 mmHg TV Peak E Velocity 55.0 cm/s PV Peak Velocity 109.0 cm/s FINDINGS Left Ventricle Normal left ventricular size, systolic function and wall thickness, with no regional wall motion abnormalities. Left ventricular ejection fraction is estimated at 60%. Normal diastolic function. Right Ventricle The right ventricle is normal in size and function. Right Atrium The right atrium is normal in size. Left Atrium Mildly increased left atrial size. Mitral Valve Structurally normal mitral valve. No mitral valve stenosis. Mild mitral valve regurgitation. Aortic Valve Structurally normal aortic valve without significant sclerosis or stenosis. There is no aortic regurgitation. Tricuspid Valve Structurally normal tricuspid valve without significant stenosis or regurgitation. Pulmonary artery systolic pressure is normal. Pulmonic Valve Structurally normal pulmonic valve without significant stenosis. There is no pulmonic regurgitation. Pericardium Normal pericardium without effusion. Aorta Normal ascending aorta dimension. IVC The inferior vena cava appears normal. CONCLUSIONS Normal left ventricular size, systolic function and wall thickness, with no regional wall motion abnormalities. Left ventricular ejection fraction is estimated at 60%. Normal diastolic function. Structurally normal mitral valve. No mitral valve stenosis. Mild mitral valve regurgitation. There is no pericardial effusion. Right atrial pressure is around 5 mm of mercury. Deon Christopher MD (Electronically Signed) Final Date: 02 March 2025 11:29 S
[2025-03-01 21:34] LABS: Thyroid Stimulating Hormone 3.99 uIU/mL (0.27-4.20)
--- NOTE | 2025-03-01 21:37 | PHA.VACGOAL ---
Vancomycin Goal - Goal Vancomycin Goal:: 15-20 mg/L Vancomycin Indication:: Other (SEPSIS) - Therapy Current therapy:: Pip/Tazo Day of therpy:: Day []of [] . Actual body weight (kg): 221 lb 12.8 oz - Data Labs: WBC 9.18 10^3/uL (3.29-11.43) 03/01/25 14:20 RBC 4.62 10^6/uL (3.85-5.65) 03/01/25 14:20 Hgb 13.40 g/dL (11.27-16.99) 03/01/25 14:20 Hct 40.3 % (37-53) 03/01/25 14:20 MCV 87.2 fl (82-101) 03/01/25 14:20 MCH 29.0 pg (27-33) 03/01/25 14:20 MCHC 33.3 g/dL (30-55) 03/01/25 14:20 RDW 13.3 % (12.1-15.1) 03/01/25 14:20 Sodium 140 mmol/L (136-145) 03/01/25 14:20 Potassium 4.1 mmol/L (3.5-5.1) 03/01/25 14:20 Chloride 101 mmol/L (98-107) 03/01/25 14:20 Carbon Dioxide 19 mmol/L (22-29) L 03/01/25 14:20 Anion Gap 24.1 (5-19) H 03/01/25 14:20 BUN 26 mg/dL (6-20) H 03/01/25 14:20 Creatinine 1.5 mg/dL (0.7-1.2) H 03/01/25 14:20 GFR Calculation 48.6 mL/min (90-130) L 03/01/25 14:20 Last dialysis session:: N/A Regimen:: ENTERED MAINTENANCE DOSE OF 1000 MG Q12H PER PROTOCOL WITH CALCULATED CRCL OF 53.8 ML/MIN. WILL OBTAIN TROUGH ONCE STEADY STATE HAS BEEN REACHED. Rationale:: Medications Vancomycin HCl / Sodium (Chloride) 250 mls @ 0 mls/hr [id number] PROTOCOL FELY; Protocol Piperacillin Sod/Tazobactam (Sod / Sodium Chloride) 50 mls @ 0 mls/hr [id number] CONT FELY; Protocol Discontinued Medications Cefepime HCl (Cefepime 2,000 Mg Sdv) 2,000 mg IVP ONCE STA; Protocol Stop: 03/01/25 16:51 Last Admin: 03/01/25 17:14 Dose: 2,000 mg Microbiology 03/01/25 14:48 Blood Blood Culture - Preliminary SPECIMEN COLLECTED 03/01/25 14:46 Blood Blood Culture - Preliminary SPECIMEN COLLECTED Problems (Last Updated 03/01/25 @ 17:51 by Arnaud Osborne MD) Acute renal failure (Acute) Sepsis (Acute) PATIENT PRESENTING WITH SEPSIS AND UTI. PATIENT HAS ELEVATED SCR OF OF 1.5 MG/DL AND CRCL OF 53.8 ML/MIN. WILL CONTINUE TO MONITOR DAILY AND EVALUATE DOSING. SCHEDULED TROUGH PRIOR TO 4TH DOSE.
[2025-03-01] MEDS: pantoprazole 40 mg SDV IVP (22:45)
[2025-03-01] MEDS: heparin 5,000 unit/mL INJ 1 mL 5000 UNIT SUBCUT (22:45)
[2025-03-02 00:28] VITALS: BP 98/55; PULSE 62; RESP 2
[2025-03-02] MEDS: piperacillin-tazobactam 3.375 GM in sodium chloride 0.9% (plus) 50 ML IV ×2 (00:43→05:29)
[2025-03-02 02:11] LABS: Iron 76 ug/dL (59-158); Total Iron Binding Capacity 301 mcg/dl; Unsaturated Iron Binding 225 ug/dL (112-347)
[2025-03-02 02:27] LABS: Vitamin B12 592 pg/mL (232-1245)
[2025-03-02 04:56] LABS: Hematocrit 39.6 % (37-53); Hemoglobin 13.10 g/dL (11.27-16.99); Mean Corpuscular HGB Conc 33.1 g/dL (30-55); Mean Corpuscular Hemoglobin 28.9 pg (27-33); Mean Corpuscular Volume 87.4 fl (82-101); Nucleated Red Blood Cells % 0 %; Platelet Count 196 10^3/cmm (157-399); Red Blood Count 4.53 10^6/uL (3.85-5.65); White Blood Count 9.20 10^3/uL (3.29-11.43)
[2025-03-02 05:22] LABS: Alanine Aminotransferase 14 U/L (0-41); Albumin Level 3.4 g/dL (3.5-5.2); Alkaline Phosphatase 70 U/L (40-130); Anion Gap 13.7 (5-19); Aspartate Amino Transferase 15 U/L (0-40); Blood Urea Nitrogen 20 mg/dL (6-20); Calcium 7.8 mg/dL (8.5-10.5); Carbon Dioxide 23 mmol/L (22-29); Chloride 108 mmol/L (98-107); Creatinine Clr Calc Pharmacy 87.2353; Globulin 2.5 g/dL (1.3-4.6); Glucose 130 mg/dL (65-115); Magnesium 2.1 mg/dL (1.7-2.3); Osmolality Calculated 296 mOsm/kg (285-295); Potassium 3.7 mmol/L (3.5-5.1); Sodium 141 mmol/L (136-145); Total Protein 5.9 g/dL (6.6-8.7)
[2025-03-02 05:23] LABS: Lactic Sepsis W/Reflex 1.7 mmol/L (0.5-2.2)
[2025-03-02 05:26] LABS: Procalcitonin 0.05 ng/mL (0-0.5)
[2025-03-02 06:04] VITALS: BP 110/63; PULSE 68; RESP 11
[2025-03-02 08:00] VITALS: BP 112/61; PULSE 61; RESP 17; TEMP 36.6
[2025-03-02] MEDS: heparin 5,000 unit/mL INJ 1 mL 5000 UNIT SUBCUT (08:34)
--- NOTE | 2025-03-02 10:02 | P.DS_ITS ---
Discharge Providers Date of Admission: 03/01/25 18:19 Date of Discharge: March 02, 2025 Attending Provider at Admission: Arnaud Osborne MD Attending Provider at Discharge: Arnaud Osborne MD Primary Care Provider: Sobeida Mccracken NP Diagnoses at Discharge Discharge Diagnosis 1. Acute renal failure: 2. Lactic acidosis: 3. Urinary tract infection: 4. Sepsis: 5. High anion gap metabolic acidosis: 6. Essential hypertension: 7. Acute hypotension: 8. CAD (coronary artery disease): 9. History of coronary artery stent placement: 10. Type 2 diabetes mellitus without complication, with long-term current use of insulin: 11. Muteness: 12. Bilateral hearing loss, unspecified hearing loss type: Reason for Visit Reason for Visit: low blood pressure Hospital Course Hospital Course Cristian Kowalski Jr is a 54 year old male with past history of type 2 diabetes mellitus, hypertension, CAD post PCI and balloon angioplasty, hypertension, mute, recently homeless with last echocardiogram showing diastolic dysfunction with a normal EF was sent into the ER from podiatry clinic as a rapid response where he was found to be hypotensive with blood pressures down to 55 systolic. Blood pressures improved after receiving fluid boluses in the ER and currently on examination up to 101 systolics. Patient underwent ORIF of the ankle for traumatic fracture 1 month ago and was seen by podiatry team in the ER. On review of chart it seems patient had seen his PCP Dr. Hollins on 02/28 when he was found to have stable blood pressure stable type 2 diabetes mellitus and did not have any new complaints. Patient was also seen by cardiology team yesterday. Patient was admitted to hospital for evaluation and management. Troponin cycled remained negative. He denied any chest pain. He did not have any episode of fever and no leukocytosis. It is believed his symptoms are most likely in setting of heat exhaustion, dehydration along with noncompliance of medications. He was treated with IV hydration after which his hemodynamics stabilized, blood work remained stable. He has been discharged in hemodynamically stable condition on adjusted medications with advised to take medications regularly and follow-up with a primary care provider onsite appointment. Physical Exam Narrative: General: No acute distress, AO x3 HEENT: PERRLA, pupils bilaterally equal and reactive Chest: Normal vesicular breath sounds, no added sounds, equal good air entry bilaterally CVS: S1-S2 regular, no murmurs, no tachycardia, no gallops, no rubs Abdomen: Soft, nontender, no organomegaly, bowel sounds present Neuro: No focal deficits, no facial deformity, AO x3, power 5/5 in all limbs Discharge Data Studies Completed and Pending Completed Studies During Hospitalization Category Date Time Status CT abdomen pelvis w con* [id number] Stat Cat Scan 03/01/25 17:45 Completed XR ankle LT min 3V* [id number] Stat Exams 03/01/25 15:38 Completed XR chest 1V portable [id number] Stat Exams 03/01/25 15:20 Completed Pending at discharge Category Date Time Status Blood Culture Stat Lab 03/01/25 14:48 Results Complete Blood Count w/Auto AM LABS Lab 03/03/25 04:00 Ordered Complete Blood Count w/Auto AM LABS Lab 03/04/25 04:00 Ordered Comprehensive Metabolic Panel AM LABS Lab 03/03/25 04:00 Ordered Comprehensive Metabolic Panel AM LABS Lab 03/04/25 04:00 Ordered MRSA PCR OZH (swab) Routine Lab 03/01/25 20:50 Uncollected Magnesium AM LABS Lab 03/03/25 04:00 Ordered Magnesium AM LABS Lab 03/04/25 04:00 Ordered Phosphorus AM LABS Lab 03/03/25 04:00 Ordered Phosphorus AM LABS Lab 03/04/25 04:00 Ordered Urine Culture Stat Lab 03/01/25 15:30 Received Vancomycin Trough Timed Lab 03/03/25 09:00 Ordered CV. echo complete* [id number] Routine Ultrasound 03/01/25 20:50 Taken Radiology Impressions Chest X-Ray 03/01/25 15:20 IMPRESSION: No acute pathology or significant interval change. Ankle X-Ray 03/01/25 15:38 IMPRESSION: Stable ORIF of medial malleolar fracture. Abdomen/Pelvis CT 03/01/25 17:45 IMPRESSION: No acute pathology seen. Multiple minor findings described above including colonic diverticulosis, urinary bladder wall thickening and features of remote spine trauma. Laboratory Results WBC 9.20 10^3/uL (3.29-11.43) 03/02/25 04:30 RBC 4.53 10^6/uL (3.85-5.65) 03/02/25 04:30 Hgb 13.10 g/dL (11.27-16.99) 03/02/25 04:30 Hct 39.6 % (37-53) 03/02/25 04:30 MCV 87.4 fl (82-101) 03/02/25 04:30 MCH 28.9 pg (27-33) 03/02/25 04:30 MCHC 33.1 g/dL (30-55) 03/02/25 04:30 RDW 13.6 % (12.1-15.1) 03/02/25 04:30 Plt Count 196 10^3/cmm (157-399) 03/02/25 04:30 MPV 10.3 fL (7.4-10.4) 03/02/25 04:30 Neut % (Auto) 66.4 % 03/02/25 04:30 Lymph % (Auto) 19.8 % 03/02/25 04:30 [place] % (Auto) 9.0 % 03/02/25 04:30 Eos % (Auto) 3.6 % 03/02/25 04:30 Baso % (Auto) 0.9 % 03/02/25 04:30 Neut # (Auto) 6.11 10^3/uL (1.8-7.7) 03/02/25 04:30 Lymph # (Auto) 1.8 10^3/uL (0.8-4.8) 03/02/25 04:30 [place] # (Auto) 0.8 10^3/uL (0.2-0.9) 03/02/25 04:30 Eos # (Auto) 0.3 10^3/uL (0.0-0.8) 03/02/25 04:30 Baso # (Auto) 0.1 10^3/uL (0.0-0.1) 03/02/25 04:30 Nucleated RBC % (auto) 0 % 03/02/25 04:30 Nucleated RBCs # 0.0 /100WBC 03/02/25 04:30 ESR 5 mm/hr (0-10) 03/01/25 14:20 D-Dimer 0.58 ug/mLFEU (0-0.59) 03/01/25 14:20 Sodium 141 mmol/L (136-145) 03/02/25 04:30 Potassium 3.7 mmol/L (3.5-5.1) 03/02/25 04:30 Chloride 108 mmol/L (98-107) H 03/02/25 04:30 Carbon Dioxide 23 mmol/L (22-29) 03/02/25 04:30 Anion Gap 13.7 (5-19) 03/02/25 04:30 BUN 20 mg/dL (6-20) 03/02/25 04:30 Creatinine 1.1 mg/dL (0.7-1.2) 03/02/25 04:30 GFR Calculation 69.5 mL/min (90-130) L 03/02/25 04:30 Glucose 130 mg/dL (65-115) H 03/02/25 04:30 Calculated Osmolality 296 mOsm/kg (285-295) H 03/02/25 04:30 Lactic Acid 1.7 mmol/L (0.5-2.2) 03/02/25 04:30 Lactic Acid (Sepsis) 3.1 mmol/L (0.5-2.2) H 03/01/25 16:21 Calcium 7.8 mg/dL (8.5-10.5) L 03/02/25 04:30 Phosphorus 2.7 mg/dL (2.5-4.5) 03/02/25 04:30 Magnesium 2.1 mg/dL (1.7-2.3) 03/02/25 04:30 Iron 76 ug/dL (59-158) 03/01/25 14:20 TIBC 301 mcg/dl 03/01/25 14:20 % Saturation 25.2 % (20-50) 03/01/25 14:20 Unsat Iron Binding 225 ug/dL (112-347) 03/01/25 14:20 Total Bilirubin 0.3 mg/dL (0.15-1.2) 03/02/25 04:30 AST 15 U/L (0-40) 03/02/25 04:30 ALT 14 U/L (0-41) 03/02/25 04:30 Alkaline Phosphatase 70 U/L (40-130) 03/02/25 04:30 Creatine Kinase 218 U/L (39-308) 03/01/25 14:20 Troponin T Baseline 28 ng/L (0-15) H 03/01/25 14:20 Troponin T 120 Minute 21.70 ng/L (0-15) H 03/01/25 16:21 Delta Troponin T -6.30 ABS# (0-10) L 03/01/25 16:21 Troponin T Hi Sens 6Hr 18.64 ng/L (0-15) H 03/01/25 20:01 Troponin T Hi Sens 6Hr Delta -9.36 ng/L (0-12) L 03/01/25 20:01 C-Reactive Protein 3.0 mg/L (0.0-4.9) 03/01/25 14:20 Total Protein 5.9 g/dL (6.6-8.7) L 03/02/25 04:30 Albumin 3.4 g/dL (3.5-5.2) L 03/02/25 04:30 Globulin 2.5 g/dL (1.3-4.6) 03/02/25 04:30 Vitamin B12 592 pg/mL (232-1245) 03/01/25 14:20 Folate > 20.0 ng/mL (4.5-32.2) 03/02/25 04:30 Procalcitonin 0.05 ng/mL (0-0.5) 03/02/25 04:30 TSH 3.99 uIU/mL (0.27-4.20) 03/01/25 14:20 Urine Color Dark yellow (Yellow) A 03/01/25 15:30 Urine Appearance Cloudy (CLEAR) A 03/01/25 15:30 Urine pH 5.0 (5-7) 03/01/25 15:30 Ur Specific [place] 1.018 (1.005-1.030) 03/01/25 15:30 Urine Protein 1+ (Negative) A 03/01/25 15:30 Urine Glucose (UA) Trace (Normal) H 03/01/25 15:30 Urine Ketones Negative (Negative) 03/01/25 15:30 Urine Blood Negative (Negative) 03/01/25 15:30 Urine Nitrate Positive (Negative) A 03/01/25 15:30 Urine Bilirubin Negative (Negative) 03/01/25 15:30 Urine Urobilinogen 0.2 mg/dL (Negative) 03/01/25 15:30 Ur Leukocyte Esterase Negative (Negative) 03/01/25 15:30 Urine RBC 0-2 /hpf (0-2) 03/01/25 15:30 Urine WBC 0-5 /hpf (0-5) 03/01/25 15:30 Ur Squamous Epith Cells 6-10 /hpf (0-5) 03/01/25 15:30 Amorphous Sediment Not Reportable 03/01/25 15:30 Urine Bacteria 4+ /hpf (NONE) H 03/01/25 15:30 Hyaline Casts 86.88 /lpf 03/01/25 15:30 Ur Random Sodium 32 mmol/L 03/01/25 15:30 Ur Random Potassium 47 mmol/L 03/01/25 15:30 Ur Random Chloride 36 mmol/L 03/01/25 15:30 Urine Creatinine 97 mg/dL (39-259) 03/01/25 15:30 Urine Opiates Screen Negative ng/mL (Negative) 03/01/25 15:30 Ur Barbiturates Screen Negative ng/mL (Negative) 03/01/25 15:30 Ur Phencyclidine Scrn Negative ng/mL (Negative) 03/01/25 15:30 Ur Amphetamines Screen Negative ng/mL (Negative) 03/01/25 15:30 U Benzodiazepines Scrn Negative ng/mL (Negative) 03/01/25 15:30 Urine Cocaine Screen Negative ng/mL (Negative) 03/01/25 15:30 U Marijuana (THC) Screen Negative ng/mL (Negative) 03/01/25 15:30 Vitals Last Vital Signs Temp 97.9 F 03/02/25 08:00 Pulse 61 03/02/25 08:00 Resp 17 03/02/25 08:00 BP 112/61 03/02/25 08:00 Pulse Ox 98 03/01/25 22:55 O2 Del Method Room Air 03/02/25 00:24 FiO2 21 03/01/25 22:55 Discharge Plan Discharge Patient Disposition: Home Condition: Stable Prescriptions: Continued fluticasone propionate 110 mcg/actuation HFA aerosol inhaler 1 puff inhalation BID Qty: 12 11RF nitroglycerin 0.4 mg tablet, sublingual 0.4 mg sublingual Q5M PRN (Reason: chest pain) Qty: 25 2RF Rx Instructions: do not exceed 3 doses per episode atorvastatin 80 mg tablet 80 mg PO DAILY Qty: 90 3RF clopidogrel [Plavix] 75 mg tablet 75 mg PO DAILY Qty: 90 3RF olmesartan 20 mg tablet 20 mg PO DAILY Qty: 90 3RF Januvia 100 mg tablet 100 mg PO DAILY Qty: 90 3RF (DME) Dexcom G6 Sensor Device See Rx Instructions .ROUTE .MEDSUPPLY Qty: 3 6RF Rx Instructions: As directed (DME) Dexcom G6 Dust Handler Misc See Rx Instructions .ROUTE .MEDSUPPLY Qty: 1 0RF Rx Instructions: As directed (DME) Dexcom G6 Transmitter Device See Rx Instructions .ROUTE .MEDSUPPLY Qty: 1 2RF Rx Instructions: As directed metoprolol succinate 25 mg tablet extended release 24 hr 25 mg PO DAILY Qty: 90 3RF Rx Instructions: 02/28/[address] Christopher at afternoon appt. alcohol swabs [Alcohol Prep Pads] Pads, Medicated 1 pad topical .COMPLEX Qty: 200 11RF Rx Instructions: 1 pad topically USE ONE PAD TOPICALLY DIRECTED; USE DIRECTED TO CLEAN SKIN PRIOR TO FINGER STICK OR MEDICATION INJECTION; insulin glargine [Lantus Solostar U-100 Insulin] 100 unit/mL (3 mL) insulin pen 15 unit SUBCUT BID aspirin 81 mg Tablet,Delayed Release (Dr/Ec) 81 mg PO DAILY Discontinued glipizide 10 mg tablet 10 mg PO DAILY Qty: 90 3RF metformin 1,000 mg tablet 1,000 mg PO DAILY Qty: 180 3RF Rx Instructions: TAKE ONE TABLET BY MOUTH TWICE DAILY diclofenac sodium 75 mg tablet,delayed release (DR/EC) 75 mg PO Q12H PRN (Reason: pain) Qty: 20 0RF Discharge Order = DC NOW: Discharge Order (Routine); Ordered 03/02/25 Ordered By: Arnaud Osborne Referrals: [facility] Transport([employer]) [Outside] Referral Note: Call this number and they should be able to assist w/ transportation to doctors appointments and follow ups. You do need to call 3 days in advance to schedule. [facility] [Outside] Referral Note: Please go to [facility] for a walk in assessment, this assessment is so you can obtain a casemanager by having a referral for the [facility] program. Walk In appointments are not scheduled, please be aware there can be wait time. Bring a snack and a drink incase you have a long wait. Sobeida Mccracken NP [Primary Care Provider, Unknown] - 03/09/25 9:00 am Patient Instructions: Coronary Artery Disease (DC), Urinary Tract Infection in Men (DC), Sepsis (DC), Lactic Acidosis (GEN), Opioid Safety, Patient Portal & Gerda Instructions Activity Restrictions/Additional Instructions: Please make sure you take your medications daily. Do not take glipizide anymore. Only take the Lantus as prescribed. If possible check your blood pressure daily at home and her blood pressure diary. Goal blood pressure is less than 140/90 mmHg. Please maintain oral intake of at least 50 to 60 ounces of liquid daily. Follow-up with your primary care provider on set appointment. Discharge Attestations Time Spent in Discharge Care*: greater than 30 min Specific Discharge Activities: educating patient, educating and/or supporting family/caregiver, discussing with pcp/other providers, discussing with piano case and bench assembler/social workers/dc planners, documenting/other paperwork and evaluating patient/reviewing data Quality Metrics Clinical Quality Measures [ No reported AMI, CVA or VTE this stay] Coding Level of Care Code 71832 Total time (in minutes) for Discharge: 65 Diagnoses Acute renal failure N17.9 Lactic acidosis E87.20 Urinary tract infection N39.0 Sepsis A41.9 High anion gap metabolic acidosis E87.29 Essential hypertension I10 Acute hypotension I95.9 CAD (coronary artery disease) I25.10 History of coronary artery stent placement Z95.5 Type 2 diabetes mellitus without complication, with long-term current use of insulin E11.9; Z79.4 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
--- NOTE | 2025-03-02 11:05 | PC.SOCIAL ---
IMM Update pg 2 of IMM Updated and reviewed w/ patient. Copy provided and copy dated, initialed and placed in chart.
[2025-03-02 11:50] VITALS: BP 112/61; PULSE 61; RESP 17; TEMP 36.6; O2SAT 98
[2025-03-02] MEDS: insulin glargine 100 units/1 mL 15 UNIT SUBCUT (11:55)
== END 2025-03-02 14:31 | disposition home or self-care (01) ==
LOC: ER 17:02 → CSU 20:51
PROVIDERS: Podiatrist Foot & Ankle Surgery; Admitting Provider Student in an Organized Health Care Education/Training Program; Emergency Provider Emergency Medicine; PCP Nurse Practitioner Family; Visit Provider Student in an Organized Health Care Education/Training Program
DX: A41.9 Sepsis, unspecified organism (principal); N17.9 Acute kidney failure, unspecified; E87.20 Acidosis, unspecified; N39.0 Urinary tract infection, site not specified; E87.29 Other acidosis; I10 Essential (primary) hypertension; I95.9 Hypotension, unspecified; I25.10 Atherosclerotic heart disease of native coronary artery without angina pectoris; Z95.5 Presence of coronary angioplasty implant and graft; E11.9 Type 2 diabetes mellitus without complications; Z79.4 Long term (current) use of insulin; R47.01 Aphasia; H91.93 Unspecified hearing loss, bilateral; J45.20 Mild intermittent asthma, uncomplicated; Z87.891 Personal history of nicotine dependence
CPT/HCPCS: 36415; 71045; 73610; 74177; 80053; 80306; 81001; 82436; 82550; 82570; 82607; 82746; 83540; 83550; 83605; 83735; 84100; 84133; 84145; 84300; 84443; 84484; 85025; 85378; 85651; 86140; 86403; 87040; 87077; 87086; 87186; 93005; 93306; 94664; 96372; 96374; 99285; G0378; J0692; J1644; J1815; J2470; J2543; J3373; J7030; J7040; J7050; J9999

== ENCOUNTER 2025-03-13 11:06 | Emergency (ER) | payer MEDICARE, MEDICAID, SELFPAY ==
[2025-03-13 11:11] VITALS: BP 115/67; PULSE 98; TEMP 36.7; O2SAT 97
[2025-03-13 11:30] VITALS: BP 104/47; PULSE 91; RESP 16; O2SAT 95
--- NOTE | 2025-03-13 12:28 | W.ED.GENADLT ---
HPI - General Adult General: Chief complaint: Skin/Abscess/Foreign Body Stated complaint: pain in both arms Time Seen by Provider: 03/13/25 11:08 History of Present Illness: Patient is a 54-year-old male with a history of deaf mutism, DM, CAD s/p stenting and balloon angioplasty w/cc of rash on both upper extremities that developed this Wednesday. He states he was doing yard work prior to onset of rash and thinks he was exposed to poison katy. He reports subjective fever and states he's felt a little ill. He's had retrosternal chest pain (has difficulty describing) for one week or more that is not exertional or radiating in nature. Currently patient does not feel short of breath though he has had a cough with production of white sputum. Patient has a history of asthma. Patient states he has been compliant with his medications including his heart medicine. States that he has all medications available to him. He denies any abdominal pain, nausea, vomiting, diarrhea or dysuria. Patient has not experienced any worsening lower extremity swelling. Related Data Home Medications ?Medication ?Instructions ?Recorded ?Confirmed insulin glargine 100 unit/mL (3 15 unit SUBCUT BID 11/04/24 03/13/25 mL) subcutaneous pen (Lantus Solostar U-100 Insulin) aspirin 81 mg tablet,delayed 81 mg PO DAILY 01/10/25 03/13/25 release glipizide 10 mg tablet 10 mg PO DAILY 03/13/25 03/13/25 metformin 1,000 mg tablet 1,000 mg PO BID 03/13/25 03/13/25 Previous Rx's ?Medication ?Instructions ?Recorded fluticasone propionate 110 1 puff inhalation BID #12 grams 05/10/24 mcg/actuation HFA aerosol inhaler nitroglycerin 0.4 mg sublingual 0.4 mg sublingual Q5M PRN chest 08/03/24 tablet pain #25 tabs atorvastatin 80 mg tablet 80 mg PO DAILY #90 tabs 02/28/25 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 sensor (Dexcom G6 #3 ea 02/28/25 Sensor device) 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 transmitter (Dexcom #1 ea 02/28/25 G6 Transmitter device) 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,stock receiver,cont #1 ea 02/28/25 (Dexcom G6 Director Wholesale) clopidogrel 75 mg tablet (Plavix) 75 mg PO DAILY #90 tabs 02/28/25 metoprolol succinate 25 mg 25 mg PO DAILY #90 tabs 02/28/25 tablet,extended release 24 hr olmesartan 20 mg tablet 20 mg PO DAILY #90 tabs 02/28/25 sitagliptin phosphate 100 mg 100 mg PO DAILY #90 tabs 02/28/25 tablet (Januvia) clobetasol 0.05 % topical ointment 1 applic topical BID 2 weeks #60 03/13/25 grams Allergies Allergy/AdvReac Type Severity Reaction Status Date / Time No Known Allergies Allergy Verified 03/13/25 11:18 PFS ED PFS: Medical History (Updated 03/13/25 @ 14:20 by Senait López MD) CAD (coronary artery disease) Muteness Bilateral hearing loss Generalized anxiety disorder Mild intermittent asthma Essential hypertension Type 2 diabetes mellitus without complications Surgical History (Updated 03/12/25 @ 08:50 by Spencer Sarabia DPM) History of coronary artery stent placement 09/05?KENISHA to mid RCA balloon angioplasty of LAD to D1, distal LAD, Ankle fracture, left With surgical fixation - Hx of tonsillectomy 2003 History of cochlear implant lost his device. follows with someone in [facility]. History of surgical procedure on mouth reports history of tongue surgery Family History Mother , etoh Diabetes Social History Smoking and tobacco/nicotine status: former use of tobacco/nicotine Quit status (tobacco/nicotine): has quit using Year quit tobacco: 1998 Former quit date comment: 03/1999 Alcohol intake: former Year of sobriety/quit date alcohol: 2021 Former alcohol use details: He quit 2 years after his mom Substance/Drug Use: never Additional social history: living in homeless senior living Marital status: Single Highest education level completed: 12th Grade, No Diploma Current occupational status: disabled Physical Exam Narrative: EXAM NARRATIVE: Vital signs were reviewed. Patient is alert and oriented. Patient is breathing comfortably, no increased WOB or accessory muscle use. SpO2 is above 95% on RA. I do not appreciate any crackles, wheezing or rhonchi on auscultation of his lungs. Heart sounds are normal. No hypotension or tachycardia. Patient is moving all extremities, no deformity or gross injury. Patient has a rash on his bilateral forearms with a linear component that may be consistent with poison katy dermatitis. Course Vital Signs: Vital signs: Vital Signs Temperature 98.1 F 03/13/25 11:11 Pulse Rate 92 03/13/25 14:30 Respiratory Rate 18 03/13/25 13:24 Blood Pressure 177/81 03/13/25 14:30 Pulse Oximetry 94 03/13/25 14:30 Oxygen Delivery Me thod Room Air 03/13/25 13:24 MDM - General Adult Medical Decision Making 54-year-old male presents with a chief complaint of rash on bilateral extremities after gardening. Differential diagnosis includes but is not limited to, poison [place] dermatitis, superimposed infection, differential diagnosis includes, stable vs unstable angina, ACS, myocarditis, pericarditis, pneumonia, viral upper respiratory infection, PE, GERD, asthma, other. On initial exam, patient is hemodynamically stable nontoxic appearing. EKG was personally reviewed and interpreted and shows given patient's history of diabetes and CAD, he was screened with CBC, BMP, troponin and EKG. initial EKG shows normal sinus rhythm with a heart rate of 82, normal axis, no obvious STEMI but there does seem to be the question in V5-V6 about a less than 1mm elevation vs artifact; repeat EKG does nt show elevateion in V5-V6. Patient has a normal white blood cell count and he is not afebrile. Although he is at risk due to diabetes for cellulitis, feel that his presentation is most consistent at this time with poison katy dermatitis. BMP shows a normal troponin, no actionable electrolyte abnormalities and normal kidney function. However, he has an elevated glucose. I do suspect poor glucose control and for this reason, patient will be treated with steroid cream rather than p.o. steroid therapy for poison katy dermatitis. At this time, patient is appropriate for outpatient therapy. Patient was counseled on return precautions, advised to see his regular doctor within the next week. Patient was discharged in stable condition. Lab Data 03/13/25 13:20 03/13/25 13:20 Laboratory Results WBC 7.28 10^3/uL (3.29-11.43) 03/13/25 13:20 RBC 4.26 10^6/uL (3.85-5.65) 03/13/25 13:20 Hgb 12.50 g/dL (11.27-16.99) 03/13/25 13:20 Hct 37.6 % (37-53) 03/13/25 13:20 MCV 88.3 fl (82-101) 03/13/25 13:20 MCH 29.3 pg (27-33) 03/13/25 13:20 MCHC 33.2 g/dL (30-55) 03/13/25 13:20 RDW 13.3 % (12.1-15.1) 03/13/25 13:20 Plt Count 194 10^3/cmm (157-399) 03/13/25 13:20 MPV 10.5 fL (7.4-10.4) H 03/13/25 13:20 Neut % (Auto) 57.5 % 03/13/25 13:20 Lymph % (Auto) 22.4 % 03/13/25 13:20 [place] % (Auto) 11.7 % 03/13/25 13:20 Eos % (Auto) 7.4 % 03/13/25 13:20 Baso % (Auto) 0.7 % 03/13/25 13:20 Neut # (Auto) 4.19 10^3/uL (1.8-7.7) 03/13/25 13:20 Lymph # (Auto) 1.6 10^3/uL (0.8-4.8) 03/13/25 13:20 [place] # (Auto) 0.9 10^3/uL (0.2-0.9) 03/13/25 13:20 Eos # (Auto) 0.5 10^3/uL (0.0-0.8) 03/13/25 13:20 Baso # (Auto) 0.1 10^3/uL (0.0-0.1) 03/13/25 13:20 Nucleated RBC % (auto) 0 % 03/13/25 13:20 Nucleated RBCs # 0.0 /100WBC 03/13/25 13:20 Sodium 138 mmol/L (136-145) 03/13/25 13:20 Potassium 4.6 mmol/L (3.5-5.1) 03/13/25 13:20 Chloride 102 mmol/L (98-107) 03/13/25 13:20 Carbon Dioxide 24 mmol/L (22-29) 03/13/25 13:20 Anion Gap 16.6 (5-19) 03/13/25 13:20 BUN 26 mg/dL (6-20) H 03/13/25 13:20 Creatinine 0.8 mg/dL (0.7-1.2) 03/13/25 13:20 GFR Calculation 100.4 mL/min (90-130) 03/13/25 13:20 Glucose 253 mg/dL (65-115) H 03/13/25 13:20 Calculated Osmolality 299 mOsm/kg (285-295) H 03/13/25 13:20 Calcium 8.9 mg/dL (8.5-10.5) 03/13/25 13:20 Total Bilirubin 0.3 mg/dL (0.15-1.2) 03/13/25 13:20 AST 14 U/L (0-40) 03/13/25 13:20 ALT 13 U/L (0-41) 03/13/25 13:20 Alkaline Phosphatase 69 U/L (40-130) 03/13/25 13:20 Troponin T Baseline 14 ng/L (0-15) 03/13/25 13:20 Total Protein 5.9 g/dL (6.6-8.7) L 03/13/25 13:20 Albumin 3.7 g/dL (3.5-5.2) 03/13/25 13:20 Globulin 2.2 g/dL (1.3-4.6) 03/13/25 13:20 No radiology studies performed this visit Discharge Plan Discharge Patient Disposition: Home Clinical Impression: Contact dermatitis due to poison k[place], Atypical chest pain, Hyperglycemia Condition: Stable Prescriptions: New clobetasol 0.05 % ointment 1 applic topical BID 14 Days Qty: 60 0RF No Action fluticasone propionate 110 mcg/actuation HFA aerosol inhaler 1 puff inhalation BID Qty: 12 11RF nitroglycerin 0.4 mg tablet, sublingual 0.4 mg sublingual Q5M PRN (Reason: chest pain) Qty: 25 2RF Rx Instructions: do not exceed 3 doses per episode atorvastatin 80 mg tablet 80 mg PO DAILY Qty: 90 3RF clopidogrel [Plavix] 75 mg tablet 75 mg PO DAILY Qty: 90 3RF olmesartan 20 mg tablet 20 mg PO DAILY Qty: 90 3RF Januvia 100 mg tablet 100 mg PO DAILY Qty: 90 3RF (DME) Dexcom G6 Sensor Device See Rx Instructions .ROUTE .MEDSUPPLY Qty: 3 6RF Rx Instructions: As directed (DME) Dexcom G6 Director Wholesale Misc See Rx Instructions .ROUTE .MEDSUPPLY Qty: 1 0RF Rx Instructions: As directed (DME) Dexcom G6 Transmitter Device See Rx Instructions .ROUTE .MEDSUPPLY Qty: 1 2RF Rx Instructions: As directed metoprolol succinate 25 mg tablet extended release 24 hr 25 mg PO DAILY Qty: 90 3RF Rx Instructions: 02/28/[address] Christopher at afternoon appt. insulin glargine [Lantus Solostar U-100 Insulin] 100 unit/mL (3 mL) insulin pen 15 unit SUBCUT BID aspirin 81 mg Tablet,Delayed Release (/Ec) 81 mg PO DAILY glipizide 10 mg tablet 10 mg PO DAILY metformin 1,000 mg tablet 1,000 mg PO BID Discharge Orders: Discharge ED (Routine); Ordered 03/13/25 Ordered By: Senait López Referrals: Sobeida Mccracken, EUGENE [Primary Care Provider, Unknown] Patient Instructions: Chest Pain (DC), Poison [place] (ED), Cold Compress or Soak (ED), Opioid Safety, Pain Management, Patient Portal & Gerda Instructions Activity Restrictions/Additional Instructions: Please continue to monitor your condition closely at home. Use prescribed cream twice a day to help with your rash. You may take benadryl for itching or use calamine lotion. Continue to monitor for signs of infection such as fever, feeling more sick, spreading redness, pain or pus. If your condition worsens or additional concerns arise, please return promptly to the emergency department for reassessment. Follow up with your primary care doctor in one week. Print Language: [place] Sign Language Coding Level of Care Code ED Zoo Veterinarian for Eugenio Stone
--- NOTE | 2025-03-13 12:40 | ECG_ITS ---
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 Measurements Intervals [place] Rate: 82 P: 54 OK: 149 QRS: -18 QRSD: 94 T: 60 QT: 352 QTc: 413 Interpretive Statements SINUS RHYTHM LOW QRS VOLTAGE IN PRECORDIAL LEADS [QRS DEFLECTION < 1.0 mV IN CHEST LEADS] POSSIBLE ANTERIOR MYOCARDIAL INFARCTION , OF INDETERMINATE AGE [30 ms Q WAVE IN V3/V4, OR R < 0.2 mV IN V4] Compared to ECG 03/01/2025 21:10:55 Myocardial infarct finding now present Electronically Signed On 03-13-2025 20:47:44 CDT by He Knight M.D. [email or web address]
--- NOTE | 2025-03-13 13:11 | PC.PHAR ---
Pt does not hear but can understand some conversation when speaking slow enough for him to lip read. Pt did take his morning medications and they were verified by DESHAUN Huerta.
[2025-03-13 13:24] VITALS: PULSE 76; RESP 18; O2SAT 99
[2025-03-13 13:44] LABS: Hematocrit 37.6 % (37-53); Hemoglobin 12.50 g/dL (11.27-16.99); Mean Corpuscular HGB Conc 33.2 g/dL (30-55); Mean Corpuscular Hemoglobin 29.3 pg (27-33); Mean Corpuscular Volume 88.3 fl (82-101); Nucleated Red Blood Cells % 0 %; Platelet Count 194 10^3/cmm (157-399); Red Blood Count 4.26 10^6/uL (3.85-5.65); White Blood Count 7.28 10^3/uL (3.29-11.43)
[2025-03-13 14:03] LABS: Troponin(5th) Baseline 14 ng/L (0-15)
[2025-03-13 14:05] LABS: Alanine Aminotransferase 13 U/L (0-41); Albumin Level 3.7 g/dL (3.5-5.2); Alkaline Phosphatase 69 U/L (40-130); Anion Gap 16.6 (5-19); Aspartate Amino Transferase 14 U/L (0-40); Blood Urea Nitrogen 26 mg/dL (6-20); Calcium 8.9 mg/dL (8.5-10.5); Carbon Dioxide 24 mmol/L (22-29); Chloride 102 mmol/L (98-107); Creatinine Clr Calc Pharmacy 120.8051; Globulin 2.2 g/dL (1.3-4.6); Glucose 253 mg/dL (65-115); Osmolality Calculated 299 mOsm/kg (285-295); Potassium 4.6 mmol/L (3.5-5.1); Sodium 138 mmol/L (136-145); Total Protein 5.9 g/dL (6.6-8.7)
[2025-03-13 14:30] VITALS: BP 177/81; PULSE 92; O2SAT 94
== END 2025-03-13 14:31 | disposition home or self-care (01) ==
PROVIDERS: Emergency Provider Emergency Medicine; PCP Nurse Practitioner Family
DX: L25.5 Unspecified contact dermatitis due to plants, except food (principal); R07.89 Other chest pain; Z79.02 Long term (current) use of antithrombotics/antiplatelets; Z79.4 Long term (current) use of insulin; Z79.82 Long term (current) use of aspirin; Z79.84 Long term (current) use of oral hypoglycemic drugs; E11.65 Type 2 diabetes mellitus with hyperglycemia; I10 Essential (primary) hypertension; I25.10 Atherosclerotic heart disease of native coronary artery without angina pectoris
CPT/HCPCS: 36415; 80053; 84484; 85025; 93005; 99284; J9999

== ENCOUNTER 2025-03-30 10:08 | Emergency (ER) | payer MEDICARE, MEDICAID, SELFPAY ==
[2025-03-30 10:48] VITALS: BP 134/65; PULSE 92; RESP 18; TEMP 36.8; O2SAT 100; BMI 33.4
--- NOTE | 2025-03-30 11:07 | W.ED.SKABFB ---
HPI - Skin/Abscess/Foreign Bdy General: Chief complaint: Skin/Abscess/Foreign Body Stated complaint: Spider Bite R arm Time Seen by Provider: 03/30/25 10:12 Source: patient Mode of arrival: ambulatory Limitations: no limitations History of Present Illness: Patient is a 54-year-old male here with concerns of a possible spider bite involving his right arm. Patient is deaf and communicates via writing on a notepad. He states he began noticing swollen areas to his right arm last week. He states they have since spread. He has noticed a small amount of drainage. No fevers. No witnessed spider bite. Denies history of staph/MRSA. MD complaint: insect bite/sting and abscess/boil Onset (ago): day(s) Tetanus up to date: yes Location: RUE Severity: moderate Pain Consistency: constant Relieving factors: none Exacerbating factors: none Context: none Associated symptoms: Reports no associated symptoms; Deny chills, fever(s), nausea or vomiting Treatments prior to arrival: none Related Data Home Medications ?Medication ?Instructions ?Recorded ?Confirmed insulin glargine 100 unit/mL (3 15 unit SUBCUT BID 11/04/24 03/13/25 mL) subcutaneous pen (Lantus Solostar U-100 Insulin) aspirin 81 mg tablet,delayed 81 mg PO DAILY 01/10/25 03/13/25 release glipizide 10 mg tablet 10 mg PO DAILY 03/13/25 03/13/25 metformin 1,000 mg tablet 1,000 mg PO BID 03/13/25 03/13/25 Previous Rx's ?Medication ?Instructions ?Recorded fluticasone propionate 110 1 puff inhalation BID #12 grams 05/10/24 mcg/actuation HFA aerosol inhaler nitroglycerin 0.4 mg sublingual 0.4 mg sublingual Q5M PRN chest 08/03/24 tablet pain #25 tabs atorvastatin 80 mg tablet 80 mg PO DAILY #90 tabs 02/28/25 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 sensor (Dexcom G6 #3 ea 02/28/25 Sensor device) 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 transmitter (Dexcom #1 ea 02/28/25 G6 Transmitter device) 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,special agent,cont #1 ea 02/28/25 (Dexcom G6 Head Piece Assembler) clopidogrel 75 mg tablet (Plavix) 75 mg PO DAILY #90 tabs 02/28/25 metoprolol succinate 25 mg 25 mg PO DAILY #90 tabs 02/28/25 tablet,extended release 24 hr olmesartan 20 mg tablet 20 mg PO DAILY #90 tabs 02/28/25 sitagliptin phosphate 100 mg 100 mg PO DAILY #90 tabs 02/28/25 tablet (Januvia) sulfamethoxazole 800 2 tab PO BID 7 days #28 tabs 03/30/25 mg-trimethoprim 160 mg tablet (Bactrim DS) Allergies Allergy/AdvReac Type Severity Reaction Status Date / Time No Known Allergies Allergy Verified 03/13/25 11:18 Review of Systems Const: Denies: fever(s), chills, body aches, fatigue or malaise GI: Denies: nausea or vomiting Musc: Reports: extremity pain; Denies: extremity swelling, joint pain, joint swelling or joint redness Skin/Breast: Reports: new lesions (R arm) Neuro: Denies: headache(s), numbness in extremities, weakness in extremities or sensory changes PFSH ED PFSH: Medical History CAD (coronary artery disease) Muteness Bilateral hearing loss Generalized anxiety disorder Mild intermittent asthma Essential hypertension Type 2 diabetes mellitus without complications Surgical History History of coronary artery stent placement 09/05?KENISHA to mid RCA balloon angioplasty of LAD to D1, distal LAD, Ankle fracture, left With surgical fixation - [place] Hx of tonsillectomy 2004 History of cochlear implant lost his device. follows with someone in [facility]. History of surgical procedure on mouth reports history of tongue surgery Family History Mother , etoh Diabetes Social History Smoking and tobacco/nicotine status: former use of tobacco/nicotine Quit status (tobacco/nicotine): has quit using Year quit tobacco: 1998 Former quit date comment: 03/1999 Alcohol intake: former Year of sobriety/quit date alcohol: 2021 Former alcohol use details: He quit 2 years after his mom Substance/Drug Use: never Additional social history: living in homeless [facility] Marital status: Single Highest education level completed: 12th Grade, No Diploma Current occupational status: disabled Physical Exam Const: COMMON NORMALS: no acute distress, average body habitus, no limitations, healthy appearing, alert and well nourished Extremity: COMMON NORMALS: full ROM and capillary refill normal GENERAL: Yes normal exam except as noted EXTREMITY IMAGE (FRONT):  1. 2. 3. 4. multiple probable staph abscesses to R UE; few are minor-others are larger with induration; none of which with underlying fluctuance amendable to I&D; no significant surrounding cellulitis or streaking; no active drainage Neuro: COMMON NORMALS: moves all extremities, no focal motor deficits and no sensory deficits noted SENSORIUM/ORIENTATION: Yes alert Skin: NARRATIVE SKIN EXAM: see above Course Vital Signs: Vital signs: Vital Signs Temperature 98.2 F 03/30/25 10:48 Pulse Rate 92 03/30/25 10:48 Respiratory Rate 18 03/30/25 10:48 Blood Pressure 134/65 03/30/25 10:48 Pulse Oximetry 100 03/30/25 10:48 Oxygen Delivery Me thod Room Air 03/30/25 10:48 MDM - Skin/Abscess/Foreign Bdy Medicial Decision Making Patient here most likely with multiple staph abscesses involving the right upper extremity. None of which appear amendable to I&D at this time. Will place on antibiotics. Return ED precautions discussed. Medical Records I reviewed the patient's medical records. No radiology studies performed this visit Discharge Plan Discharge Patient Disposition: Home Clinical Impression: Abscess of arm, right Condition: Stable Prescriptions: New sulfamethoxazole-trimethoprim [Bactrim DS] 800-160 mg tablet 2 tab PO BID 7 Days Qty: 28 0RF No Action fluticasone propionate 110 mcg/actuation HFA aerosol inhaler 1 puff inhalation BID Qty: 12 11RF nitroglycerin 0.4 mg tablet, sublingual 0.4 mg sublingual Q5M PRN (Reason: chest pain) Qty: 25 2RF Rx Instructions: do not exceed 3 doses per episode atorvastatin 80 mg tablet 80 mg PO DAILY Qty: 90 3RF clopidogrel [Plavix] 75 mg tablet 75 mg PO DAILY Qty: 90 3RF olmesartan 20 mg tablet 20 mg PO DAILY Qty: 90 3RF Januvia 100 mg tablet 100 mg PO DAILY Qty: 90 3RF (DME) [employer] G6 Sensor Device See Rx Instructions .ROUTE .MEDSUPPLY Qty: 3 6RF Rx Instructions: As directed (DME) Dexcom G6 Head Piece Assembler Misc See Rx Instructions .ROUTE .MEDSUPPLY Qty: 1 0RF Rx Instructions: As directed (DME) Dexcom G6 Transmitter Device See Rx Instructions .ROUTE .MEDSUPPLY Qty: 1 2RF Rx Instructions: As directed metoprolol succinate 25 mg tablet extended release 24 hr 25 mg PO DAILY Qty: 90 3RF Rx Instructions: 02/28/[address] Christopher at afternoon appt. insulin glargine [Lantus Solostar U-100 Insulin] 100 unit/mL (3 mL) insulin pen 15 unit SUBCUT BID aspirin 81 mg Tablet,Delayed Release (Dr/Ec) 81 mg PO DAILY glipizide 10 mg tablet 10 mg PO DAILY metformin 1,000 mg tablet 1,000 mg PO BID Discharge Orders: Discharge ED (Routine); Ordered 03/30/25 Ordered By: Stephanie Goodrich Referrals: Sobeida Mccracken NP [Primary Care Provider, Unknown] Patient Instructions: Abscess (ED), Patient Portal & Gerda Instructions, Skin Abscess Activity Restrictions/Additional Instructions: Please monitor your abscess for worsening symptoms such as worsening redness, swelling, increased drainage, red streaking, or fevers. If you have been on antibiotics for over 48 hours and continue to worsen you need to immediately return to the emergency department for re-evaluation. Print Language: Slovak Sign Language Coding Level of Care Code ED Stand In for Eugenio Stone
== END 2025-03-30 11:29 | disposition home or self-care (01) ==
PROVIDERS: Emergency Provider Physician Assistant; PCP Nurse Practitioner Family
DX: L02.413 Cutaneous abscess of right upper limb (principal); B95.8 Unspecified staphylococcus as the cause of diseases classified elsewhere; Z79.82 Long term (current) use of aspirin; Z79.84 Long term (current) use of oral hypoglycemic drugs; Z79.4 Long term (current) use of insulin; Z79.02 Long term (current) use of antithrombotics/antiplatelets; Z87.891 Personal history of nicotine dependence; I25.10 Atherosclerotic heart disease of native coronary artery without angina pectoris; E11.9 Type 2 diabetes mellitus without complications; I10 Essential (primary) hypertension
CPT/HCPCS: 99283

== ENCOUNTER → 2025-04-02 13:24 | Outpatient (BNVA) | payer MEDICARE, MEDICAID, SELFPAY | PROVIDERS: PCP Nurse Practitioner Family; Visit Provider Family Medicine | DX: L02.91 Cutaneous abscess, unspecified (principal) | CPT/HCPCS: 87070; 87075; 87205 ==

== ENCOUNTER → 2025-04-12 14:20 | Outpatient (BNVA) | payer MEDICAID, SELFPAY | PROVIDERS: PCP Family Medicine; Visit Provider Podiatrist Foot & Ankle Surgery | DX: S82.892D Other fracture of left lower leg, subsequent encounter for closed fracture with routine healing (principal); X58.XXXD Exposure to other specified factors, subsequent encounter | CPT/HCPCS: 73610; 99024 ==

== ENCOUNTER 2025-04-22 12:20 | Emergency (ER) | payer MEDICARE, MEDICAID, SELFPAY ==
[2025-04-22 12:23] VITALS: BP 178/76; PULSE 92; TEMP 36.7; O2SAT 97
--- NOTE | 2025-04-22 13:02 | W.ED.BACK ---
Documented by User: DANIELLE Urban 04/22/25 13:38 HPI - Back Pain/Injury General: Chief Complaint: Back Pain/Injury Stated Complaint: Back Pain Time Seen by Provider: 04/22/25 12:30 Source: patient Mode of arrival: ambulatory Limitations: physical limitation (Deaf/mute) History of Present Illness: Patient is a 54-year-old male who presents the emergency department with complaints of right upper back pain that he woke up with this morning. He has a history of deaf and mute nests, so he writes out his complaint, otherwise review of systems is limited. However he is able to indicate to me that there is no direct trauma, and he thinks that his kidneys are hurting him. With lipreading, he shakes his head no when asked about any falls, no loss of bowel or bladder function, and no numbness in the groin region. He is ambulatory without difficulty, movement in all extremities, vitals are stable. Indicates that he has not taken anything for pain. MD elicited complaint: back pain Onset (ago): hour(s) Timing: constant Severity: similar to previous episodes Similar Symptoms Previously: Yes Location: right upper back Radiation: none Associated symptoms: Deny fecal incontinence, fever(s), nausea or vomiting Related Data Home Medications ?Medication ?Instructions ?Recorded ?Confirmed insulin glargine 100 unit/mL (3 15 unit SUBCUT BID 11/04/24 04/22/25 mL) subcutaneous pen (Lantus Solostar U-100 Insulin) aspirin 81 mg tablet,delayed 81 mg PO DAILY 01/10/25 04/22/25 release glipizide 10 mg tablet 10 mg PO DAILY 03/13/25 04/22/25 metformin 1,000 mg tablet 1,000 mg PO BID 03/13/25 04/22/25 Previous Rx's ?Medication ?Instructions ?Recorded fluticasone propionate 110 1 puff inhalation BID #12 grams 05/10/24 mcg/actuation HFA aerosol inhaler nitroglycerin 0.4 mg sublingual 0.4 mg sublingual Q5M PRN chest 08/03/24 tablet pain #25 tabs atorvastatin 80 mg tablet 80 mg PO DAILY #90 tabs 02/28/25 clopidogrel 75 mg tablet (Plavix) 75 mg PO DAILY #90 tabs 02/28/25 metoprolol succinate 25 mg 25 mg PO DAILY #90 tabs 02/28/25 tablet,extended release 24 hr olmesartan 20 mg tablet 20 mg PO DAILY #90 tabs 02/28/25 sitagliptin phosphate 100 mg 100 mg PO DAILY #90 tabs 02/28/25 tablet (Januvia) sulfamethoxazole 800 1 tab PO BID #14 tabs 04/09/25 mg-trimethoprim 160 mg tablet (Bactrim DS) blood sugar diagnostic (OneTouch #100 ea 04/16/25 Ultra Test strips) 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 meter (OneTouch #1 ea 04/16/25 Ultra2 Meter) lancets 30 gauge #100 ea 04/16/25 methocarbamol 750 mg tablet 750 mg PO Q8H 5 days #15 tabs 04/22/25 prednisone 10 mg tablets in a dose 10 mg PO DIRECTED #21 ea 04/22/25 pack Allergies Allergy/AdvReac Type Severity Reaction Status Date / Time No Known Allergies Allergy Verified 04/22/25 12:28 Review of Systems General: Reports: 10 or more systems reviewed and unremarkable except in HPI and below and Other (Severely limited by physical disability) Const: Denies: fever(s) GI: Denies: nausea, vomiting or fecal incontinence : Denies: urinary incontinence Musc: Reports: back pain; Denies: extremity pain Skin/Breast: Denies: rash Neuro: Denies: numbness in extremities or weakness in extremities PFSH ED PFSH: Medical History CAD (coronary artery disease) Muteness Bilateral hearing loss Generalized anxiety disorder Mild intermittent asthma Essential hypertension Type 2 diabetes mellitus without complications Surgical History History of coronary artery stent placement 09/05?KENISHA to mid RCA balloon angioplasty of LAD to D1, distal LAD, Ankle fracture, left With surgical fixation - [place] Hx of tonsillectomy 2003 History of cochlear implant lost his device. follows with someone in [facility]. History of surgical procedure on mouth reports history of tongue surgery Family History Mother , etoh Diabetes Social History Smoking and tobacco/nicotine status: never used tobacco/nicotine Quit status (tobacco/nicotine): has quit using Year quit tobacco: 1998 Former quit date comment: 03/1999 Alcohol intake: former Year of sobriety/quit date alcohol: 2021 Former alcohol use details: He quit 2 years after his mom Substance/Drug Use: never Additional social history: living in homeless group home Marital status: Single Highest education level completed: 12th Grade, No Diploma Current occupational status: disabled Physical Exam Const: COMMON NORMALS: no acute distress, patient oriented x3, healthy appearing and alert EXAM LIMITATIONS: physical limitations (Deaf and mute) NUTRITIONAL APPEARANCE: obese Resp: COMMON NORMALS: normal respiratory effort, No retractions, No use of accessory muscles and clear to auscultation bilaterally AUSCULTATION: clear to auscultation bilaterally Cardio: COMMON NORMALS: regular rate, regular rhythm, S1 normal heart sound present and S2 normal heart sound present RATE: regular rate RHYTHM: regular rhythm HEART SOUNDS: S1 normal heart sound present and S2 normal heart sound present Back/Pelvis: OTHER: Normal visual examination. No spinous process tenderness. Tender to palpation to right parathoracic muscles. Full active range of motion. Extremity: COMMON NORMALS: normal to inspection and full ROM Neuro: COMMON NORMALS: patient oriented x3, moves all extremities, no focal motor deficits, no sensory deficits noted, deep tendon reflexes 2+ bilaterally and gait normal SENSORIUM/ORIENTATION: Yes alert OTHER: L3, L4, L5, and S1 nerve sensations intact. Normal knee jerk and ankle jerk reflexes. Skin: COMMON NORMALS: no rashes or lesions noted GENERAL SKIN EXAM: no rashes or lesions noted Course Vital Signs: Vital signs: Vital Signs Temperature 98.1 F 04/22/25 12:23 Pulse Rate 92 04/22/25 12:23 Blood Pressure 178/76 04/22/25 12:23 Pulse Oximetry 97 04/22/25 12:23 Oxygen Delivery Me thod Room Air 04/22/25 12:23 MDM - Back Pain/Injury Medical Decision Making Patient presented with atraumatic right middle back pain, indicated that he was worried about his kidneys. History of deaf and mute, which limited the review of systems. He has improvement following administration of medications here, urine does not show any signs of infection or blood that would make me concerned of any UTI or nephrolithiasis. With his improvement in symptoms, lack of red flag back symptoms, stable for discharge home as diagnosed with musculoskeletal back pain. Return precautions given, medication sent to pharmacy. Labs Laboratory Results Urine Color Yellow (Yellow) 04/22/25 13:01 Urine Appearance Clear (CLEAR) 04/22/25 13:01 Urine pH 5 (5-7) 04/22/25 13:01 Ur Specific [place] 1.020 (1.005-1.030) 04/22/25 13:01 Urine Protein Neg (Negative) 04/22/25 13:01 Urine Glucose (UA) 4+ (Normal) H 04/22/25 13:01 Urine Ketones Negative (Negative) 04/22/25 13:01 Urine Blood Neg (Negative) 04/22/25 13: Urine Nitrate Negative (Negative) 04/22/25 13: Urine Bilirubin Neg (Negative) 04/22/25 13:01 Urine Urobilinogen Neg mg/dL (Negative) 04/22/25 13:01 Ur Leukocyte Esterase Negative (Negative) 04/22/25 13: Amorphous Sediment Not Reportable 04/22/25 13: No radiology studies performed this visit Discharge Plan Discharge Patient Disposition: Home Clinical Impression: Musculoskeletal back pain Condition: Stable Prescriptions: New prednisone 10 mg tablets,dose pack 10 mg PO DIRECTED Qty: 21 0RF Rx Instructions: see taper instructions 6 tablets on day 1, 5 tablets on day 2, 4 tablets on day 3, 3 tablets on day 4, 2 tablets on day 5, and 1 tablet a day 6. P.o. methocarbamol 750 mg tablet 750 mg PO Q8H 5 Days Qty: 15 0RF No Action fluticasone propionate 110 mcg/actuation HFA aerosol inhaler 1 puff inhalation BID Qty: 12 11RF lidocaine-epinephrine 2 %-1:100,000 solution 4 ml Infiltration ONCE Qty: 4 0RF nitroglycerin 0.4 mg tablet, sublingual 0.4 mg sublingual Q5M PRN (Reason: chest pain) Qty: 25 2RF Rx Instructions: do not exceed 3 doses per episode atorvastatin 80 mg tablet 80 mg PO DAILY Qty: 90 3RF clopidogrel [Plavix] 75 mg tablet 75 mg PO DAILY Qty: 90 3RF olmesartan 20 mg tablet 20 mg PO DAILY Qty: 90 3RF Januvia 100 mg tablet 100 mg PO DAILY Qty: 90 3RF metoprolol succinate 25 mg tablet extended release 24 hr 25 mg PO DAILY Qty: 90 3RF Rx Instructions: 02/28/[address] Christopher at afternoon appt. sulfamethoxazole-trimethoprim [Bactrim DS] 800-160 mg tablet 1 tab PO BID Qty: 14 0RF (DME) 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 meter [OneTouch Ultra2 Meter] Misc See Rx Instructions .ROUTE .MEDSUPPLY Qty: 1 0RF Rx Instructions: As directed (DME) OneTouch Ultra Test Strip See Rx Instructions .ROUTE .MEDSUPPLY Qty: 100 6RF Rx Instructions: As directed (DME) lancets 30 gauge misc See Rx Instructions .Route Qty: 100 6RF Rx Instructions: As directed to check glucose up to 3x/day insulin glargine [Lantus Solostar U-100 Insulin] 100 unit/mL (3 mL) insulin pen 15 unit SUBCUT BID aspirin 81 mg Tablet,Delayed Release (Dr/Ec) 81 mg PO DAILY glipizide 10 mg tablet 10 mg PO DAILY metformin 1,000 mg tablet 1,000 mg PO BID Discharge Orders: Discharge ED (Routine); Ordered 04/22/25 Ordered By: Bj Marrufo Referrals: Braulio Hollins MD [Primary Care Provider, Family Practice] Patient Instructions: Patient Portal & Gerda Instructions Activity Restrictions/Additional Instructions: Back Pain Discharge Instructions Diagnosis and Prognosis: You have been diagnosed with musculoskeletal (mechanical) back pain. This type of back pain is common and usually improves over time. Most people experience significant improvement within a few weeks, even without extensive treatment. Activity: It is important to stay active as much as you can. Avoid bed rest. Gentle movement and returning to your normal activities, as tolerated, will help you recover faster. You may use a heating pad for comfort if desired. Medications: - Methocarbamol (Robaxin): Take as prescribed to help with muscle discomfort. This medication may cause drowsiness or dizziness, so avoid driving or operating heavy machinery until you know how it affects you. Do not drink alcohol while taking this medication. - Prednisone taper: Take exactly as directed. While prednisone is sometimes used for back pain, current evidence shows it offers little benefit for pain or function in most cases. If you experience side effects such as trouble sleeping, nervousness, or increased appetite, let your healthcare provider know. Self-Care: - Use scid-ebl-zzyuxgf pain relievers (such as ibuprofen) only if recommended and if you do not have kidney or stomach problems. - Gentle stretching or walking is encouraged. - Physical therapy or supervised exercise may be considered if pain persists or interferes with daily activities. When to Seek Medical Attention: Contact your healthcare provider or go to the emergency room if you experience any of the following: - New or worsening numbness, tingling, or weakness in your legs - Loss of bladder or bowel control - Severe pain following trauma (such as a fall or accident) - Fever, unexplained weight loss, or history of cancer - Saddle anesthesia (numbness in the area that would touch a bicycle seat) Follow-Up: If your pain does not improve within 4-6 weeks, or if it gets worse, schedule a follow-up appointment. Most cases resolve without further intervention, but persistent pain may require additional evaluation. Questions: If you have any questions about your medications or recovery, please contact your healthcare provider. Print Language: Citizen [place] [employer] Language Coding Level of Care Code ED Ammonium Nitrate Neutralizer for Chg Fwd Documented by User: Jamal Trevizo DO 04/22/25 14:26 HPI - Back Pain/Injury General: Chief Complaint: Back Pain/Injury Stated Complaint: Back Pain Time Seen by Provider: 04/22/25 12:30 Related Data Home Medications ?Medication ?Instructions ?Recorded ?Confirmed insulin glargine 100 unit/mL (3 15 unit SUBCUT BID 11/04/24 04/22/25 mL) subcutaneous pen (Lantus Solostar U-100 Insulin) aspirin 81 mg tablet,delayed 81 mg PO DAILY 01/10/25 04/22/25 release glipizide 10 mg tablet 10 mg PO DAILY 03/13/25 04/22/25 metformin 1,000 mg tablet 1,000 mg PO BID 03/13/25 04/22/25 Previous Rx's ?Medication ?Instructions ?Recorded fluticasone propionate 110 1 puff inhalation BID #12 grams 05/10/24 mcg/actuation HFA aerosol inhaler nitroglycerin 0.4 mg sublingual 0.4 mg sublingual Q5M PRN chest 08/03/24 tablet pain #25 tabs atorvastatin 80 mg tablet 80 mg PO DAILY #90 tabs 02/28/25 clopidogrel 75 mg tablet (Plavix) 75 mg PO DAILY #90 tabs 02/28/25 metoprolol succinate 25 mg 25 mg PO DAILY #90 tabs 02/28/25 tablet,extended release 24 hr olmesartan 20 mg tablet 20 mg PO DAILY #90 tabs 02/28/25 sitagliptin phosphate 100 mg 100 mg PO DAILY #90 tabs 02/28/25 tablet (Januvia) sulfamethoxazole 800 1 tab PO BID #14 tabs 04/09/25 mg-trimethoprim 160 mg tablet (Bactrim DS) blood sugar diagnostic (OneTouch #100 ea 04/16/25 Ultra Test strips) 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 meter (OneTouch #1 ea 04/16/25 Ultra2 Meter) lancets 30 gauge #100 ea 04/16/25 methocarbamol 750 mg tablet 750 mg PO Q8H 5 days #15 tabs 04/22/25 prednisone 10 mg tablets in a dose 10 mg PO DIRECTED #21 ea 04/22/25 pack Allergies Allergy/AdvReac Type Severity Reaction Status Date / Time No Known Allergies Allergy Verified 04/22/25 12:28 [facility] ED PFS: Medical History CAD (coronary artery disease) Muteness Bilateral hearing loss Generalized anxiety disorder Mild intermittent asthma Essential hypertension Type 2 diabetes mellitus without complications Surgical History History of coronary artery stent placement 09/05?KENISHA to mid RCA balloon angioplasty of LAD to D1, distal LAD, Ankle fracture, left With surgical fixation - [place] Hx of tonsillectomy 2003 History of cochlear implant lost his device. follows with someone in [facility]. History of surgical procedure on mouth reports history of tongue surgery Family History Mother , etoh Diabetes Social History Smoking and tobacco/nicotine status: never used tobacco/nicotine Quit status (tobacco/nicotine): has quit using Year quit tobacco: 1998 Former quit date comment: 03/1999 Alcohol intake: former Year of sobriety/quit date alcohol: 2021 Former alcohol use details: He quit 2 years after his mom Substance/Drug Use: never Additional social history: living in homeless group home Marital status: Single Highest education level completed: 12th Grade, No Diploma Current occupational status: disabled Course Vital Signs: Vital signs: Vital Signs Temperature 98.1 F 04/22/25 12:23 Pulse Rate 92 04/22/25 12:23 Blood Pressure 178/76 04/22/25 12:23 Pulse Oximetry 97 04/22/25 12:23 Oxygen Delivery Me thod Room Air 04/22/25 12:23 MDM - Back Pain/Injury Medical Decision Making Patient presented with atraumatic right middle back pain, indicated that he was worried about his kidneys. History of deaf and mute, which limited the review of systems. He has improvement following administration of medications here, urine does not show any signs of infection or blood that would make me concerned of any UTI or nephrolithiasis. With his improvement in symptoms, lack of red flag back symptoms, stable for discharge home as diagnosed with musculoskeletal back pain. Return precautions given, medication sent to pharmacy. Chart reviewed and patient discussed with midlevel. Agree with assessment and plan. Labs Laboratory Results Urine Color Yellow (Yellow) 04/22/25 13:01 Urine Appearance Clear (CLEAR) 04/22/25 13:01 Urine pH 5 (5-7) 04/22/25 13:01 Ur Specific [place] 1.020 (1.005-1.030) 04/22/25 13:01 Urine Protein Neg (Negative) 04/22/25 13:01 Urine Glucose (UA) 4+ (Normal) H 04/22/25 13:01 Urine Ketones Negative (Negative) 04/22/25 13:01 Urine Blood Neg (Negative) 04/22/25 13:01 Urine Nitrate Negative (Negative) 04/22/25 13:01 Urine Bilirubin Neg (Negative) 04/22/25 13:01 Urine Urobilinogen Neg mg/dL (Negative) 04/22/25 13:01 Ur Leukocyte Esterase Negative (Negative) 04/22/25 13:01 Amorphous Sediment Not Reportable 04/22/25 13:01 Discharge Plan Discharge Patient Disposition: Home Clinical Impression: Musculoskeletal back pain Condition: Stable Prescriptions: New prednisone 10 mg tablets,dose pack 10 mg PO DIRECTED Qty: 21 0RF Rx Instructions: see taper instructions 6 tablets on day 1, 5 tablets on day 2, 4 tablets on day 3, 3 tablets on day 4, 2 tablets on day 5, and 1 tablet a day 6. P.o. methocarbamol 750 mg tablet 750 mg PO Q8H 5 Days Qty: 15 0RF No Action fluticasone propionate 110 mcg/actuation HFA aerosol inhaler 1 puff inhalation BID Qty: 12 11RF lidocaine-epinephrine 2 %-1:100,000 solution 4 ml Infiltration ONCE Qty: 4 0RF nitroglycerin 0.4 mg tablet, sublingual 0.4 mg sublingual Q5M PRN (Reason: chest pain) Qty: 25 2RF Rx Instructions: do not exceed 3 doses per episode atorvastatin 80 mg tablet 80 mg PO DAILY Qty: 90 3RF clopidogrel [Plavix] 75 mg tablet 75 mg PO DAILY Qty: 90 3RF olmesartan 20 mg tablet 20 mg PO DAILY Qty: 90 3RF Januvia 100 mg tablet 100 mg PO DAILY Qty: 90 3RF metoprolol succinate 25 mg tablet extended release 24 hr 25 mg PO DAILY Qty: 90 3RF Rx Instructions: 02/28/[address] Christopher at afternoon appt. sulfamethoxazole-trimethoprim [Bactrim DS] 800-160 mg tablet 1 tab PO BID Qty: 14 0RF (DME) 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 meter [OneTouch Ultra2 Meter] Misc See Rx Instructions .ROUTE .MEDSUPPLY Qty: 1 0RF Rx Instructions: As directed (DME) OneTouch Ultra Test Strip See Rx Instructions .ROUTE .MEDSUPPLY Qty: 100 6RF Rx Instructions: As directed (DME) lancets 30 gauge misc See Rx Instructions .Route Qty: 100 6RF Rx Instructions: As directed to check glucose up to 3x/day insulin glargine [Lantus Solostar U-100 Insulin] 100 unit/mL (3 mL) insulin pen 15 unit SUBCUT BID aspirin 81 mg Tablet,Delayed Release (Dr/Ec) 81 mg PO DAILY glipizide 10 mg tablet 10 mg PO DAILY metformin 1,000 mg tablet 1,000 mg PO BID Discharge Orders: Discharge ED (Routine); Ordered 04/22/25 Ordered By: Bj Marrufo Referrals: Braulio Hollins MD [Primary Care Provider, Family Practice] Patient Instructions: Patient Portal & Gerda Instructions Activity Restrictions/Additional Instructions: Back Pain Discharge Instructions Diagnosis and Prognosis: You have been diagnosed with musculoskeletal (mechanical) back pain. This type of back pain is common and usually improves over time. Most people experience significant improvement within a few weeks, even without extensive treatment. Activity: It is important to stay active as much as you can. Avoid bed rest. Gentle movement and returning to your normal activities, as tolerated, will help you recover faster. You may use a heating pad for comfort if desired. Medications: - Methocarbamol (Robaxin): Take as prescribed to help with muscle discomfort. This medication may cause drowsiness or dizziness, so avoid driving or operating heavy machinery until you know how it affects you. Do not drink alcohol while taking this medication. - Prednisone taper: Take exactly as directed. While prednisone is sometimes used for back pain, current evidence shows it offers little benefit for pain or function in most cases. If you experience side effects such as trouble sleeping, nervousness, or increased appetite, let your healthcare provider know. Self-Care: - Use gosw-cla-sahovyl pain relievers (such as ibuprofen) only if recommended and if you do not have kidney or stomach problems. - Gentle stretching or walking is encouraged. - Physical therapy or supervised exercise may be considered if pain persists or interferes with daily activities. When to Seek Medical Attention: Contact your healthcare provider or go to the emergency room if you experience any of the following: - New or worsening numbness, tingling, or weakness in your legs - Loss of bladder or bowel control - Severe pain following trauma (such as a fall or accident) - Fever, unexplained weight loss, or history of cancer - Saddle anesthesia (numbness in the area that would touch a bicycle seat) Follow-Up: If your pain does not improve within 4-6 weeks, or if it gets worse, schedule a follow-up appointment. Most cases resolve without further intervention, but persistent pain may require additional evaluation. Questions: If you have any questions about your medications or recovery, please contact your healthcare provider. Print Language: Citizen Of [place] Sign Language Coding Level of Care Code ED Ammonium Nitrate Neutralizer for Eugenio Stone
[2025-04-22] MEDS: HYDROcodone-acetaminophen 7.5-325 mg Tablet 1 TAB PO (13:04)
[2025-04-22] MEDS: orphenadrine 30 mg/mL Inj 2 mL 60 MG IM (13:08)
[2025-04-22 13:10] LABS: Add Urine Microscopic? NO
[2025-04-22 13:21] LABS: Glucose Urine UA 4+ (Normal); Nitrate Urine Negative (Negative); Specific Gravity, Urine 1.020 (1.005-1.030)
[2025-04-22 13:22] LABS: Charge for UA Resulting for Rev
== END 2025-04-22 14:00 | disposition home or self-care (01) ==
PROVIDERS: Emergency Provider Physician Assistant; PCP Family Medicine
DX: M54.89 Other dorsalgia (principal); Z79.4 Long term (current) use of insulin; Z79.82 Long term (current) use of aspirin; Z79.02 Long term (current) use of antithrombotics/antiplatelets; Z87.891 Personal history of nicotine dependence; E11.9 Type 2 diabetes mellitus without complications; I10 Essential (primary) hypertension; I25.10 Atherosclerotic heart disease of native coronary artery without angina pectoris
CPT/HCPCS: 81003; 96372; 99284; J1100; J1885; J2360; J9999

== ENCOUNTER 2025-05-08 05:05 | Emergency (ER) | payer MEDICARE, MEDICAID, SELFPAY ==
[2025-05-08 03:51] VITALS: BP 166/87; PULSE 66; RESP 18; TEMP 36.4; O2SAT 96; BMI 38.0
[2025-05-08 04:04] VITALS: BP 166/87; PULSE 74; O2SAT 97
--- NOTE | 2025-05-08 04:10 | CTR_ITS ---
PROCEDURE INFORMATION: Exam: CT Abdomen And Pelvis Without Contrast Exam date and time: 05/08/2025 4:37 AM Age: 54 years old Clinical indication: Abdominal pain; Flank; Right; Additional info: Int R flank pain, HX stones TECHNIQUE: Imaging protocol: Computed tomography of the abdomen and pelvis without contrast. Radiation optimization: All CT scans at this facility use at least one of these dose optimization techniques: automated exposure control; mA and/or kV adjustment per patient size (includes targeted exams where dose is matched to clinical indication); or iterative reconstruction. COMPARISON: CT abdomen pelvis w con* [id number] 03/01/2025 6:43 PM RADIATION DOSE METRICS: Total DLP (mGy-cm): 714.9 FINDINGS: Liver: Normal. No mass. Gallbladder and biliary ducts: Normal. No calcified stones. No ductal dilation. Pancreas: Normal. No ductal dilation. Spleen: Normal. No splenomegaly. Adrenal glands: Normal. No mass. Kidneys and ureters: Normal. No hydronephrosis. Stomach and bowel: Colonic diverticulosis is present without diverticulitis. Bowel has normal caliber. Appendix: No evidence of appendicitis. Intraperitoneal space: Unremarkable. No free air. No significant fluid collection. Vasculature: Aortoiliac atherosclerotic disease is seen without evidence of aneurysm. Lymph nodes: Unremarkable. No enlarged lymph nodes. Urinary bladder: Unremarkable as visualized. Reproductive: Unremarkable as visualized. Bones/joints: Moderate degenerative changes in the spine. Chronic L5 pars interarticularis defects. No acute or suspicious osseous abnormality. Soft tissues: Unremarkable. CT/CT kidney stone [id number] IMPRESSION: No evidence of urolithiasis, obstructive uropathy, or other acute abdominal or pelvic process.
[2025-05-08 04:28] VITALS: RESP 15
[2025-05-08] MEDS: oxyCODONE 5 mg IR Tab/Cap PO (04:28)
--- NOTE | 2025-05-08 04:48 | W.ED.BACK ---
HPI - Back Pain/Injury General: Chief Complaint: Back Pain/Injury Stated Complaint: sleeping on the floor in public? History of Present Illness: Patient is a 54-year-old male with past medical history of CAD, diabetes who presents to the ED with back pain. EMS was initially called to scene for patient sleeping in bathroom and then when they woke him up he was complaining of back pain so they brought him here for further evaluation, he has essentially deaf from a prior traumatic accident. He states he recently got out of the hospital for similar, thinks his stone has persisted and gotten worse, is taking no daily medications currently. Denies any recent fevers, chills, diaphoresis, NVD, penile or testicular pain. The pain is in his mid right thoracic region and intermittent and sharp. Related Data Home Medications ?Medication ?Instructions ?Recorded ?Confirmed insulin glargine 100 unit/mL (3 15 unit SUBCUT BID 11/04/24 04/22/25 mL) subcutaneous pen (Lantus Solostar U-100 Insulin) aspirin 81 mg tablet,delayed 81 mg PO DAILY 01/10/25 04/22/25 release glipizide 10 mg tablet 10 mg PO DAILY 03/13/25 04/22/25 metformin 1,000 mg tablet 1,000 mg PO BID 03/13/25 04/22/25 Previous Rx's ?Medication ?Instructions ?Recorded fluticasone propionate 110 1 puff inhalation BID #12 grams 05/10/24 mcg/actuation HFA aerosol inhaler nitroglycerin 0.4 mg sublingual 0.4 mg sublingual Q5M PRN chest 08/03/24 tablet pain #25 tabs atorvastatin 80 mg tablet 80 mg PO DAILY #90 tabs 02/28/25 clopidogrel 75 mg tablet (Plavix) 75 mg PO DAILY #90 tabs 02/28/25 metoprolol succinate 25 mg 25 mg PO DAILY #90 tabs 02/28/25 tablet,extended release 24 hr olmesartan 20 mg tablet 20 mg PO DAILY #90 tabs 02/28/25 sitagliptin phosphate 100 mg 100 mg PO DAILY #90 tabs 02/28/25 tablet (Januvia) sulfamethoxazole 800 1 tab PO BID #14 tabs 04/09/25 mg-trimethoprim 160 mg tablet (Bactrim DS) blood sugar diagnostic (Flirtic.comTouch #100 ea 04/16/25 Ultra Test strips) 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 meter (OneTouch #1 ea 04/16/25 Ultra2 Meter) lancets 30 gauge #100 ea 04/16/25 prednisone 10 mg tablets in a dose 10 mg PO DIRECTED #21 ea 04/22/25 pack Allergies Allergy/AdvReac Type Severity Reaction Status Date / Time No Known Allergies Allergy Verified 04/22/25 12:28 Review of Systems General: Reports: 10 or more systems reviewed and unremarkable except in HPI and below : Reports: flank pain PFSH ED PFSH: Medical History (Updated 05/08/25 @ 06:08 by Cristhian Sandoval DO) CAD (coronary artery disease) Muteness Bilateral hearing loss Generalized anxiety disorder Mild intermittent asthma Essential hypertension Type 2 diabetes mellitus without complications Surgical History History of coronary artery stent placement 09/05?KENISHA to mid RCA balloon angioplasty of LAD to D1, distal LAD, Ankle fracture, left With surgical fixation - Hx of tonsillectomy 2003 History of cochlear implant lost his device. follows with someone in [facility]. History of surgical procedure on mouth reports history of tongue surgery Family History Mother , etoh Diabetes Social History Smoking and tobacco/nicotine status: never used tobacco/nicotine Quit status (tobacco/nicotine): has quit using Year quit tobacco: 1998 Former quit date comment: 03/1999 Alcohol intake: former Year of sobriety/quit date alcohol: 2021 Former alcohol use details: He quit 2 years after his mom Substance/Drug Use: never Additional social history: living in homeless skilled nursing Marital status: Single Highest education level completed: 12th Grade, No Diploma Current occupational status: disabled Physical Exam Narrative: EXAM NARRATIVE: Patient overall well-appearing, nontoxic, vital stable on arrival, afebrile, no acute distress. Benign exam, specifically looking at his back he has no midline cervical, thoracic or lumbar tenderness, no step-offs, deformities or ecchymosis. No reproducible CVA tenderness, abdomen soft, nondistended, nontender, bowel sounds intact. Course Vital Signs: Vital signs: Vital Signs Temperature 97.6 F 05/08/25 03:51 Pulse Rate 65 10/28/25 07:04 Respiratory Rate 15 05/08/25 04:28 Blood Pressure 138/81 05/08/25 07:04 Pulse Oximetry 96 05/08/25 07:04 Oxygen Delivery Me thod Room Air 05/08/25 05:56 MDM - Back Pain/Injury Medical Decision Making -ddx: Nephrolithiasis, pyelonephritis, cystitis, perinephric abscess, homelessness, aortic pathology - Patient overall well-appearing, with subacute presentation of back pain, has had kidney stones prior, does not think he has had any complications requiring intervention from this, seemingly persistent pain since his recent admission for similar. Denies any fevers, vomiting, decreased appetite. Will evaluate with UA, CT, provide pain control with oxycodone and reassess. Labs Radiology Impressions Abdomen/Pelvis CT 05/08/25 04:10 IMPRESSION: No evidence of urolithiasis, obstructive uropathy, or other acute abdominal or pelvic process. Laboratory Results Urine Color Yellow (Yellow) 05/08/25 05:55 Urine Appearance Clear (CLEAR) 05/08/25 05:55 Urine pH 6.0 (5-7) 05/08/25 05:55 Ur Specific [place] 1.020 (1.005-1.030) 05/08/25 05:55 Urine Protein Negative (Negative) 05/08/25 05:55 Urine Glucose (UA) 3+ (Normal) H 05/08/25 05:55 Urine Ketones Negative (Negative) 05/08/25 05:55 Urine Blood Negative (Negative) 05/08/25 05:55 Urine Nitrate Negative (Negative) 05/08/25 05:55 Urine Bilirubin Negative (Negative) 05/08/25 05:55 Urine Urobilinogen 0.2 mg/dL (Negative) 05/08/25 05:55 Ur Leukocyte Esterase Negative (Negative) 05/08/25 05:55 Urine RBC 0-2 /hpf (0-2) 05/08/25 05:55 Urine WBC 0-5 /hpf (0-5) 05/08/25 05:55 Ur Squamous Epith Cells 0-5 /hpf (0-5) 05/08/25 05:55 Amorphous Sediment Not Reportable 05/08/25 05:55 Urine Bacteria None seen /hpf (NONE) 05/08/25 05:55 Hyaline Casts 0-4 /lpf H 05/08/25 05:55 XR interpretation done by ED provider, pending radiology final review EKG Data EKG 1: Interpretation: Normal sinus rhythm at 68 bpm, no IL, QRS, QTc prolongation, no ST elevation or depression Discharge Plan Discharge Patient Disposition: Home Clinical Impression: Back pain of thoracolumbar region Condition: Stable Prescriptions: No Action fluticasone propionate 110 mcg/actuation HFA aerosol inhaler 1 puff inhalation BID Qty: 12 11RF lidocaine-epinephrine 2 %-1:100,000 solution 4 ml Infiltration ONCE Qty: 4 0RF nitroglycerin 0.4 mg tablet, sublingual 0.4 mg sublingual Q5M PRN (Reason: chest pain) Qty: 25 2RF Rx Instructions: do not exceed 3 doses per episode atorvastatin 80 mg tablet 80 mg PO DAILY Qty: 90 3RF clopidogrel [Plavix] 75 mg tablet 75 mg PO DAILY Qty: 90 3RF olmesartan 20 mg tablet 20 mg PO DAILY Qty: 90 3RF Januvia 100 mg tablet 100 mg PO DAILY Qty: 90 3RF metoprolol succinate 25 mg tablet extended release 24 hr 25 mg PO DAILY Qty: 90 3RF Rx Instructions: 02/28/[address] Christopher at afternoon appt. sulfamethoxazole-trimethoprim [Bactrim DS] 800-160 mg tablet 1 tab PO BID Qty: 14 0RF (DME) 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 meter [OneTouch Ultra2 Meter] Misc See Rx Instructions .ROUTE .MEDSUPPLY Qty: 1 0RF Rx Instructions: As directed (DME) OneTouch Ultra Test Strip See Rx Instructions .ROUTE .MEDSUPPLY Qty: 100 6RF Rx Instructions: As directed (DME) lancets 30 gauge misc See Rx Instructions .Route Qty: 100 6RF Rx Instructions: As directed to check glucose up to 3x/day insulin glargine [Lantus Solostar U-100 Insulin] 100 unit/mL (3 mL) insulin pen 15 unit SUBCUT BID aspirin 81 mg Tablet,Delayed Release (Dr/Ec) 81 mg PO DAILY glipizide 10 mg tablet 10 mg PO DAILY metformin 1,000 mg tablet 1,000 mg PO BID prednisone 10 mg tablets,dose pack 10 mg PO DIRECTED Qty: 21 0RF Rx Instructions: see taper instructions 6 tablets on day 1, 5 tablets on day 2, 4 tablets on day 3, 3 tablets on day 4, 2 tablets on day 5, and 1 tablet a day 6. P.o. Discharge Orders: Discharge ED (Routine); Ordered 05/08/25 Ordered By: Jamal Trevizo Referrals: Braulio Hollins MD [Primary Care Provider, [facility]] Discharge Diet: Advance as tolerated Discharge Activity: Resume usual activity Patient Instructions: Opioid Safety, Pain Management, Patient Portal & Gerda Instructions Activity Restrictions/Additional Instructions: You were seen for back pain, your evaluated with urine test, EKG and CT scan that were reassuring for no traumatic injury or kidney stone. Most likely cause of your injury is some degree of muscular strain, treat this with ice packs 20 minutes at a time every few hours. Alternate ibuprofen 4 to milligrams and Tylenol 650 mg every 4 hours as needed. Return to the ED with severe worsening or pain, numbness of your thighs, inability to walk, any other emergent concerns. Print Language: Citizen [place] Sign Language Coding Level of Care Code ED Chiropractic Doctor for Eugenio Stone
--- NOTE | 2025-05-08 05:53 | ECG_ITS ---
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 Measurements Intervals [place] Rate: 68 P: 57 GA: 169 QRS: -20 QRSD: 74 T: 22 QT: 402 QTc: 429 Interpretive Statements SINUS RHYTHM LOW QRS VOLTAGE IN PRECORDIAL LEADS [QRS DEFLECTION < 1.0 mV IN CHEST LEADS] Compared to ECG 03/13/2025 12:40:04 NO SIGNIFICANT CHANGE Electronically Signed On 05-10-2025 08:48:28 CDT by Evangelist Guadalupe M.D. [email or web address]
[2025-05-08 05:56] VITALS: BP 143/73; PULSE 62; O2SAT 95
[2025-05-08 06:17] LABS: Glucose Urine UA 3+ (Normal); Nitrate Urine Negative (Negative); Specific Gravity, Urine 1.020 (1.005-1.030)
[2025-05-08 06:22] LABS: Add Urine Microscopic? YES
[2025-05-08 07:04] VITALS: BP 138/81; PULSE 65; O2SAT 96
== END 2025-05-08 07:06 | disposition home or self-care (01) ==
PROVIDERS: Emergency Provider Student in an Organized Health Care Education/Training Program; PCP Family Medicine
DX: M54.89 Other dorsalgia (principal); Z79.4 Long term (current) use of insulin; Z79.82 Long term (current) use of aspirin; Z79.84 Long term (current) use of oral hypoglycemic drugs; Z87.891 Personal history of nicotine dependence; I25.10 Atherosclerotic heart disease of native coronary artery without angina pectoris; E11.9 Type 2 diabetes mellitus without complications; I10 Essential (primary) hypertension
CPT/HCPCS: 74176; 81001; 93005; 99284; J9999

== ENCOUNTER 2025-06-09 13:59 | Emergency (ER) | payer MEDICARE, MEDICAID, SELFPAY ==
[2025-06-09 14:01] VITALS: BP 130/81; PULSE 99; RESP 18; TEMP 36.6; O2SAT 99
--- NOTE | 2025-06-09 14:22 | W.ED.EXTPRO ---
HPI - Extremity Problem General: Chief complaint: Extremity Injury, Lower Stated complaint: R back of foot pain Time Seen by Provider: 06/09/25 14:03 History of Present Illness: Patient is a 54-year-old gentleman, homeless, that had new boots, with posterior right heel pain. He comes in complaining of a blister on his right posterior heel. Pertinent factors are his diabetes, peripheral arterial disease. No fevers. This occurred just prior to arrival today. No fevers. No close or open blister. Minimal redness and discomfort to this posterior right heel. Associated symptoms: Deny chest pain, fever(s) or rash Related Data Home Medications ?Medication ?Instructions ?Recorded ?Confirmed insulin glargine 100 unit/mL (3 15 unit SUBCUT BID 11/04/24 04/22/25 mL) subcutaneous pen (Lantus Solostar U-100 Insulin) aspirin 81 mg tablet,delayed 81 mg PO DAILY 01/10/25 04/22/25 release glipizide 10 mg tablet 10 mg PO DAILY 03/13/25 04/22/25 metformin 1,000 mg tablet 1,000 mg PO BID 03/13/25 04/22/25 Previous Rx's ?Medication ?Instructions ?Recorded fluticasone propionate 110 1 puff inhalation BID #12 grams 05/10/24 mcg/actuation HFA aerosol inhaler nitroglycerin 0.4 mg sublingual 0.4 mg sublingual Q5M PRN chest 08/03/24 tablet pain #25 tabs atorvastatin 80 mg tablet 80 mg PO DAILY #90 tabs 02/28/25 clopidogrel 75 mg tablet (Plavix) 75 mg PO DAILY #90 tabs 02/28/25 metoprolol succinate 25 mg 25 mg PO DAILY #90 tabs 02/28/25 tablet,extended release 24 hr olmesartan 20 mg tablet 20 mg PO DAILY #90 tabs 02/28/25 sitagliptin phosphate 100 mg 100 mg PO DAILY #90 tabs 02/28/25 tablet (Januvia) sulfamethoxazole 800 1 tab PO BID #14 tabs 04/09/25 mg-trimethoprim 160 mg tablet (Bactrim DS) blood sugar diagnostic (OneTouch #100 ea 04/16/25 Ultra Test strips) 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 meter (OneTouch #1 ea 04/16/25 Ultra2 Meter) lancets 30 gauge #100 ea 04/16/25 prednisone 10 mg tablets in a dose 10 mg PO DIRECTED #21 ea 04/22/25 pack Allergies Allergy/AdvReac Type Severity Reaction Status Date / Time No Known Allergies Allergy Verified 06/09/25 14:10 Review of Systems General: Reports: 10 or more systems reviewed and unremarkable except in HPI and below Const: Denies: fever(s) or chills Eyes: Denies: change in vision or blurry vision ENMT: Denies: throat pain or mouth pain Card: Denies: chest pain or palpitations Resp: Denies: dyspnea or non-productive cough GI: Denies: abdominal pain, nausea or vomiting : Denies: flank pain or difficulty urinating Musc: Reports: extremity pain; Denies: neck pain, extremity swelling, joint pain, joint swelling, joint redness, joint warmth or joint stiffness Skin/Breast: Reports: sores and changes in skin color (minimal local redness); Denies: rash or pruritus Neuro: Denies: headache(s) or numbness in extremities Psych: Denies: anxiety or depression PFS ED PFSH: Medical History (Updated 06/09/25 @ 14:27 by DANIELLE Nash) CAD (coronary artery disease) Muteness Bilateral hearing loss Generalized anxiety disorder Mild intermittent asthma Essential hypertension Type 2 diabetes mellitus without complications Surgical History History of coronary artery stent placement 09/05?KENISHA to mid RCA balloon angioplasty of LAD to D1, distal LAD, Ankle fracture, left With surgical fixation - [place] Hx of tonsillectomy 2003 History of cochlear implant lost his device. follows with someone in [facility]. History of surgical procedure on mouth reports history of tongue surgery Family History Mother , etoh Diabetes Social History Smoking and tobacco/nicotine status: never used tobacco/nicotine Quit status (tobacco/nicotine): has quit using Year quit tobacco: 1998 Former quit date comment: 03/1999 Alcohol intake: former Year of sobriety/quit date alcohol: 2021 Former alcohol use details: He quit 2 years after his mom Substance/Drug Use: never Additional social history: living in [place] [facility] Marital status: Single Highest education level completed: 12th Grade, No Diploma Current occupational status: disabled Physical Exam Const: COMMON NORMALS: no acute distress, average body habitus, patient oriented x3, no limitations, healthy appearing, alert and well nourished EXAM LIMITATIONS: language barrier (no issues) HENMT: COMMON NORMALS: normocephalic and atraumatic; hearing grossly not normal bilaterally HEAD & SCALP: normocephalic and atraumatic Eye: COMMON NORMALS: Equal, round and reactive pupils present, EOMs intact bilaterally and conjunctivae normal CONJUNCTIVA: Yes conjunctivae normal PUPIL: Yes Equal, round and reactive pupils present Neck/C-Spine: COMMON NORMALS: full ROM, no lymphadenopathy, supple and no meningeal signs Lymph: LYMPHATIC: no lymphadenopathy noted Chest: COMMONS NORMALS: normal inspection of the chest and normal palpation of entire chest wall Resp: COMMON NORMALS: normal respiratory effort, No retractions, No use of accessory muscles and clear to auscultation bilaterally AUSCULTATION: clear to auscultation bilaterally Cardio: COMMON NORMALS: regular rate and regular rhythm RATE: regular rate RHYTHM: regular rhythm GI: COMMON NORMALS: Normal to inspection, nondistended, normoactive bowel sounds present, Soft to palpation, non-tender and No hepatosplenomegaly present PALPATION: Yes Soft to palpation and Yes No hepatosplenomegaly present : COMMON NORMALS: Yes no CVA tenderness BLADDER/KIDNEY EXAM: Yes no CVA tenderness Back/Pelvis: COMMON NORMALS: no CVA tenderness Neuro: COMMON NORMALS: patient oriented x3 SENSORIUM/ORIENTATION: Yes alert MENINGEAL SIGNS: Yes no meningeal signs Skin: SKIN IMAGES (MALE):  1. small closed, flat blister <0.25 cm Course Vital Signs: Vital signs: Vital Signs Temperature 97.9 F 06/09/25 14:01 Pulse Rate 86 06/09/25 14:50 Respiratory Rate 18 06/09/25 14:01 Blood Pressure 126/87 06/09/25 14:50 Pulse Oximetry 94 06/09/25 14:50 MDM - Extremity (Nontraumatic) Medical Decision Making Patient is 54-year-old gentleman with DM, PAD, deafness, homelessness. He has a blister to his posterior right heel after new boots. This occurred today. This is a small area with minimal stage II, mainly stage I. A padding to protect this area will be placed on the posterior right heel. There is no redness. There is no need for an x-ray at this time. There is no need for antibiotics at this time. I have encouraged patient to return to the ED if any of these changes occur. He states understanding. Communication was not difficult utilizing written instructions. Patient chose this method of communication. All of his questions answered to his satisfaction. He is going to the [facility] for any additional help today. Medical Records I reviewed the patient's medical records. No radiology studies performed this visit Discharge Plan Discharge Patient Disposition: Home Clinical Impression: Blister of right heel Condition: Stable Prescriptions: No Action fluticasone propionate 110 mcg/actuation HFA aerosol inhaler 1 puff inhalation BID Qty: 12 11RF lidocaine-epinephrine 2 %-1:100,000 solution 4 ml Infiltration ONCE Qty: 4 0RF nitroglycerin 0.4 mg tablet, sublingual 0.4 mg sublingual Q5M PRN (Reason: chest pain) Qty: 25 2RF Rx Instructions: do not exceed 3 doses per episode atorvastatin 80 mg tablet 80 mg PO DAILY Qty: 90 3RF clopidogrel [Plavix] 75 mg tablet 75 mg PO DAILY Qty: 90 3RF olmesartan 20 mg tablet 20 mg PO DAILY Qty: 90 3RF Januvia 100 mg tablet 100 mg PO DAILY Qty: 90 3RF metoprolol succinate 25 mg tablet extended release 24 hr 25 mg PO DAILY Qty: 90 3RF Rx Instructions: 02/28/[address] Christopher at afternoon appt. sulfamethoxazole-trimethoprim [Bactrim DS] 800-160 mg tablet 1 tab PO BID Qty: 14 0RF (DME) 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 meter [OneTouch Ultra2 Meter] Misc See Rx Instructions .ROUTE .MEDSUPPLY Qty: 1 0RF Rx Instructions: As directed (DME) OneTouch Ultra Test Strip See Rx Instructions .ROUTE .MEDSUPPLY Qty: 100 6RF Rx Instructions: As directed (DME) lancets 30 gauge misc See Rx Instructions .Route Qty: 100 6RF Rx Instructions: As directed to check glucose up to 3x/day insulin glargine [Lantus Solostar U-100 Insulin] 100 unit/mL (3 mL) insulin pen 15 unit SUBCUT BID aspirin 81 mg Tablet,Delayed Release (Dr/Ec) 81 mg PO DAILY glipizide 10 mg tablet 10 mg PO DAILY metformin 1,000 mg tablet 1,000 mg PO BID prednisone 10 mg tablets,dose pack 10 mg PO DIRECTED Qty: 21 0RF Rx Instructions: see taper instructions 6 tablets on day 1, 5 tablets on day 2, 4 tablets on day 3, 3 tablets on day 4, 2 tablets on day 5, and 1 tablet a day 6. P.o. Discharge Orders: Discharge ED (Routine); Ordered 06/09/25 Ordered By: Nasreen Reed Referrals: Braulio Hollins MD [Primary Care Provider, Family Practice] Discharge Diet: Usual diet Discharge Activity: Resume usual activity Patient Instructions: [place] (ED), Patient Portal & Gerda Instructions Activity Restrictions/Additional Instructions: - Keep the covering on your heel. When this falls off, replace it with another cover to ensure it is healing. If you have worsening pain, or redness, fever greater than 100.4 ?F return to the ED. - Get different shoes so this does not keep happening. Is important to have good shoes for your feet being that you are diabetic. - Make sure you keep taking your aspirin, and clopidogrel for your peripheral arterial disease. Is important for this area to have good blood flow. - Please take good care of yourself in this whether Thank you for choosing [facility] for your healthcare needs today. You have been screened and evaluated and felt safe for discharge. Health conditions do change or evolve sometimes and as such it is important that you follow up with your Primary Doctor to be re checked, 3-5 days is a general good time frame for follow up. You are always welcome to return to the ED for re assessment if your symptoms are worsening or you have new concerns Print Language: [place] Sign Language Coding Level of Care Code ED Remote Coders for Eugenio Stone
[2025-06-09 14:50] VITALS: BP 126/87; PULSE 86; O2SAT 94
== END 2025-06-09 14:55 | disposition home or self-care (01) ==
PROVIDERS: Emergency Provider Physician Assistant; PCP Family Medicine
DX: S90.821A Blister (nonthermal), right foot, initial encounter (principal); X58.XXXA Exposure to other specified factors, initial encounter; Z79.4 Long term (current) use of insulin; Z79.82 Long term (current) use of aspirin; Z79.84 Long term (current) use of oral hypoglycemic drugs; Z87.891 Personal history of nicotine dependence; I25.10 Atherosclerotic heart disease of native coronary artery without angina pectoris; I10 Essential (primary) hypertension; E11.9 Type 2 diabetes mellitus without complications
CPT/HCPCS: 99282

== ENCOUNTER → 2025-06-18 11:36 | Outpatient (BNVA) | payer MEDICARE, MEDICAID, SELFPAY | PROVIDERS: PCP Family Medicine; Visit Provider Family Medicine | DX: E11.9 Type 2 diabetes mellitus without complications (principal); R25.2 Cramp and spasm; E53.8 Deficiency of other specified B group vitamins; Z51.81 Encounter for therapeutic drug level monitoring | CPT/HCPCS: 80053; 82607; 83036; 83735; 85025 ==